=== PATIENT | male | born 1965 | race African-American/Black ===

== ENCOUNTER 2018-06-30 14:13 | Inpatient (IN) | payer MEDICARE, MEDICAID ==
[~2018-06-30] VITALS: Ht 180.3 cm; Wt 86.2 kg
[2018-06-30 14:30] VITALS: BP 120/67
--- NOTE | 2018-06-30 14:30 | NUR ---
ED Nurse Note: pt was brought in to ER by ambulance from [facility] due to abdominal pain 01/31 since 0300 this morning. pt aao x4, has multiple pressure ulcers which were documented, colostomy on Lt lower abdomen, F/C. pt aao x4
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
[2018-06-30] MEDS ORDERED: Morphine Sulfate 4mg/ml Inj (IV USE ONLY) IVP ONE ×2 (14:45→15:15)
--- NOTE | 2018-06-30 15:11 | NUR ---
ED Nurse Note: IV line is not being made due to hard to obtain vein. MD made aware and lab was called to come and draw blood.
--- NOTE | 2018-06-30 15:13 | Diagnostic Imaging Report ---
EXAM: XR Abdomen, 1 View CLINICAL HISTORY: ABD PAIN TECHNIQUE: Frontal supine view of the abdomen/pelvis. COMPARISON: No relevant prior studies available. FINDINGS: Gastrointestinal tract: Paucity of small bowel gas. Bones/joints: No acute fracture. IMPRESSION: Paucity of small bowel gas.
--- NOTE | 2018-06-30 15:16 | Diagnostic Imaging Report ---
EXAM: XR Chest, 1 View CLINICAL HISTORY: ABD PAIN TECHNIQUE: Frontal view of the chest. COMPARISON: No relevant prior studies available. FINDINGS: Lungs: Accentuation of bronchovascular markings. Pleural space: Right pleural calcification or potentially loculated right pneumothorax. Heart: Unremarkable. No cardiomegaly. Mediastinum: Unremarkable. Bones/joints: Left rib fractures. Surgical hardware at midline, could be related to the spine. IMPRESSION: Right pleural calcification or potentially loculated right pneumothorax. CT can characterize as warranted. <MYCVCSECTION> Critical Value Communications 06/30/18 15:20 Verify Receipt Verified receipt with FERNANDO Burrows in ER for Dr. Rodríguez on 06/30 15:19 (-08:00)
--- NOTE | 2018-06-30 15:48 | NUR ---
ED Nurse Note: called lab again to try to draw blood. they said they will come up when they are available.
[2018-06-30 16:05] LABS: APPEARANCE,URINE CLOUDY; BILIRUBIN, URINE NEGATIVE (NEGATIVE); COLOR,URINE PALE YELLOW; GLUCOSE, URINE (UA) NEGATIVE (NEGATIVE); KETONES,URINE NEGATIVE (NEGATIVE); LEUKOCYTE ESTERASE ,URINE 3+ (NEGATIVE); NITRITE,URINE NEGATIVE (NEGATIVE); PH,URINE 8 (4.5-8.0); PROTEIN,URINE 1+ (NEGATIVE); UROBILINOGEN,URINE NORMAL MG/DL (0.0-1.0)
[2018-06-30 16:22] LABS: EOSINOPHILS % (AUTO) 5.4 % (0.0-3.0); HEMATOCRIT 38.6 % (42.0-52.0); HEMOGLOBIN 12.6 G/DL (14.2-18.0); LYMPHOCYTES % (AUTO) 34.4 % (20.0-45.0); MEAN CORPUSCULAR VOLUME 85 FL (80-99); MONOCYTES % (AUTO) 7.6 % (1.0-10.0); NEUTROPHILS % (AUTO) 50.5 % (45.0-75.0); PLATELET COUNT 358 K/UL (150-450); RED BLOOD COUNT 4.54 M/UL (4.70-6.10); RED CELL DISTRIBUTION WIDTH 13.3 % (11.6-14.8); WHITE BLOOD COUNT 10.1 K/UL (4.8-10.8)
[2018-06-30 16:33] LABS: ANION GAP 6 mmol/L (5-15); BLOOD UREA NITROGEN 9 mg/dL (7-18); CALCIUM 9.1 MG/DL (8.5-10.1); CARBON DIOXIDE 30 MMOL/L (21-32); CHLORIDE 102 MMOL/L (98-107); CREATININE 1.1 MG/DL (0.55-1.30); POTASSIUM 3.6 MMOL/L (3.5-5.1); SODIUM 138 MMOL/L (136-145)
[2018-06-30 16:38] LABS: ALANINE AMINOTRANSFERASE 19 U/L (12-78); ALBUMIN 2.5 G/DL (3.4-5.0); ALBUMIN/GLOBULIN RATIO 0.4 (1.0-2.7); ALKALINE PHOSPHATASE 132 U/L (46-116); ASPARTATE AMINO TRANSFERASE 28 U/L (15-37); BILIRUBIN,TOTAL 0.2 MG/DL (0.2-1.0); CREATINE KINASE 296 U/L (26-308)
[2018-06-30] MEDS ORDERED: cefTRIAXone 1 GM in NS 55 ML IVPB ONE (17:15)
--- NOTE | 2018-06-30 17:45 | NUR ---
ED Nurse Note: Report given to ADRIANNA Mendoza
[2018-06-30] MEDS ORDERED: LACTULOSE20 GM/301 ORAL (17:46)
[2018-06-30] MEDS ORDERED: BACLOFEN20 MG ORAL (17:46)
[2018-06-30] MEDS ORDERED: ACETAMINOPHEN325 M1 ORAL (17:46)
[2018-06-30] MEDS ORDERED: CRANBERRY450 M5 PO (17:46)
[2018-06-30] MEDS ORDERED: DOCUSATE SODIU100 MG ORAL (17:46)
[2018-06-30] MEDS ORDERED: MILK OF MA400 MG/51 ORAL (17:46)
[2018-06-30] MEDS ORDERED: TIZANIDINE HCL4 MG ORAL (17:46)
[2018-06-30 17:53] VITALS: BP 120/67
--- NOTE | 2018-06-30 17:55 | NUR ---
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
[2018-06-30] MEDS ORDERED: Morphine Sulfate 4mg/ml Inj (IV USE ONLY) IVP PRN (18:45)
[2018-06-30] MEDS ORDERED: Milk of Magnesia 30ml Ud ORAL PRN (18:45)
[2018-06-30] MEDS ORDERED: oxyCODONE HCL/Acetaminophen 5/325mg ORAL PRN (18:45)
[2018-06-30] MEDS ORDERED: ACIDOPHILUS1 EAC6 PO (18:50)
[2018-06-30] MEDS ORDERED: MULTIVITAMINS1 EAC8 ORAL (18:50)
[2018-06-30] MEDS ORDERED: CYCLOBENZAPRINE5 MG ORAL (18:50)
[2018-06-30] MEDS ORDERED: MOM30 ML ORAL (18:50)
[2018-06-30] MEDS ORDERED: ATIVAN1 MG ORAL (18:50)
--- NOTE | 2018-06-30 19:32 | NUR ---
HAND-OFF: Report given to ADRIANNA mcnally.
--- NOTE | 2018-06-30 19:47 | NUR ---
NURSE NOTES: Received patient awake in bed. eating dinner, no s/s of acute distress, no c/o pain at this time. IV site patent, asymptomatic, dressing dry an Addendum: 06/30/18 at 1952 by Kale Rodriguez RN continued: dressing dry and intact. tim catheter noted, colostomy on left lower quadrant noted. Patient requested extra blanket c/o of room being cold. Bed on lowest position, 2 side rails up, call light within reach.
[2018-06-30 20:00] VITALS: BP 127/69
[2018-06-30] MEDS ORDERED: Hydromorphone 0.5mg/0.5ml inj IVP PRN (21:45)
[2018-06-30 21:46] VITALS: BP 139/73
[2018-06-30] MEDS: Hydromorphone 0.5mg/0.5ml inj IVP PRN (21:49)
[2018-07-01] MEDS: Hydromorphone 0.5mg/0.5ml inj IVP PRN ×5 (03:04→20:43)
[2018-07-01 04:00] VITALS: BP 108/70
--- NOTE | 2018-07-01 07:00 | NUR ---
HAND-OFF: Report given to ADRIANNA Sanders.
--- NOTE | 2018-07-01 07:08 | NUR ---
NURSE NOTES: received report from ADRIANNA Yang. patient in bed. alert. verbally responsive. no respiratory distress noted. no c/o pain at this time. colostomy in place. f/c draining well. IV intact. bed in the lowest position. call light within reach. will continue to monitor.
[2018-07-01 08:00] VITALS: BP 117/67
[2018-07-01] MEDS: Cyclobenzaprine 10mg Tab ORAL SCH ×2 (08:10→17:31)
[2018-07-01] MEDS: Docusate 100mg cap ORAL SCH ×2 (08:11→17:30)
[2018-07-01] MEDS: Lactobacillus-GG tablet ORAL SCH ×2 (08:11→17:30)
[2018-07-01] MEDS: Lactulose 20gm/30ml UDC ORAL SCH (08:12)
[2018-07-01] MEDS: Enoxaparin 40mg Inj SUBQ SCH (08:12)
[2018-07-01 12:00] VITALS: BP 118/70
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
[2018-07-01 16:00] VITALS: BP 105/90
[2018-07-01] MEDS ORDERED: cefTRIAXone 1 GM in D5W 55 ML IVPB SCH (18:00)
--- NOTE | 2018-07-01 18:53 | NUR ---
HAND-OFF: Report given to ADRIANNA Yang.
--- NOTE | 2018-07-01 19:36 | NUR ---
NURSE NOTES: Received patient asleep in bed, no s/s of acute distress. IV site flushing but unable to infuse IVF through pump. tim catheter noted anchor in place, left lower quadrant colostomy noted. Bed on lowest position, call light and belongings within reach, 2 side rails up.
[2018-07-01 20:00] VITALS: BP 121/80
[2018-07-01] MEDS ORDERED: Cefepime HCl 1 GM in D5W 55 ML IVPB SCH (21:00)
[2018-07-01] MEDS ORDERED: oxyCODONE 15mg IR tab ORAL PRN (21:30)
--- NOTE | 2018-07-01 21:30 | NUR ---
NURSE NOTES: IV site painful according to patient. Patient refuses to get a new one reinserted stating "they poked me too many times in the ER already, I dont want to get poked again". Called Dr Carlson for PO abx and pain meds. Orders given and carried out.
[2018-07-01] MEDS ORDERED: cefTRIAXone 1 GM in D5W 50 ML IVPB SCH (22:45)
--- NOTE | 2018-07-01 22:50 | Infectious Diseases Prog Note ---
Assessment/Plan Assessment/Plan Full consult to follow: A) 1) uti 2) abdominal pain 3) pmh noted 4) allergies - nkda P) 1) levofloxacin po, ceftin po (patient refuses iv access) 2) check urine culture 3) check labs 4) thank you Subjective Allergies: Coded Allergies: No Known Allergies (Unverified , 06/30/18) Objective Vital Signs Last 24 Hour Vital Signs Date Time Temp Pulse Resp B/P (MAP) Pulse Ox O2 Delivery O2 Flow Rate FiO2 07/01/18 16:00 98.1 81 17 105/90 (95) 96 07/01/18 12:00 97.7 87 16 118/70 (86) 99 07/01/18 09:00 Room Air 07/01/18 08:00 97.8 72 20 117/67 (84) 97 07/01/18 04:00 98.5 98 16 108/70 (83) 96 Height (Feet): 5 Height (Inches): 11.00 Weight (Pounds): 190 Microbiology Date/Time Source Procedure Growth Status 06/30/18 15:45 Urine,Clean Catch Urine Culture - Preliminary Resulted Current Medications Medications (Trade) Dose Ordered Sig/Constantin Route PRN Reason Start Time Stop Time Status Last Admin Dose Admin Acetaminophen (Tylenol) 650 mg Q6H PRN ORAL Mild Pain/Temp > 100.5 06/30/18 18:45 07/30/18 18:44 Baclofen (Lioresal) 20 mg Q12H PRN ORAL Muscle Spasm 06/30/18 18:45 07/30/18 18:44 Cyclobenzaprine HCl (Flexeril) 5 mg TWICE A DAY ORAL 07/01/18 09:00 07/31/18 08:59 07/01/18 17:31 Docusate Sodium (Colace) 100 mg TWICE A DAY ORAL 07/01/18 09:00 07/31/18 08:59 07/01/18 17:30 Enoxaparin Sodium (Lovenox) 40 mg DAILY SUBQ 07/01/18 09:00 07/31/18 08:59 07/01/18 08:12 Lactobacillus Acidophilus (Culturelle) 1 tab TWICE A DAY ORAL 07/01/18 09:00 07/31/18 08:59 07/01/18 17:30 Lactulose (Cephulac) 20 gm DAILY ORAL 07/01/18 09:00 07/31/18 08:59 07/01/18 08:12 Levofloxacin (Levaquin) 750 mg Q24H ORAL 07/01/18 22:00 07/08/18 21:59 Lorazepam (Ativan) 1 mg Q8H PRN ORAL For Anxiety 06/30/18 18:45 07/07/18 18:44 Magnesium Hydroxide (Mom) 30 ml DAILYPRN PRN ORAL Constipation 06/30/18 18:45 07/30/18 18:44 Multivitamins (Multivitamins) 1 tab DAILY ORAL 07/01/18 09:00 07/31/18 08:59 07/01/18 08:11 Oxycodone HCl (Roxicodone) 15 mg Q4H PRN ORAL Moderate Pain (Pain Scale 4-6) 07/01/18 21:30 07/08/18 21:29 Oxycodone HCl (Roxicodone) 30 mg Q4H PRN ORAL Severe Pain (Pain Scale 7-10) 07/01/18 21:30 07/08/18 21:29 Marjorie Fulton MD Jul 01, 2018 22:50
[2018-07-01] MEDS: Levofloxacin 750mg tab ORAL SCH (23:18)
[2018-07-02] VITALS (7 sets, daily range): BP systolic 101–163; BP diastolic 66–84
[2018-07-02] MEDS: oxyCODONE 15mg IR tab ORAL PRN ×5 (00:41→21:15)
--- NOTE | 2018-07-02 07:13 | NUR ---
HAND-OFF: Report given to ADRIANNA Ramon.
[2018-07-02 07:14] LABS: BASOPHILS % (AUTO) 1.7 % (0.0-2.0); HEMATOCRIT 40.9 % (42.0-52.0); HEMOGLOBIN 13.1 G/DL (14.2-18.0); LYMPHOCYTES % (AUTO) 35.3 % (20.0-45.0); MEAN CORPUSCULAR VOLUME 86 FL (80-99); MONOCYTES % (AUTO) 5.8 % (1.0-10.0); NEUTROPHILS % (AUTO) 51.3 % (45.0-75.0); PLATELET COUNT 395 K/UL (150-450); RED BLOOD COUNT 4.74 M/UL (4.70-6.10); RED CELL DISTRIBUTION WIDTH 13.3 % (11.6-14.8); WHITE BLOOD COUNT 8.6 K/UL (4.8-10.8)
[2018-07-02 07:38] LABS: ANION GAP 6 mmol/L (5-15); BLOOD UREA NITROGEN 9 mg/dL (7-18); CALCIUM 9.6 MG/DL (8.5-10.1); CARBON DIOXIDE 31 MMOL/L (21-32); CHLORIDE 99 MMOL/L (98-107); POTASSIUM 4.4 MMOL/L (3.5-5.1); SODIUM 136 MMOL/L (136-145)
[2018-07-02] MEDS: Lactobacillus-GG tablet ORAL SCH ×2 (08:21→17:13)
[2018-07-02] MEDS: Lactulose 20gm/30ml UDC ORAL SCH ×2 (08:21→08:39)
[2018-07-02] MEDS: Cyclobenzaprine 10mg Tab ORAL SCH ×2 (08:22→17:13)
[2018-07-02] MEDS: Enoxaparin 40mg Inj SUBQ SCH (08:30)
[2018-07-02] MEDS: Docusate 100mg cap ORAL SCH ×2 (08:38→17:13)
[2018-07-02] MEDS: LORazepam 1mg tab ORAL PRN ×2 (10:10→23:17)
--- NOTE | 2018-07-02 14:30 | NUR ---
NURSE NOTES: dressing of L ischial tuberosity close to sacral area, L reyna and R foot was evaluated and changed by WCN, with assistance of primary nurse. Also, applied Calazime barrier cream to small skin erosion at tip of penis.
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
--- NOTE | 2018-07-02 17:29 | Infectious Diseases Prog Note ---
Assessment/Plan Assessment/Plan Full consult to follow: A) 1) gram neg uti, complicated uti 2) abdominal pain 3) pmh noted 4) allergies - nkda P) 1) levofloxacin po, ceftin po (patient refuses iv access) 2) check urine culture final 3) check labs 4) d/w Dr. Carlson Subjective Constitutional: Denies: fever Respiratory: Denies: shortness of breath Cardiovascular: Denies: chest pain Gastrointestinal/Abdominal: Denies: nausea, vomiting Neurologic: Denies: headache Allergies: Coded Allergies: No Known Allergies (Unverified , 06/30/18) Objective Vital Signs Last 24 Hour Vital Signs Date Time Temp Pulse Resp B/P (MAP) Pulse Ox O2 Delivery O2 Flow Rate FiO2 07/02/18 12:00 98.2 87 19 114/66 (82) 96 07/02/18 09:00 Room Air 07/02/18 08:52 97.2 07/02/18 08:00 97.7 99 18 121/73 (89) 96 07/02/18 04:00 97.2 102 18 112/70 (84) 97 07/02/18 00:00 98.0 100 18 120/79 (93) 96 07/01/18 21:00 Room Air 07/01/18 20:00 98.4 100 18 121/80 (94) 100 Height (Feet): 5 Height (Inches): 11.00 Weight (Pounds): 190 General Appearance: no acute distress HEENT: normocephalic, atraumatic, anicteric, mucous membranes moist Respiratory/Chest: lungs clear, normal breath sounds, no respiratory distress Cardiovascular: normal rate, regular rhythm Abdomen: normal bowel sounds, soft, non tender, no organomegaly Microbiology Date/Time Source Procedure Growth Status 06/30/18 15:50 Nasal Nares MRSA Culture - Final NO METHICILLIN RESISTANT STAPH AUREUS... Complete 06/30/18 15:45 Urine,Clean Catch Urine Culture - Preliminary Gram Negative Bacillus 1 Gram Negative Bacillus 2 Resulted 06/30/18 15:50 Rectum VRE Culture - Final NO VANCOMYCIN RESISTANT ENTEROCOCCUS ... Resulted 06/30/18 15:50 Rectum Pending Resulted Laboratory Tests Test 07/02/18 05:40 White Blood Count 8.6 K/UL (4.8-10.8) Red Blood Count 4.74 M/UL (4.70-6.10) Hemoglobin 13.1 G/DL (14.2-18.0) L Hematocrit 40.9 % (42.0-52.0) L Mean Corpuscular Volume 86 FL (80-99) Mean Corpuscular Hemoglobin 27.7 PG (27.0-31.0) Mean Corpuscular Hemoglobin Concent 32.1 G/DL (32.0-36.0) Red Cell Distribution Width 13.3 % (11.6-14.8) Platelet Count 395 K/UL (150-450) Mean Platelet Volume 5.3 FL (6.5-10.1) L Neutrophils (%) (Auto) 51.3 % (45.0-75.0) Lymphocytes (%) (Auto) 35.3 % (20.0-45.0) Monocytes (%) (Auto) 5.8 % (1.0-10.0) Eosinophils (%) (Auto) 6.0 % (0.0-3.0) H Basophils (%) (Auto) 1.7 % (0.0-2.0) Sodium Level 136 MMOL/L (136-145) Potassium Level 4.4 MMOL/L (3.5-5.1) Chloride Level 99 MMOL/L (98-107) Carbon Dioxide Level 31 MMOL/L (21-32) Anion Gap 6 mmol/L (5-15) Blood Urea Nitrogen 9 mg/dL (7-18) Creatinine 1.0 MG/DL (0.55-1.30) Estimat Glomerular Filtration Rate > 60 mL/min (>60) Glucose Level 89 MG/DL (74-106) Calcium Level 9.6 MG/DL (8.5-10.1) Current Medications Medications (Trade) Dose Ordered Sig/Constantin Route PRN Reason Start Time Stop Time Status Last Admin Dose Admin Acetaminophen (Tylenol) 650 mg Q6H PRN ORAL Mild Pain/Temp > 100.5 06/30/18 18:45 07/30/18 18:44 Baclofen (Lioresal) 20 mg Q12H PRN ORAL Muscle Spasm 06/30/18 18:45 07/30/18 18:44 Cefuroxime Axetil (Ceftin) 500 mg EVERY 12 HOURS ORAL 07/02/18 09:00 07/09/18 08:59 07/02/18 08:48 Cyclobenzaprine HCl (Flexeril) 5 mg TWICE A DAY ORAL 07/01/18 09:00 07/31/18 08:59 07/02/18 08:22 Docusate Sodium (Colace) 100 mg TWICE A DAY ORAL 07/01/18 09:00 07/31/18 08:59 07/01/18 17:30 Enoxaparin Sodium (Lovenox) 40 mg DAILY SUBQ 07/01/18 09:00 07/31/18 08:59 07/02/18 08:30 Lactobacillus Acidophilus (Culturelle) 1 tab TWICE A DAY ORAL 07/01/18 09:00 07/31/18 08:59 07/02/18 17:13 Lactulose (Cephulac) 20 gm DAILY ORAL 07/01/18 09:00 07/31/18 08:59 07/01/18 08:12 Levofloxacin (Levaquin) 750 mg Q24H ORAL 07/01/18 22:00 07/08/18 21:59 07/01/18 23:18 Lorazepam (Ativan) 1 mg Q8H PRN ORAL For Anxiety 06/30/18 18:45 07/07/18 18:44 07/02/18 10:10 Magnesium Hydroxide (Mom) 30 ml DAILYPRN PRN ORAL Constipation 06/30/18 18:45 07/30/18 18:44 Multivitamins (Multivitamins) 1 tab DAILY ORAL 07/01/18 09:00 07/31/18 08:59 07/02/18 08:21 Oxycodone HCl (Roxicodone) 15 mg Q4H PRN ORAL Moderate Pain (Pain Scale 4-6) 07/01/18 21:30 07/08/18 21:29 Oxycodone HCl (Roxicodone) 30 mg Q4H PRN ORAL Severe Pain (Pain Scale 7-10) 07/01/18 21:30 07/08/18 21:29 07/02/18 16:35 Marjorie Fulton MD Jul 02, 2018 17:29
--- NOTE | 2018-07-02 19:02 | NUR ---
CASE MANAGEMENT: REVIEW 53/M PRESENTED TO ED FROM HOME CC: ABD PAIN SI: ABD PAIN T 98.4 HR 119 RR 16 BP 105/75 SAT 96% ROOM AIR ALK PHOS 132 LIPASE 63 IS: NS IVF BOLUS X1 MORPHINE IV X1 ZOFRAN IV X1 MORPHINE IV X1 DILAUDID IV PATIENT ADMITTED TO MED/SURG 06/30/2018 DCP: PATIENT IS FROM [facility]
--- NOTE | 2018-07-02 19:16 | NUR ---
HAND-OFF: Report given to ADRIANNA Morales.
--- NOTE | 2018-07-02 19:47 | NUR ---
NURSE NOTES: Received patient in bed, alert oriented x4, bed bound, call light is within reach, bed is in locked, lowered, and alarm is on, no acute distress noted. Will continue to monitor for safety and comfort.
[2018-07-02] MEDS: Levofloxacin 750mg tab ORAL SCH (21:11)
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
[2018-07-03 00:10] VITALS: BP 97/69
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
[2018-07-03] MEDS: oxyCODONE 15mg IR tab ORAL PRN ×4 (02:03→16:32)
[2018-07-03 04:34] VITALS: BP 102/63
--- NOTE | 2018-07-03 07:03 | NUR ---
NURSE NOTES: Received a message from the lab , patient is positive for ESBL in the urine, called MD exchange and left a message for the MD.
--- NOTE | 2018-07-03 07:26 | NUR ---
HAND-OFF: Report given to Anna RODAS.
[2018-07-03 08:00] VITALS: BP 107/66
--- NOTE | 2018-07-03 08:19 | NUR ---
NURSE NOTES: Patient is alert and oriented X4. Patient reports having pressure on abdomen rather than pain. Patient is on P200 mattress. Bed is locked, in lowest position, and call light is within reach. Will continue to monitor.
[2018-07-03] MEDS: Lactobacillus-GG tablet ORAL SCH (08:42)
[2018-07-03] MEDS: Docusate 100mg cap ORAL SCH (08:42)
[2018-07-03] MEDS: Lactulose 20gm/30ml UDC ORAL SCH (08:42)
[2018-07-03] MEDS: Enoxaparin 40mg Inj SUBQ SCH (08:43)
[2018-07-03] MEDS: Cyclobenzaprine 10mg Tab ORAL SCH (08:50)
[2018-07-03] MEDS: LORazepam 1mg tab ORAL PRN (08:58)
--- NOTE | 2018-07-03 09:19 | NUR ---
*-* DISCHARGE PLANNING *--* PATIENT HAS BEEN REFERRED BACK TO: [facility] P:[phone] F:[phone]
[2018-07-03 12:00] VITALS: BP 121/68
--- NOTE | 2018-07-03 13:11 | Surgery Progress Note ---
Surgery Progress Note Subjective Symptoms: improved, pain absent, tolerating diet, passing flatus - ostomy , BM - ostomy Additional Comments doing well. wants to go home Objective Last 24 Hour Vital Signs Date Time Temp Pulse Resp B/P (MAP) Pulse Ox O2 Delivery O2 Flow Rate FiO2 07/03/18 12:00 97.2 92 16 121/68 (85) 07/03/18 08:45 Room Air 07/03/18 08:00 97.9 92 107/66 (80) 07/03/18 04:34 98.0 88 18 102/63 (76) 07/03/18 00:10 97.8 91 18 97/69 (78) 07/02/18 21:49 Room Air 07/02/18 20:00 97.9 98 18 101/75 (84) 96 07/02/18 16:00 97.6 91 18 101/68 (79) 97 I&O Intake and Output 07/02/18 07/03/18 18:59 06:59 Intake Total 1500 ml Output Total 650 ml Balance 1500 ml -650 ml Intake Oral 1500 ml Output Urine Total 650 ml Drains: none Cardiovascular: RSR Respiratory: clear Abdomen: soft, flat, non-tender, present bowel sounds, non-distended Extremities: no tenderness, no cyanosis, other Plan Problems: (1) Abdominal pain Assessment & Plan: This is a 53-year-old male with chronic abdominal pain that intermittently gets worse. Pain is a cramping pain that he has had since his injury. Patient has sensory is diminished in his abdominal region and no sensory below his hips. Recently patient was an outside facility where full workup was done and no organic etiology was found for his discomfort. Patient states that pain is improved with narcotic pain medications. Patient noted to have a UTI on admission no acute surgical intervention planned okay for diet okay to d/c from surgical standpoint will follow with exams wound care - turn q2h, air soft mattress, wash skin abrasions daily and apply skin protectant and foam dressings, keep pillow between legs, heel protectors, hydrogel to buttock/sacral wound and foam dressing. thank you Gaston Farah Jul 03, 2018 13:11
[2018-07-03] MEDS ORDERED: BACTRIM DS TAB1 EAC1 ORAL (13:12)
[2018-07-03] MEDS ORDERED: LEVAQUIN750 MG ORAL (13:13)
--- NOTE | 2018-07-03 17:11 | NUR ---
NURSE NOTES: Patient discharged to [facility]. Patient stable upon discharge. Discharge instructions given to ambulance personnel. Belongings reviewed and accounted for. Report given to Bill at [facility].
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
--- NOTE | 2018-07-05 09:33 | Cardiology Report ---
APPROVED REPORT EKG Measurement Heart [id number] Sinus tachycardia Possible Left atrial enlargement Nonspecific T wave abnormality Abnormal ECG
== END 2018-07-03 16:44 | DRG 690 ==
LOC: EDBD 14:13 → EMR 14:58 → 4E 16:30 → EDBEDREQ 17:04
DX: N39.0 Urinary tract infection, site not specified (principal); G82.20 Paraplegia, unspecified; R33.9 Retention of urine, unspecified; T14.90XS Injury, unspecified, sequela; V09.20XS Pedestrian injured in traffic accident involving unspecified motor vehicles, sequela; G89.29 Other chronic pain; R10.9 Unspecified abdominal pain; Z43.3 Encounter for attention to colostomy; L89.899 Pressure ulcer of other site, unspecified stage; B96.89 Other specified bacterial agents as the cause of diseases classified elsewhere; Z16.12 Extended spectrum beta lactamase (ESBL) resistance
CPT/HCPCS: 36415; 71045; 74018; 80048; 80053; 81003; 82550; 83690; 85025; 85610; 85730; 86850; 86900; 86901; 87081; 87086; 87181; 93005; 96361; 96365; 96375; 96376; 99285

== ENCOUNTER 2018-08-07 10:47 | Outpatient (CLI) | payer MEDICARE, MEDICAID ==
[~2018-08-07] VITALS: Ht 180.3 cm; Wt 86.6 kg
[~2018-08-07 10:47] MED LIST: ACETAMINOPHEN325 M1 ORAL; ACIDOPHILUS1 EAC6 PO; ATIVAN1 MG ORAL; BACLOFEN20 MG ORAL; BACTRIM DS TAB1 EAC1 ORAL; CRANBERRY450 M5 PO; CYCLOBENZAPRINE5 MG ORAL; DOCUSATE SODIU100 MG ORAL; LACTULOSE20 GM/301 ORAL; LEVAQUIN750 MG ORAL; MILK OF MA400 MG/51 ORAL; MOM30 ML ORAL; MULTIVITAMINS1 EAC8 ORAL; TIZANIDINE HCL4 MG ORAL
[2018-08-07 13:15] VITALS: BP 120/77
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
== END 2018-08-07 13:44 | disposition home or self-care (01) ==
LOC: PAN 10:47
DX: K59.03 Drug induced constipation (principal); T40.605A Adverse effect of unspecified narcotics, initial encounter; Y92.9 Unspecified place or not applicable; Z93.3 Colostomy status; R33.9 Retention of urine, unspecified
CPT/HCPCS: 99202

== ENCOUNTER 2018-08-12 18:28 | Emergency (ER) | payer MEDICARE, MEDICAID ==
[~2018-08-12] VITALS: Ht 180.3 cm; Wt 86.6 kg
[2018-08-12 18:24] VITALS: BP 116/74
--- NOTE | 2018-08-12 18:29 | NUR ---
ED Nurse Note: Pt brought in to ER by ambulance from [facility] due to unusual behavior for a short amount of time medina Addendum: 08/12/18 at 1830 by [email or web address] ED Nurse Note: Pt brought in to ER by ambulance from [facility] due to abnormal behavior for a short amount of time including not verbally respond with eyes opened, rolling eyes, saying inappropriate things which are unusual for the pt. pt is aao x4 and bed bound. Kelley catheter and colostomy present. pt is not having abnormal behaviors at this time. pt denied histories of seizure, LOC. skin will be assessed after pt seen by doctor.
[2018-08-12 19:07] LABS: APPEARANCE,URINE CLEAR; BILIRUBIN, URINE NEGATIVE (NEGATIVE); COLOR,URINE BROWN; GLUCOSE, URINE (UA) NEGATIVE (NEGATIVE); KETONES,URINE 1+ (NEGATIVE); LEUKOCYTE ESTERASE ,URINE 2+ (NEGATIVE); NITRITE,URINE NEGATIVE (NEGATIVE); PH,URINE 6 (4.5-8.0); PROTEIN,URINE 3+ (NEGATIVE); UROBILINOGEN,URINE 1 MG/DL (0.0-1.0)
--- NOTE | 2018-08-12 19:10 | NUR ---
HAND-OFF: Report given to ADRIANNA Martell. Urine has sent. unable to make IV HL. reported ERMD and radiology technition at bedside for IV line with ultrasound machine. blood needs to be drawn.
--- NOTE | 2018-08-12 19:11 | NUR ---
HAND-OFF: Endorsed that pt's back side of skin needs to be assessed.
--- NOTE | 2018-08-12 19:15 | NUR ---
ED Nurse Note: RECIEVED REPORT TO RESUME CARE, PT IN BED AWAKE, ALERT AND ORIENTED X 4, PT IS CURRENTLY HAVING IV LINE STARTED VIA ULTRASOUND BY TECH AT BEDSIDE NOW, PT IS ON CARDIAC MONITORING, PT C/O HAVING BACK PAIN, PT SPOUSE AT BEDSIDE, BOTH EATING AND DRINKING, WILL RESUME CARE ORDERED WHEN COMPLETED.
[2018-08-12] MEDS ORDERED: UNOBMED (19:21)
[2018-08-12] MEDS ORDERED: Hydromorphone 0.5mg/0.5ml inj IVP ONE (19:30)
[2018-08-12 19:54] LABS: BASOPHILS % (AUTO) 2.1 % (0.0-2.0); EOSINOPHILS % (AUTO) 8.1 % (0.0-3.0); HEMATOCRIT 37.2 % (42.0-52.0); HEMOGLOBIN 12.1 G/DL (14.2-18.0); LYMPHOCYTES % (AUTO) 38.5 % (20.0-45.0); MEAN CORPUSCULAR VOLUME 82 FL (80-99); MONOCYTES % (AUTO) 7.9 % (1.0-10.0); NEUTROPHILS % (AUTO) 43.4 % (45.0-75.0); PLATELET COUNT 390 K/UL (150-450); RED BLOOD COUNT 4.51 M/UL (4.70-6.10); RED CELL DISTRIBUTION WIDTH 12.9 % (11.6-14.8); WHITE BLOOD COUNT 10.3 K/UL (4.8-10.8)
[2018-08-12 20:00] VITALS: BP 122/78
--- NOTE | 2018-08-12 20:00 | NUR ---
ED Nurse Note: IV LINE PLACED BY TECH, PT HAS 20 GAUGE IN RIGHT AC, LABS DRAWN AND SENT AND PT MEDICATED ORDERED, WILL RESUME CARE AND CONTINUE TO CLOSELY MONITOR.
[2018-08-12 20:09] LABS: ANION GAP 5 mmol/L (5-15); BLOOD UREA NITROGEN 10 mg/dL (7-18); CALCIUM 8.8 MG/DL (8.5-10.1); CARBON DIOXIDE 32 MMOL/L (21-32); CHLORIDE 100 MMOL/L (98-107); POTASSIUM 3.8 MMOL/L (3.5-5.1); SODIUM 137 MMOL/L (136-145)
[2018-08-12 20:15] LABS: ALANINE AMINOTRANSFERASE 26 U/L (12-78); ALBUMIN 2.5 G/DL (3.4-5.0); ALBUMIN/GLOBULIN RATIO 0.4 (1.0-2.7); ALKALINE PHOSPHATASE 137 U/L (46-116); ASPARTATE AMINO TRANSFERASE 31 U/L (15-37); BILIRUBIN,TOTAL 0.4 MG/DL (0.2-1.0)
--- NOTE | 2018-08-12 20:49 | NUR ---
Dr.Shakibai miller.
--- NOTE | 2018-08-12 20:54 | NUR ---
Spoke with Criss at [facility]-aware of patient going back by ambulance.
--- NOTE | 2018-08-12 20:59 | NUR ---
Spoke with Homer at [phone]
[2018-08-12 21:00] VITALS: BP 126/85
[2018-08-12] MEDS ORDERED: DIAZEPAM IV ONE (21:00)
[2018-08-12] MEDS ORDERED: [UNRECOGNIZED DRUG - OTHER] IV ONE (21:00)
--- NOTE | 2018-08-12 21:42 | Emergency Room Report ---
History of Present Illness General Chief Complaint: Altered Level of Consciousness Source: Patient, Family Member, Medical Record, EMS Present Illness HPI 53-year-old male presents ED for evaluation. Brought in by EMS from [facility]. Per nursing report patient had an episode where he appeared altered. Patient's eyes rolled into the back of his head. Confused for a few seconds so 911 was called. Patient at this time states he feels fine. States that he never lost consciousness. States that he did have an episode where he was experiencing intense spasm pain. States he is paraplegic. Often gets cramps in his back and stomach. Has a colostomy bag. Also has a decubitus ulcer on his lower back which is healing. Denies fevers or chills. Denies any weakness. Denies any headache. No other aggravating relieving factors. Denies any other associated symptoms Allergies: Coded Allergies: No Known Allergies (Unverified , 06/30/18) Patient History Past Medical History: HTN, other - paraplegic Past Surgical History: other - colostomy Pertinent Family History: none Social History: Denies: smoking, alcohol use, drug use Immunizations: UTD Reviewed Nursing Documentation: PMH: Agreed; PSxH: Agreed Nursing Documentation-PMH Hx Cardiac Problems: No Hx Hypertension: Yes Hx Cancer: No Hx Neurologic Surgery: Yes - spine surgery Review of Systems All Other Systems: negative except mentioned in HPI Physical Exam Vital Signs Date Time Temp Pulse Resp B/P (MAP) Pulse Ox O2 Delivery O2 Flow Rate FiO2 08/12/18 18:05 100 20 08/12/18 18:05 97.9 110/71 95 Room Air Sp02 EP Interpretation: reviewed, normal General Appearance: no apparent distress, alert, GCS 15, non-toxic Head: normocephalic, atraumatic Eyes: bilateral eye normal inspection, bilateral eye PERRL ENT: hearing grossly normal, normal pharynx, no angioedema, normal voice Neck: full range of motion, supple/symm/no masses Respiratory: chest non-tender, lungs clear, normal breath sounds, speaking full sentences Cardiovascular #1: regular rate, rhythm, no edema Cardiovascular #2: 2+ carotid (R), 2+ carotid (L), 2+ radial (R), 2+ radial (L) , 2+ dorsalis pedis (R), 2+ dorsalis pedis (L) Gastrointestinal: normal bowel sounds, non tender, soft, non-distended, no guarding, no rebound, other - colsotomy Rectal: deferred Genitourinary: normal inspection, no CVA tenderness Musculoskeletal: back normal, gait/station normal, normal range of motion, non- tender Neurologic: alert, oriented x3, responsive, speech normal Psychiatric: judgement/insight normal, memory normal, mood/affect normal, no suicidal/homicidal ideation Reflexes: 3+ bicep (R), 3+ bicep (L), 3+ tricep (R), 3+ tricep (L), 3+ knee (R) , 3+ knee (L) Skin: other - 4x4 decubitus ulcer to L proximal posterior thigh. no fluctuance or discahrge Lymphatic: no adenopathy Medical Decision Making Diagnostic Impression: Primary Impression: Altered level of consciousness Additional Impressions: Muscle spasm Decubitus ulcer Qualified Codes: L89.90 - Pressure ulcer of unspecified site, unspecified stage ER Course Hospital Course 53-year-old male presents with reported altered level of consciousness. Awake alert oriented 3 here Differential diagnoses include: Pneumonia, UTI, dehydration Clinical course Patient placed on stretcher. On moving worker with stable vitals are ED course. After initial history and physical, I ordered labs, IV fluids, UA Patient has difficult IV access. midline IV access placed via US Labs - electrolytes ok,no leukocytosis, hemoglobin/hematocrit stable, UA negative Patient was recently treated for UTI. Completed prescription yesterday. Was on Keflex. Paperwork from [facility] shows sensitivity to cephalosporins. Patient did have a decubitus ulcer just below the buttock on the left thigh. It appears to be healing. patient is afebrile, nontoxic. I believe patient's presentation likely secondary to pain. Patient is on extensive pain medications and antispasmodic medications. Discussed with PMD Dr. Hardy and he agrees the patient can be safely discharged back to [facility] I feel this is a highly complex case requiring extensive working including EKG/ Rhythm strip, Xray/CT/US, Blood/urine lab work, repeat exams while in ED, and administration of strong opiates/narcotics for pain control, admission to hospital or close patient follow up. Diagnosis - ALOC, muscle spasm, decubitus ulcer Stable and discharged back to [facility]. Follow-up with PMD. Return to ED if symptoms recur or worsen Labs Test 08/12/18 19:00 White Blood Count 10.3 K/UL (4.8-10.8) Red Blood Count 4.51 M/UL (4.70-6.10) Hemoglobin 12.1 G/DL (14.2-18.0) Hematocrit 37.2 % (42.0-52.0) Mean Corpuscular Volume 82 FL (80-99) Mean Corpuscular Hemoglobin 26.8 PG (27.0-31.0) Mean Corpuscular Hemoglobin Concent 32.6 G/DL (32.0-36.0) Red Cell Distribution Width 12.9 % (11.6-14.8) Platelet Count 390 K/UL (150-450) Mean Platelet Volume 4.6 FL (6.5-10.1) Neutrophils (%) (Auto) 43.4 % (45.0-75.0) Lymphocytes (%) (Auto) 38.5 % (20.0-45.0) Monocytes (%) (Auto) 7.9 % (1.0-10.0) Eosinophils (%) (Auto) 8.1 % (0.0-3.0) Basophils (%) (Auto) 2.1 % (0.0-2.0) Urine Color Brown Urine Appearance Clear Urine pH 6 (4.5-8.0) Urine Specific [place] 1.020 (1.005-1.035) Urine Protein 3+ (NEGATIVE) Urine Glucose (UA) Negative (NEGATIVE) Urine Ketones 1+ (NEGATIVE) Urine Blood 4+ (NEGATIVE) Urine Nitrite Negative (NEGATIVE) Urine Bilirubin Negative (NEGATIVE) Urine Urobilinogen 1 MG/DL (0.0-1.0) Urine Leukocyte Esterase 2+ (NEGATIVE) Urine RBC 5-10 /HPF (0 - 0) Urine WBC 2-4 /HPF (0 - 0) Urine Squamous Epithelial Cells None /LPF (NONE/OCC) Urine Calcium Oxalate Crystals Few /LPF (NONE) Urine Bacteria Few /HPF (NONE) Sodium Level 137 MMOL/L (136-145) Potassium Level 3.8 MMOL/L (3.5-5.1) Chloride Level 100 MMOL/L (98-107) Carbon Dioxide Level 32 MMOL/L (21-32) Anion Gap 5 mmol/L (5-15) Blood Urea Nitrogen 10 mg/dL (7-18) Creatinine 1.0 MG/DL (0.55-1.30) Estimat Glomerular Filtration Rate > 60 mL/min (>60) Glucose Level 94 MG/DL (74-106) Calcium Level 8.8 MG/DL (8.5-10.1) Total Bilirubin 0.4 MG/DL (0.2-1.0) Aspartate Amino Transf (AST/SGOT) 31 U/L (15-37) Alanine Aminotransferase (ALT/SGPT) 26 U/L (12-78) Alkaline Phosphatase 137 U/L (46-116) Total Protein 8.4 G/DL (6.4-8.2) Albumin 2.5 G/DL (3.4-5.0) Globulin 5.9 g/dL Albumin/Globulin Ratio 0.4 (1.0-2.7) Last Vital Signs Date Time Temp Pulse Resp B/P (MAP) Pulse Ox O2 Delivery O2 Flow Rate FiO2 08/12/18 21:00 97.9 110 18 126/85 98 Room Air Status: improved Disposition: XFER SNF Condition: Stable Referrals: Marii Lester MD (PCP) Jonathon Mathew MD Aug 12, 2018 21:42
[2018-08-12 21:45] VITALS: BP 105/84
--- NOTE | 2018-08-12 22:10 | NUR ---
ER DISCHARGE NOTE: Patient is cleared to be discharged per ERMD, pt is aox4, on room air, with stable vital signs. pt was given dc and prescription instructions, pt was able to verbalize understanding, pt id band and iv site removed without complications. pt being taken by [facility] ambulance rig#[id number], report and d/c package given to driver/refuse collector priscila, pt spouse also present and going also. nad noted during transport.
[2018-08-12 22:11] VITALS: BP 105/84
--- NOTE | 2018-08-13 09:17 | Diagnostic Imaging Report ---
Indication: Chest pain Technique: One view of the chest Comparison: 06/30/2018 Findings: The lungs and pleural spaces are clear. The heart size is normal. There are healed rib fractures bilaterally. There is evidence of prior thoracic spine surgery. No significant interim change Impression: No acute process. Stable findings as noted
== END 2018-08-12 22:05 ==
LOC: EDBD 18:28 → EMR 19:24
DX: R41.82 Altered mental status, unspecified (principal); M62.838 Other muscle spasm; L89.899 Pressure ulcer of other site, unspecified stage; G82.20 Paraplegia, unspecified; I10 Essential (primary) hypertension; L89.109 Pressure ulcer of unspecified part of back, unspecified stage; Z93.3 Colostomy status
CPT/HCPCS: 36415; 71045; 80053; 81003; 85025; 96361; 96374; 96375; 99284; J1170; J3360

== ENCOUNTER 2018-08-14 19:45 | Inpatient (IN) | payer MEDICARE, MEDICAID ==
[~2018-08-14] VITALS: Ht 180.3 cm; Wt 67.3 kg
[~2018-08-14 19:45] MED LIST changes: +UNOBMED
[2018-08-14 20:00] VITALS: BP 111/55
[2018-08-14] MEDS ORDERED: ROXICODONE5 MG ORAL (20:30)
[2018-08-14] MEDS ORDERED: OXYCONTIN10 MG ORAL (20:30)
[2018-08-14] MEDS ORDERED: ACETAMINOPHEN325 M1 ORAL (20:30)
[2018-08-14] MEDS ORDERED: ZINC SULFATE220 M1 ORAL (20:30)
[2018-08-14] MEDS ORDERED: CARISOPRODOL350 MG ORAL (20:30)
[2018-08-14] MEDS ORDERED: VITAMIN C500 M1 ORAL (20:30)
[2018-08-14 21:42] LABS: APPEARANCE,URINE CLEAR; BILIRUBIN, URINE NEGATIVE (NEGATIVE); GLUCOSE, URINE (UA) NEGATIVE (NEGATIVE); KETONES,URINE NEGATIVE (NEGATIVE); LEUKOCYTE ESTERASE ,URINE 1+ (NEGATIVE); NITRITE,URINE NEGATIVE (NEGATIVE); PH,URINE 6.5 (4.5-8.0); PROTEIN,URINE 2+ (NEGATIVE); UROBILINOGEN,URINE 4 MG/DL (0.0-1.0)
[2018-08-14 21:45] LABS: COLOR,URINE YELLOW
[2018-08-14 22:08] LABS: BASOPHILS % (AUTO) 1.8 % (0.0-2.0); EOSINOPHILS % (AUTO) 6.2 % (0.0-3.0); HEMATOCRIT 38.7 % (42.0-52.0); HEMOGLOBIN 12.7 G/DL (14.2-18.0); LYMPHOCYTES % (AUTO) 40.5 % (20.0-45.0); MEAN CORPUSCULAR VOLUME 83 FL (80-99); MONOCYTES % (AUTO) 8.9 % (1.0-10.0); NEUTROPHILS % (AUTO) 42.6 % (45.0-75.0); PLATELET COUNT 385 K/UL (150-450); RED BLOOD COUNT 4.67 M/UL (4.70-6.10); RED CELL DISTRIBUTION WIDTH 13.1 % (11.6-14.8); WHITE BLOOD COUNT 8.7 K/UL (4.8-10.8)
[2018-08-14 22:23] LABS: ANION GAP 8 mmol/L (5-15); BLOOD UREA NITROGEN 12 mg/dL (7-18); CALCIUM 9.2 MG/DL (8.5-10.1); CARBON DIOXIDE 28 MMOL/L (21-32); CHLORIDE 100 MMOL/L (98-107); CREATININE 0.8 MG/DL (0.55-1.30); POTASSIUM 4.3 MMOL/L (3.5-5.1); SODIUM 136 MMOL/L (136-145)
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
[2018-08-14 22:30] LABS: ALANINE AMINOTRANSFERASE 27 U/L (12-78); ALBUMIN 2.7 G/DL (3.4-5.0); ALBUMIN/GLOBULIN RATIO 0.4 (1.0-2.7); ALKALINE PHOSPHATASE 138 U/L (46-116); ASPARTATE AMINO TRANSFERASE 44 U/L (15-37); BILIRUBIN,TOTAL 0.5 MG/DL (0.2-1.0)
[2018-08-15 01:36] VITALS: BP 129/75
[2018-08-15 03:51] VITALS: BP 125/58
[2018-08-15 08:00] VITALS: BP 123/76
[2018-08-15] MEDS ORDERED: Nulytely 4L ORAL ONE (08:00)
[2018-08-15] MEDS ORDERED: Docusate 100mg cap ORAL PRN (08:45)
[2018-08-15] MEDS: Ascorbic Acid 500mg tab ORAL SCH (08:52)
[2018-08-15] MEDS: Zinc Sulfate 220mg cap ORAL SCH (08:52)
[2018-08-15] MEDS: Multivitamin w/Minerals tab ORAL SCH (08:52)
[2018-08-15] MEDS: oxyCODONE 5mg IR tab ORAL PRN ×2 (08:53→20:33)
[2018-08-15] MEDS: Heparin 5000 units/ml inj SUBQ SCH ×2 (08:56→20:26)
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
[2018-08-15 16:00] VITALS: BP 134/88
[2018-08-15] MEDS ORDERED: Nulytely 4L ORAL SCH (16:00)
[2018-08-15] MEDS ORDERED: Bisacodyl EC 5mg tab ORAL SCH (16:00)
[2018-08-15 20:00] VITALS: BP 119/76
[2018-08-15] MEDS ORDERED: Polyethylene Glycol 238gm bottle ORAL SCH (21:30)
[2018-08-15] MEDS ORDERED: Magnesium Citrate Liq Btl ORAL ONE (21:30)
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
[2018-08-15] MEDS ORDERED: Fleet's Enema 133ml RECTAL ONE (23:00)
[2018-08-15] MEDS ORDERED: oxyCODONE 5mg IR tab ORAL PRN (23:45)
[2018-08-16] VITALS: BP 119/74
[2018-08-16] MEDS: oxyCODONE 5mg IR tab ORAL PRN (03:20)
[2018-08-16 04:00] VITALS: BP 129/79
--- NOTE | 2018-08-16 07:24 | Anethesia Preoperative Eval ---
Anesthesia Pre-op PMH/ROS General Date of Evaluation: Aug 16, 2018 Time of Evaluation: 07:23 Anesthesiologist: shanique ASA Score: ASA 3 Mallampati Score Class I : Soft palate, uvula, fauces, pillars visible Class II: Soft palate, uvula, fauces visible Class III: Soft palate, base of uvula visible Class IV: Only hard plate visible Surgeon: summer Diagnosis: abdominal pain Surgical Procedure: colonoscopy Allergies: Coded Allergies: No Known Allergies (Unverified , 06/30/18) Anesthesia Pre-op Phys. Exam Physician Exam Last Vital Signs Date Time Temp Pulse Resp B/P (MAP) Pulse Ox O2 Delivery O2 Flow Rate FiO2 08/16/18 04:00 97.9 83 19 129/79 (96) 98 08/15/18 21:00 Room Air Terri Hayes MD Aug 16, 2018 07:24
[2018-08-16] MEDS ORDERED: DiphenhydrAMINE 50mg/ml Inj IVP PRN (07:30)
[2018-08-16] MEDS ORDERED: fentaNYL 100 mcg/2 mL IV PRN (07:30)
[2018-08-16] MEDS ORDERED: Midazolam 2mg/2ml Inj IVP PRN (07:30)
[2018-08-16] MEDS ORDERED: Atropine Inj 1mg/10ml Syr IV PRN (07:30)
[2018-08-16 08:00] VITALS: BP 126/80
[2018-08-16] MEDS: Multivitamin w/Minerals tab ORAL SCH (09:00)
[2018-08-16] MEDS: Zinc Sulfate 220mg cap ORAL SCH (09:00)
[2018-08-16] MEDS: Ascorbic Acid 500mg tab ORAL SCH (09:00)
[2018-08-16] MEDS: Heparin 5000 units/ml inj SUBQ SCH ×2 (09:00→21:55)
[2018-08-16] MEDS ORDERED: oxyCONTIN 10mg tab ORAL SCH ×3 (09:45→17:00)
--- NOTE | 2018-08-16 10:37 | GI Progress Note ---
Assessment/Plan Problems: (1) Colonoscopy planned SNOMED: 299931735 (2) Colostomy in place ICD Codes: Z93.3 - Colostomy status SNOMED: 776284198, 130102886 (3) Drug abuse ICD Codes: F19.10 - Other psychoactive substance abuse, uncomplicated SNOMED: 67130693 (4) Decubitus ulcers ICD Codes: L89.90 - Pressure ulcer of unspecified site, unspecified stage SNOMED: 369803096 Status: stable Status Narrative Discussed with Dr. Cummings Assessment/Plan Colonoscopy canceled, patient did not prep and refused procedure. Patient now agreed to have the colonoscopy performed tomorrow. If the patient does not prep tonight, he is cleared for discharge per GI standpoint. Clear liquid diet, n.p.o. at midnight Hold all blood thinners tonight PRN transfusions PPI Zofran as needed Wound care consult We will follow with additional recommendations post procedure The patient was seen and examined at bedside and all new and available data was reviewed in the patients chart. I agree with the above findings, impression and plan. (Patient seen earlier today. Signature stamp does not reflect patient encounter time.). - Figueroa Cummings MD Subjective Gastrointestinal/Abdominal: Reports: no symptoms Objective Last 24 Hour Vital Signs Date Time Temp Pulse Resp B/P (MAP) Pulse Ox O2 Delivery O2 Flow Rate FiO2 08/16/18 08:00 98.0 80 20 126/80 (95) 98 08/16/18 04:00 97.9 83 19 129/79 (96) 98 08/16/18 00:00 97.9 118 18 119/74 (89) 100 08/15/18 21:00 Room Air 08/15/18 20:00 97.5 116 18 119/76 (90) 100 08/15/18 16:00 98.1 96 18 134/88 (103) 96 Intake and Output 08/15/18 08/16/18 19:00 07:00 Intake Total 480 ml Output Total 1150 ml Balance 480 ml -1150 ml Intake Oral 480 ml Output Urine Total 350 ml Stool Total 800 ml Height (Feet): 5 Height (Inches): 11.00 Weight (Pounds): 148 General Appearance: WD/WN, no apparent distress, alert Cardiovascular: normal rate Respiratory/Chest: normal breath sounds, no respiratory distress Abdominal Exam: normal bowel sounds, non tender, soft, other - Colostomy Extremities: non-tender Neil Haney [employer] Aug 16, 2018 10:37
[2018-08-16 12:00] VITALS: BP 113/74
--- NOTE | 2018-08-16 12:18 | Psych Consult Progress Note ---
Psychiatry Progress Note Psychiatry Progress Note Subjective the pt is irritable and has pain. the pt has depressed mood however refused prozac. the pt is open to Cymbalta. Medications Current Medications Medications (Trade) Dose Ordered Sig/Constantin Route PRN Reason Start Time Stop Time Status Last Admin Dose Admin Acetaminophen (Tylenol) 650 mg Q6H PRN ORAL Mild Pain/Temp > 100.5 08/15/18 02:00 09/14/18 01:59 Ascorbic Acid (Vitamin C) 500 mg DAILY ORAL 08/15/18 09:00 09/14/18 08:59 08/15/18 08:52 Bisacodyl (Dulcolax) 10 mg ONCE ORAL 08/16/18 16:00 08/16/18 17:00 Carisoprodol (Soma) 350 mg Q8H PRN ORAL muscle spasms 08/15/18 08:45 09/14/18 08:44 08/15/18 22:12 Docusate Sodium (Colace) 200 mg BIDPRN PRN ORAL Constipation 08/15/18 08:45 09/14/18 08:44 Duloxetine HCl (Cymbalta) 30 mg DAILY ORAL 08/16/18 12:00 09/15/18 11:59 Heparin Sodium (Porcine) (Heparin 5000 units/ml) 5,000 units EVERY 12 HOURS SUBQ 08/15/18 09:00 09/14/18 08:59 08/15/18 20:26 Magnesium Citrate (Citrate Of Magnesia) 300 ml ONCE ORAL 08/16/18 16:00 08/16/18 23:59 Multivitamins Therapeutic (Therapeutic Multivitamin) 1 ea DAILY ORAL 08/15/18 09:00 09/14/18 08:59 08/15/18 08:52 Oxycodone HCl (OxyCONTIN) 30 mg Q12HR ORAL 08/16/18 10:00 08/23/18 09:59 08/16/18 10:34 Oxycodone HCl (Roxicodone) 5 mg Q3H PRN ORAL Severe Pain (Pain Scale 7-10) 08/15/18 23:45 08/22/18 23:44 Oxycodone HCl (Roxicodone) 5 mg Q4H PRN ORAL Moderate Pain (Pain Scale 4-6) 08/15/18 08:45 08/22/18 08:44 08/16/18 03:20 Polyethylene Glycol (Miralax) 238 gm ONCE ORAL 08/16/18 16:00 08/16/18 23:59 Tizanidine HCl (Zanaflex) 4 mg Q8H PRN ORAL MUSCLE SPASMS 08/15/18 08:45 09/14/18 08:44 Zinc Sulfate (Zinc Sulfate) 220 mg DAILY ORAL 08/15/18 09:00 09/14/18 08:59 08/15/18 08:52 Allergies: Coded Allergies: No Known Allergies (Unverified , 06/30/18) Objective Data Height (Feet): 5 Height (Inches): 11.00 Weight (Pounds): 148 General Appearance: WD/WN, no apparent distress, alert Appearance: well groomed Behavior Mannerisms: good eye contact Mental Status Exam - Affect: blunted Mental Status Exam - Mood: depressed, irritable Mental Status Exam - Thought C: no abnormalities Mental Status Exam - Suicidal: not present Assessment/Plan Problem List: (1) MDD (major depressive disorder), recurrent episode, moderate ICD Codes: F33.1 - Major depressive disorder, recurrent, moderate SNOMED: 55390485, 008473927 (2) Drug abuse ICD Codes: F19.10 - Other psychoactive substance abuse, uncomplicated SNOMED: 20939884 Status: stable Assessment/Plan: dc prozac start cymbalta 30mg po qam ativan prn Frances Killian MD Aug 16, 2018 12:18
[2018-08-16] MEDS: DULoxetine 30mg cap ORAL SCH (12:46)
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
[2018-08-16 16:00] VITALS: BP 118/77
[2018-08-16] MEDS ORDERED: Bisacodyl EC 5mg tab ORAL SCH (16:00)
[2018-08-16] MEDS ORDERED: Polyethylene Glycol 238gm bottle ORAL SCH (16:00)
[2018-08-16] MEDS ORDERED: Magnesium Citrate Liq Btl ORAL SCH (16:00)
[2018-08-16 20:00] VITALS: BP 116/75
[2018-08-16] MEDS: oxyCONTIN 10mg tab ORAL SCH (22:09)
[2018-08-17] VITALS (8 sets, daily range): BP systolic 112–128; BP diastolic 55–80
[2018-08-17] MEDS: oxyCONTIN 10mg tab ORAL SCH ×2 (06:19→14:18)
[2018-08-17] MEDS: DULoxetine 30mg cap ORAL SCH (09:00)
[2018-08-17] MEDS: Ascorbic Acid 500mg tab ORAL SCH (09:00)
[2018-08-17] MEDS: Zinc Sulfate 220mg cap ORAL SCH (09:00)
[2018-08-17] MEDS: Heparin 5000 units/ml inj SUBQ SCH (09:00)
[2018-08-17] MEDS: Multivitamin w/Minerals tab ORAL SCH (09:00)
--- NOTE | 2018-08-17 09:18 | General Progress Note ---
Assessment/Plan Problem List: (1) MDD (major depressive disorder), recurrent episode, moderate ICD Codes: F33.1 - Major depressive disorder, recurrent, moderate SNOMED: 30927362, 896570367 (2) Colonoscopy planned SNOMED: 685677263 (3) Drug abuse ICD Codes: F19.10 - Other psychoactive substance abuse, uncomplicated SNOMED: 06089412 Status: stable Assessment/Plan: plan colonoscopy for today Subjective ROS Limited/Unobtainable: Yes Allergies: Coded Allergies: No Known Allergies (Unverified , 06/30/18) Objective Last 24 Hour Vital Signs Date Time Temp Pulse Resp B/P (MAP) Pulse Ox O2 Delivery O2 Flow Rate FiO2 08/17/18 08:00 98.1 92 18 128/77 (94) 96 08/17/18 06:49 98.0 08/17/18 04:00 98.0 90 19 123/80 (94) 94 08/17/18 00:00 98.3 86 18 112/73 (86) 95 08/16/18 21:00 Room Air 08/16/18 20:00 98.1 94 18 116/75 (89) 97 08/16/18 16:00 98.3 87 20 118/77 (91) 98 08/16/18 12:00 98.0 101 18 113/74 (87) 97 Intake and Output 08/16/18 08/17/18 19:00 07:00 Intake Total 860 ml 720 ml Output Total 300 ml 1600 ml Balance 560 ml -880 ml Intake Oral 860 ml 720 ml Output Urine Total 300 ml Stool Total 1600 ml Height (Feet): 5 Height (Inches): 11.00 Weight (Pounds): 148 General Appearance: alert EENT: normal ENT inspection Neck: supple Cardiovascular: normal rate Respiratory/Chest: lungs clear Abdomen: normal bowel sounds, non tender, soft Extremities: non-tender Figueroa Cummings MD Aug 17, 2018 09:18
[2018-08-17 10:29] LABS: HEMATOCRIT 40.2 % (42.0-52.0); MEAN CORPUSCULAR VOLUME 85 FL (80-99); PLATELET COUNT 413 K/UL (150-450); RED BLOOD COUNT 4.74 M/UL (4.70-6.10); RED CELL DISTRIBUTION WIDTH 13.2 % (11.6-14.8); WHITE BLOOD COUNT 6.4 K/UL (4.8-10.8)
--- NOTE | 2018-08-17 10:33 | Pre-Procedure Note/Attestation ---
Pre-Procedure Note/Attestation Complete Prior to Procedure Planned Procedure: not applicable Procedure Narrative: colonoscopy Indications for Procedure Pre-Operative Diagnosis: anemia Attestation I attest that I discussed the nature of the procedure; its benefits; risks and complications; and alternatives (and the risks and benefits of such alternatives ), prior to the procedure, with the patient (or the patient's legal medical representative). I attest that, if there was a reasonable possibility of needing a blood transfusion, the patient (or the patient's legal medical representative) was given the [facility] standardized written summary, pursuant to the Terrance Suresh Blood Safety Act ([place] Health and Safety Code # 1645, as amended). I attest that I re-evaluated the patient just prior to the surgery and that there has been no change in the patient's H&P, except as documented below: Figueroa Cummings MD Aug 17, 2018 10:33
[2018-08-17 10:38] LABS: ANION GAP 7 mmol/L (5-15); BLOOD UREA NITROGEN 5 mg/dL (7-18); CALCIUM 9.1 MG/DL (8.5-10.1); CARBON DIOXIDE 29 MMOL/L (21-32); CHLORIDE 104 MMOL/L (98-107); CREATININE 0.9 MG/DL (0.55-1.30); POTASSIUM 3.8 MMOL/L (3.5-5.1); SODIUM 140 MMOL/L (136-145)
[2018-08-17] MEDS ORDERED: Propofol 200mg/20ml IV ONE (10:43)
[2018-08-17 10:45] LABS: INR 1.1 (0.9-1.1)
[2018-08-17] MEDS ORDERED: NS 500ML IVPB ONE (10:45)
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
[2018-08-17] MEDS ORDERED: fentaNYL 100 mcg/2 mL IV PRN (11:30)
--- NOTE | 2018-08-17 11:32 | Endoscopy Procedure Note ---
Endoscopy Procedure Note General Indication for Procedure: abd pain Procedures Performed: colonoscopy Operative Findings/Diagnosis: large colon polyp Specimen: yes Pt Tolerated Procedure Well: Yes Estimated Blood Loss: none Anesthesia Anesthesiologist: sudeep Anesthesia: MAC Inserted Devices Implant(s) used?: No Quality Quality of Bowel Preparation: Good Did scope reach the cecum?: Yes Was there any complications?: No GI Core Measures 50 yrs or older w/o bx or poly: Not Applicable 10yrs. F/U not recommended: Not Applicable Figueroa Cummings MD Aug 17, 2018 11:32
--- NOTE | 2018-08-17 11:40 | Immediate Post-Op Evaluation ---
Immediate Post-Op Evalulation Immediate Post-Op Evalulation Procedure: Colonoscopy Bx of R colon mass Date of Evaluation: Aug 17, 2018 Time of Evaluation: 11:39 IV Fluids: 300 Blood Products: none Estimated Blood Loss: none Urinary Output: none Blood Pressure Systolic: 115 Blood Pressure Diastolic: 56 Pulse Rate: 72 Respiratory Rate: 20 O2 Sat by Pulse Oximetry: 98 Temperature (Fahrenheit): 97.5 Pain Score (1-10): 1 Nausea: No Vomiting: No Complications none Patient Status: awake, patent, none Toney Villarreal MD Aug 17, 2018 11:40
--- NOTE | 2018-08-17 12:16 | 48 Hour Post Anesthesia Eval ---
Post Anesthesia Evaluation Procedure: Colonoscopy Bx of R colon mass Date of Evaluation: Aug 17, 2018 Time of Evaluation: 12:15 Blood Pressure Systolic: 116 0: 55 Pulse Rate: 64 Respiratory Rate: 20 Temperature (Fahrenheit): 97.8 O2 Sat by Pulse Oximetry: 98 Airway: patent Nausea: No Vomiting: No Pain Intensity: 1 Hydration Status: adequate Cardiopulmonary Status: stable Mental Status/LOC: patient returned to baseline Follow-up Care/Observations: n/a Post-Anesthesia Complications: none Follow-up care needed: N/A Toney Villarreal MD Aug 17, 2018 12:16
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
--- NOTE | 2018-08-17 13:00 | Surgery Progress Note ---
Surgery Progress Note Subjective Additional Comments no acute events. colonoscopy today. exam unchanged. dressings going well labs okay Objective Last 24 Hour Vital Signs Date Time Temp Pulse Resp B/P (MAP) Pulse Ox O2 Delivery O2 Flow Rate FiO2 08/17/18 12:16 64 20 98 08/17/18 11:58 97.6 77 16 115/71 98 Room Air 08/17/18 11:50 81 17 122/73 98 Room Air 08/17/18 11:45 79 15 119/74 96 Room Air 08/17/18 11:41 97.0 72 20 115/77 100 Room Air 08/17/18 11:40 72 20 98 08/17/18 09:00 Room Air 08/17/18 08:00 98.1 92 18 128/77 (94) 96 08/17/18 06:49 98.0 08/17/18 04:00 98.0 90 19 123/80 (94) 94 08/17/18 00:00 98.3 86 18 112/73 (86) 95 08/16/18 21:00 Room Air 08/16/18 20:00 98.1 94 18 116/75 (89) 97 08/16/18 16:00 98.3 87 20 118/77 (91) 98 I&O Intake and Output 08/16/18 08/17/18 19:00 07:00 Intake Total 860 ml 720 ml Output Total 300 ml 1600 ml Balance 560 ml -880 ml Intake Oral 860 ml 720 ml Output Urine Total 300 ml Stool Total 1600 ml Dressing: saturated Wound: clean Drains: none Cardiovascular: RSR Respiratory: clear Abdomen: soft, present bowel sounds Extremities: no tenderness, no cyanosis Laboratory Tests Test 08/17/18 10:10 White Blood Count 6.4 K/UL (4.8-10.8) Red Blood Count 4.74 M/UL (4.70-6.10) Hemoglobin 13.0 G/DL (14.2-18.0) L Hematocrit 40.2 % (42.0-52.0) L Mean Corpuscular Volume 85 FL (80-99) Mean Corpuscular Hemoglobin 27.4 PG (27.0-31.0) Mean Corpuscular Hemoglobin Concent 32.4 G/DL (32.0-36.0) Red Cell Distribution Width 13.2 % (11.6-14.8) Platelet Count 413 K/UL (150-450) Mean Platelet Volume 5.1 FL (6.5-10.1) L Neutrophils (%) (Auto) % (45.0-75.0) Lymphocytes (%) (Auto) % (20.0-45.0) Monocytes (%) (Auto) % (1.0-10.0) Eosinophils (%) (Auto) % (0.0-3.0) Basophils (%) (Auto) % (0.0-2.0) Differential Total Cells Counted 100 Neutrophils % (Manual) 34 % (45-75) L Lymphocytes % (Manual) 63 % (20-45) H Monocytes % (Manual) 2 % (1-10) Eosinophils % (Manual) 1 % (0-3) Basophils % (Manual) 0 % (0-2) Band Neutrophils 0 % (0-8) Platelet Estimate Adequate Platelet Morphology Normal Red Blood Cell Morphology Normal Prothrombin Time 11.4 SEC (9.30-11.50) Prothromb Time International Ratio 1.1 (0.9-1.1) Activated Partial Thromboplast Time 31 SEC (23-33) Sodium Level 140 MMOL/L (136-145) Potassium Level 3.8 MMOL/L (3.5-5.1) Chloride Level 104 MMOL/L (98-107) Carbon Dioxide Level 29 MMOL/L (21-32) Anion Gap 7 mmol/L (5-15) Blood Urea Nitrogen 5 mg/dL (7-18) L Creatinine 0.9 MG/DL (0.55-1.30) Estimat Glomerular Filtration Rate > 60 mL/min (>60) Glucose Level 90 MG/DL (74-106) Calcium Level 9.1 MG/DL (8.5-10.1) Plan Problems: (1) Behavioral change (2) Decubitus ulcers Assessment & Plan: Patient presented with stage 3 left ischial decubitus ulcer which has had prior skin grafting with minimal take. patient unsure if graft and states possible flap prior but no flap incision noted. does have donor site on left thigh which is healing. wound bed with granulation tissue. has been receiving care at outside facility with honey gel and dressings. will continue treatment plan as well. Tx Plan: wash ischial wound daily with NS, apply therahoney gel followed by foam dressing daily turn q2h air mattress okay for wheelchair use as desired off load heels with pillow thank you will plan for good wound care while in hospital and can resume outpatient wound care once discharged with AV wound care as he has been doing (3) Drug abuse (4) Colostomy in place (5) Colonoscopy planned (6) For toxicology of urine and eval for colonoscopy (7) MDD (major depressive disorder), recurrent episode, moderate Gaston Farah Aug 17, 2018 13:00
[2018-08-17] MEDS ORDERED: Midazolam 2mg/2ml Inj ONE (16:26)
[2018-08-17] MEDS ORDERED: fentaNYL 100 mcg/2 mL IV ONE (16:26)
--- NOTE | 2018-08-17 19:00 | Procedure Note ---
DATE OF PROCEDURE: 08/17/2018 SURGEON: Figueroa Cummings M.D. REFERRING PHYSICIAN: Marii Lester M.D. PROCEDURE: Colonoscopy with biopsy and tattoo. ANESTHESIA: Per Dr. Villarreal. INSTRUMENT: Olympus adult flexible colonoscope. INDICATION: Screening colonoscopy over age 50. REASON FOR PROCEDURE: The procedure, risks, benefits, and possible consequences, including hemorrhage, aspiration, perforation and infection, and alternative treatments, were explained to the patient/legal guardian by Dr. Figueroa Cummings and the patient/legal guardian understood and accepted these risks. PROCEDURE IN DETAIL: After informed consent was obtained and the patient was adequately sedated, Olympus scope was advanced from rectum into the diverting colon part. There was a lot of stool, so this was limited and after to about 25 centimeter in the rectum we had to pulled the scope out because the prep was not good. Then, we introduced the scope through the colostomy and all the way to the cecum documented by appendical orifice, ileocecal valve, and right upper quadrant palpation. Quality of prep was good. The patient had a very large polyp in the proximal ascending colon right at the opening of the cecum. So starting at the proximal ascending colon expanding to about at least 5 centimeter, this polyp looks villous adenomatous. I doubt this is going to be able to be resected endoscopically. We tattooed the area. We biopsied and also we tattooed for possible future surgeries. The patient had some scattered diverticulosis. At this time, the scope was removed and the procedure was terminated. SUMMARY OF FINDINGS: 1. Very large polyp in the proximal ascending colon roughly about 5 cm, status post biopsy and tattoo. 2. Diverticulosis. RECOMMENDATIONS: Discussed with the primary team, the patient most probably will need a colonic resection, right hemicolectomy when the biopsies are back. So, the patient most probably [facility] and brought as an outpatient for this procedure if he consents for it. The patient refuses to have surgery, then we will recommend repeat colonoscopy and attempt to at least to debulk this polyp in a few colonoscopy sessions and try to remove it piece by piece. I want to thank Dr. Lester for this kind referral. Figueroa Janelle Cummings DR: TITA JOB#: [id number] CC:
--- NOTE | 2018-08-17 21:51 | Psych Consult Progress Note ---
Psychiatry Progress Note Psychiatry Progress Note Neurological/Psychiatric: Reports: anxiety, depressed, emotional problems Allergies: Coded Allergies: No Known Allergies (Unverified , 06/30/18) Objective Data Height (Feet): 5 Height (Inches): 11.00 Weight (Pounds): 148 General Appearance: alert, agitated, alert oriented x3 Appearance: no abnormalities noted Behavior Mannerisms: good eye contact Mental Status Exam - Affect: blunted Mental Status Exam - Mood: depressed, irritable, anxious Speech: clear Mental Status Exam - Thought P: no abnormalities Mental Status Exam - Suicidal: not present Assessment/Plan Problem List: (1) MDD (major depressive disorder), recurrent episode, moderate ICD Codes: F33.1 - Major depressive disorder, recurrent, moderate SNOMED: 91814803, 172979418 (2) Drug abuse ICD Codes: F19.10 - Other psychoactive substance abuse, uncomplicated SNOMED: 84962727 Status: stable Assessment/Plan: dc prozac start cymbalta 30mg po qam ativan Frances Bauer MD Aug 17, 2018 21:51
[2019-02-01] MEDS ORDERED: CARISOPRODOL350 MG ORAL (00:02)
[2019-02-01] MEDS ORDERED: CYMBALTA30 MG ORAL (00:02)
[2019-02-01] MEDS ORDERED: ASPIR 8181 MG ORAL (00:02)
[2019-02-01] MEDS ORDERED: CYCLOBENZAPRINE10 MG ORAL (00:02)
[2019-02-01] MEDS ORDERED: LACTULOSE20 GM/301 ORAL (00:02)
[2019-02-01] MEDS ORDERED: FERROUS SULFAT325 MG ORAL (00:02)
[2019-02-01] MEDS ORDERED: TIZANIDINE HCL4 MG ORAL (00:02)
[2019-02-01] MEDS ORDERED: PROSTATE PQ TA1 EACH PO (00:02)
== END 2018-08-17 16:27 | DRG 391 ==
LOC: EDBD 19:45 → EDBEDREQ 21:55 → EMR 22:45 → 4E 22:49 → EDBEDREQ 23:27
PROC: 0DBK8ZX Excision of Ascending Colon, Via Natural or Artificial Opening Endoscopic, Diagnostic (ICD-10-PCS; principal; 2018-08-17 11:02)
DX: R10.9 Unspecified abdominal pain (principal); L89.323 Pressure ulcer of left buttock, stage 3; G82.20 Paraplegia, unspecified; F33.1 Major depressive disorder, recurrent, moderate; R45.1 Restlessness and agitation; V03.10XS Pedestrian on foot injured in collision with car, pick-up truck or van in traffic accident, sequela; K59.09 Other constipation; V89.2XXS Person injured in unspecified motor-vehicle accident, traffic, sequela; G89.29 Other chronic pain; L89.90 Pressure ulcer of unspecified site, unspecified stage; Z99.3 Dependence on wheelchair; R33.9 Retention of urine, unspecified; Z93.3 Colostomy status; F19.10 Other psychoactive substance abuse, uncomplicated; K57.90 Diverticulosis of intestine, part unspecified, without perforation or abscess without bleeding
CPT/HCPCS: 36415; 45381; 71045; 80048; 80053; 80307; 80329; 81003; 85007; 85025; 85610; 85730; 87081; 94003; 94150; 96361; 96374; 96375; 99284; 99285; J2250

== ENCOUNTER 2018-09-17 15:28 | Inpatient (IN) | payer MEDICARE, MEDICAID ==
[~2018-09-17] VITALS: Ht 172.7 cm; Wt 86.2 kg
[~2018-09-17 15:28] MED LIST changes: +CARISOPRODOL350 MG ORAL; +OXYCONTIN10 MG ORAL; +ROXICODONE5 MG ORAL; +VITAMIN C500 M1 ORAL; +ZINC SULFATE220 M1 ORAL
[2018-09-17] MEDS ORDERED: HEPARIN SO5000 UNIT2 SUBQ (15:45)
[2018-09-17] MEDS ORDERED: PRO-STAT LIQUID30 ML ORAL (15:46)
[2018-09-17] MEDS ORDERED: NORCO 5-325 TA1 EACH ORAL (15:46)
[2018-09-17] MEDS ORDERED: MOVANTIK25 MG PO (15:46)
[2018-09-17] MEDS ORDERED: CYMBALTA30 MG ORAL (15:47)
[2018-09-17] MEDS ORDERED: Piperacillin/Tazobactam 3.375 GM in NS 110 ML IVPB ONE (16:00)
[2018-09-17] MEDS ORDERED: Morphine Sulfate 4mg/ml Inj (IV USE ONLY) IVP ONE (16:00)
--- NOTE | 2018-09-17 16:00 | NUR ---
ED Nurse Note: Patient brought in by ambulnace from senior care due to infected decubitus ulcer on the left hip. Patient awake, alert, oriented x4. Able to answer questions. c/o pain in the affected area. Reports no fever or chills. Removed dressing and open wound with brown wound base and redness on the edge of the wound noted. Faint brown, yellow drainage and foul odor noted. Per patient, patien has this wound for the past 8 months. Applied wet to dry dressing as ordered. Patient tolerated the procedure without difficutly. Reports no other wound. Healed wounds on bilateral heels noted. Patient arrived here f/c and it was changed 2 days ago per patient. Supported bony area with multiple pillows and placed patient on cardiac moniotor. No ectopy noted. Bed in lowest position.
[2018-09-17 16:06] VITALS: BP 95/45
--- NOTE | 2018-09-17 16:12 | NUR ---
ED Nurse Note: Spoke to jose Carballo for blood draw.
--- NOTE | 2018-09-17 16:36 | NUR ---
ED Nurse Note: police crime scene technician here attempting collecting blood samples.
--- NOTE | 2018-09-17 16:45 | NUR ---
ED Nurse Note: RN attempted to insert IV x 1 this time. ERMD notified and aware.
[2018-09-17 16:57] LABS: APPEARANCE,URINE CLEAR; BILIRUBIN, URINE NEGATIVE (NEGATIVE); COLOR,URINE BROWN; GLUCOSE, URINE (UA) NEGATIVE (NEGATIVE); KETONES,URINE 1+ (NEGATIVE); LEUKOCYTE ESTERASE ,URINE 3+ (NEGATIVE); NITRITE,URINE POSITIVE (NEGATIVE); PH,URINE 6.5 (4.5-8.0); PROTEIN,URINE 2+ (NEGATIVE); UROBILINOGEN,URINE 8 MG/DL (0.0-1.0)
--- NOTE | 2018-09-17 17:10 | NUR ---
ED Nurse Note: Haris cleaner laboratory equipment at bedside and drawing blood sample.
[2018-09-17] MEDS ORDERED: HYDROmorphone 1mg/ml Carpuject IM ONE (17:30)
[2018-09-17] MEDS ORDERED: oxyCONTIN 10mg tab ORAL PRN (17:30)
[2018-09-17] MEDS ORDERED: HYDROcodone/Acetamin 5/325 tab ORAL PRN (17:30)
[2018-09-17 17:38] LABS: BASOPHILS % (AUTO) 1.9 % (0.0-2.0); EOSINOPHILS % (AUTO) 2.8 % (0.0-3.0); HEMATOCRIT 34.2 % (42.0-52.0); HEMOGLOBIN 11.5 G/DL (14.2-18.0); LYMPHOCYTES % (AUTO) 25.2 % (20.0-45.0); MEAN CORPUSCULAR VOLUME 80 FL (80-99); MONOCYTES % (AUTO) 9.2 % (1.0-10.0); PLATELET COUNT 580 K/UL (150-450); RED CELL DISTRIBUTION WIDTH 12.1 % (11.6-14.8); WHITE BLOOD COUNT 15.2 K/UL (4.8-10.8)
[2018-09-17 17:39] LABS: INR 1.1 (0.9-1.1)
[2018-09-17] MEDS ORDERED: Milk of Magnesia 30ml Ud ORAL PRN (17:42)
[2018-09-17] MEDS ORDERED: Docusate 100mg cap ORAL PRN (17:42)
[2018-09-17] MEDS ORDERED: LORazepam 1mg tab ORAL PRN (17:43)
[2018-09-17 17:44] LABS: ANION GAP 8 mmol/L (5-15); BLOOD UREA NITROGEN 9 mg/dL (7-18); CALCIUM 9.1 MG/DL (8.5-10.1); CARBON DIOXIDE 26 MMOL/L (21-32); CHLORIDE 100 MMOL/L (98-107); CREATININE 0.8 MG/DL (0.55-1.30); POTASSIUM 4.1 MMOL/L (3.5-5.1); SODIUM 134 MMOL/L (136-145)
[2018-09-17] MEDS ORDERED: oxyCODONE 5mg IR tab ORAL PRN ×2 (17:47→20:15)
--- NOTE | 2018-09-17 17:47 | Infectious Diseases Prog Note ---
Assessment/Plan Assessment/Plan Full consult dictated: left hip/ischium infected wound, r/o osteomyelitis uti pmh noted allergies - morphine, no antibiotic allergies zosyn and vancomycin surgery evaluation, ? debridement f/u on cultures left hip x-ray thank you Subjective Allergies: Coded Allergies: MORPHINE (Verified Allergy, Unknown, 09/17/18) Objective Vital Signs Last 24 Hour Vital Signs Date Time Temp Pulse Resp B/P (MAP) Pulse Ox O2 Delivery O2 Flow Rate FiO2 09/17/18 16:06 97.6 92 19 95/45 95 Room Air 09/17/18 16:06 92 19 Room Air 09/17/18 15:31 97.9 86 18 118/75 (89) 98 Room Air Height (Feet): 5 Height (Inches): 8.00 Weight (Pounds): 165 Laboratory Tests Test 09/17/18 16:25 09/17/18 17:05 Urine Color Brown Urine Appearance Clear Urine pH 6.5 (4.5-8.0) Urine Specific [place] 1.010 (1.005-1.035) Urine Protein 2+ (NEGATIVE) H Urine Glucose (UA) Negative (NEGATIVE) Urine Ketones 1+ (NEGATIVE) H Urine Blood 5+ (NEGATIVE) H Urine Nitrite Positive (NEGATIVE) H Urine Bilirubin Negative (NEGATIVE) Urine Urobilinogen 8 MG/DL (0.0-1.0) H Urine Leukocyte Esterase 3+ (NEGATIVE) H Urine RBC 15-20 /HPF (0 - 0) H Urine WBC 10-15 /HPF (0 - 0) H Urine Squamous Epithelial Cells Few /LPF (NONE/OCC) Urine Amorphous Sediment Few /LPF (NONE) H Urine Bacteria Moderate /HPF (NONE) H White Blood Count 15.2 K/UL (4.8-10.8) H Red Blood Count 4.30 M/UL (4.70-6.10) L Hemoglobin 11.5 G/DL (14.2-18.0) L Hematocrit 34.2 % (42.0-52.0) L Mean Corpuscular Volume 80 FL (80-99) Mean Corpuscular Hemoglobin 26.7 PG (27.0-31.0) L Mean Corpuscular Hemoglobin Concent 33.5 G/DL (32.0-36.0) Red Cell Distribution Width 12.1 % (11.6-14.8) Platelet Count 580 K/UL (150-450) H Mean Platelet Volume 4.1 FL (6.5-10.1) L Neutrophils (%) (Auto) 61.0 % (45.0-75.0) Lymphocytes (%) (Auto) 25.2 % (20.0-45.0) Monocytes (%) (Auto) 9.2 % (1.0-10.0) Eosinophils (%) (Auto) 2.8 % (0.0-3.0) Basophils (%) (Auto) 1.9 % (0.0-2.0) Prothrombin Time 11.6 SEC (9.30-11.50) H Prothromb Time International Ratio 1.1 (0.9-1.1) Activated Partial Thromboplast Time 34 SEC (23-33) H Sodium Level Pending Potassium Level Pending Chloride Level Pending Carbon Dioxide Level Pending Blood Urea Nitrogen Pending Creatinine Pending Estimat Glomerular Filtration Rate Pending Glucose Level Pending Lactic Acid Level Pending Calcium Level Pending Total Bilirubin Pending Aspartate Amino Transf (AST/SGOT) Pending Alanine Aminotransferase (ALT/SGPT) Pending Alkaline Phosphatase Pending Total Protein Pending Albumin Pending Globulin Pending Current Medications Medications (Trade) Dose Ordered Sig/Constantin Route PRN Reason Start Time Stop Time Status Last Admin Dose Admin Acetaminophen (Tylenol) 650 mg Q4H PRN ORAL fever 09/17/18 17:30 10/17/18 17:29 UNV Acetaminophen (Tylenol) 650 mg Q6H PRN ORAL Mild Pain/Temp > 100.5 09/17/18 17:30 10/17/18 17:29 UNV Acetaminophen/ Hydrocodone Bitart ([place] 5/325) 1 tab Q6H PRN ORAL For Pain 09/17/18 17:30 09/24/18 17:29 UNV Ascorbic Acid (Vitamin C) 500 mg DAILY ORAL 09/18/18 09:00 10/18/18 08:59 Carisoprodol (Soma) 350 mg Q8H PRN ORAL muscle spasms 09/17/18 17:30 10/17/18 17:29 UNV Dextrose (Dextrose 50%) 25 ml Q30M PRN IV Hypoglycemia 09/17/18 17:30 10/17/18 17:29 Dextrose (Dextrose 50%) 50 ml Q30M PRN IV Hypoglycemia 09/17/18 17:30 10/17/18 17:29 Diphenhydramine HCl (Benadryl) 25 mg Q6H PRN ORAL Itching/Pruritis 09/17/18 17:43 10/17/18 17:42 Docusate Sodium (Colace) 200 mg BID PRN ORAL Constipation 09/17/18 17:42 10/17/18 17:41 Duloxetine HCl (Cymbalta) 30 mg DAILY ORAL 09/18/18 09:00 10/18/18 08:59 UNV Heparin Sodium (Porcine) (Heparin 5000 units/ml) 5,000 units EVERY 12 HOURS SUBQ 09/17/18 21:00 10/17/18 20:59 UNV Heparin Sodium (Porcine) (Heparin 5000 units/ml) 5,000 units EVERY 12 HOURS SUBQ 09/17/18 21:00 10/17/18 20:59 UNV Lactulose (Cephulac) 20 gm DAILY ORAL 09/18/18 09:00 10/18/18 08:59 UNV Lorazepam (Ativan) 1 mg Q4H PRN ORAL For Anxiety 09/17/18 17:43 09/24/18 17:42 Magnesium Hydroxide (Mom) 30 ml DAILY PRN ORAL Constipation 09/17/18 17:42 10/17/18 17:41 Multivitamins Therapeutic (Therapeutic Multivitamin) 1 ea DAILY ORAL 09/18/18 09:00 10/18/18 08:59 Naloxegol (Movantik) 25 mg DAILY ORAL 09/18/18 09:00 10/18/18 08:59 UNV Ondansetron HCl (Zofran) 4 mg Q6H PRN IVP Nausea & Vomiting 09/17/18 17:43 10/17/18 17:42 Oxycodone HCl (OxyCONTIN) 30 mg EVERY 12 HOURS PRN ORAL Chronic pain syndrome 09/17/18 17:30 09/24/18 17:29 UNV Oxycodone HCl (Roxicodone) 5 mg Q4H PRN ORAL Moderate Pain (Pain Scale 4-6) 09/17/18 17:30 09/24/18 17:29 UNV Tizanidine HCl (Zanaflex) 8 mg Q8HR PRN ORAL MUSCLE SPASMS 09/17/18 17:30 10/17/18 17:29 UNV Zinc Sulfate (Zinc Sulfate) 220 mg DAILY ORAL 09/18/18 09:00 10/18/18 08:59 Marjorie Fulton MD September 17, 2018 17:47
[2018-09-17 17:49] LABS: ALANINE AMINOTRANSFERASE 11 U/L (12-78); ALBUMIN 1.8 G/DL (3.4-5.0); ALBUMIN/GLOBULIN RATIO 0.2 (1.0-2.7); ALKALINE PHOSPHATASE 203 U/L (46-116); ASPARTATE AMINO TRANSFERASE 18 U/L (15-37); BILIRUBIN,TOTAL 0.3 MG/DL (0.2-1.0)
[2018-09-17] MEDS ORDERED: HYDROmorphone 1mg/ml Carpuject IVP ONE ×2 (18:00→18:15)
[2018-09-17] MEDS ORDERED: HYDROmorphone 1mg/ml Carpuject IVP SCH (18:00)
[2018-09-17] MEDS ORDERED: Hydromorphone 0.5mg/0.5ml inj IVP ONE (18:00)
--- NOTE | 2018-09-17 18:22 | Emergency Room Report ---
History of Present Illness General Chief Complaint: General Complaint Source: Patient, Medical Record Present Illness HPI 53-year-old male presents ED for evaluation. Brought in by EMS from half-way facility. Complaining of pain to his back. States that he has a ulcer on his lower back. Has been there for months. Currently being treated but states pain is getting worse. Pain is 10 out of 10, sharp, nonradiating. Patient is paraplegic. Denies fevers or chills. No other aggravating relieving factors. Denies any other associated symptoms Allergies: Coded Allergies: MORPHINE (Verified Allergy, Unknown, 09/17/18) Patient History Past Medical History: other - paraplegic Past Surgical History: none Pertinent Family History: none Social History: Denies: smoking, alcohol use, drug use Immunizations: UTD Reviewed Nursing Documentation: PMH: Agreed; PSxH: Agreed Nursing Documentation-PMH Hx Cardiac Problems: No Hx Hypertension: Yes Hx Cancer: No Hx Neurological Problems: Yes - paraplegia waist down Hx Neurologic Surgery: Yes - spine surgery Review of Systems All Other Systems: negative except mentioned in HPI Physical Exam Vital Signs Date Time Temp Pulse Resp B/P (MAP) Pulse Ox O2 Delivery O2 Flow Rate FiO2 09/17/18 15:31 97.9 86 18 118/75 (89) 98 Room Air Sp02 EP Interpretation: reviewed, normal General Appearance: no apparent distress, alert, GCS 15, non-toxic Head: normocephalic Eyes: bilateral eye normal inspection, bilateral eye PERRL ENT: normal ENT inspection Neck: normal inspection Respiratory: normal inspection Cardiovascular #1: normal inspection Gastrointestinal: normal bowel sounds, non tender, soft, non-distended, no guarding, no rebound Rectal: deferred Genitourinary: no CVA tenderness Musculoskeletal: normal inspection Neurologic: alert, oriented x3, responsive, motor strength/tone normal, sensory intact, speech normal Psychiatric: normal inspection Skin: other - large decubitus unstaged ulcer to ischium Lymphatic: normal inspection Medical Decision Making Diagnostic Impression: Primary Impression: Decubitus ulcers Qualified Codes: L89.140 - Pressure ulcer of left lower back, unstageable Additional Impression: UTI (urinary tract infection) Qualified Codes: N39.0 - Urinary tract infection, site not specified ER Course Hospital Course 53-year-old male presents to ED with pain to lower back. h/o decubitus ulcer Differential diagnoses include: Cellulitis, osteomyelitis, sepsis Clinical course Patient placed on stretcher. After initial history and physical I ordered labs , blood Cx, UA, IVFs, pain meds, wound culture labs reviewed - leukocytosis, Hb/Hct stable, no electrolyte abnormalities, lactic ok, UA + bacteria Patient is difficult IV access. I placed peripheral EJ line antibiotics given. Case discussed with Dr Hardy and he agreed to accept the patient to his service for further care and support Diagnosis - decubitus ulcer, UTI Patient admitted to floor in serious condition Labs Test 09/17/18 16:25 09/17/18 17:05 Urine Color Brown Urine Appearance Clear Urine pH 6.5 (4.5-8.0) Urine Specific [place] 1.010 (1.005-1.035) Urine Protein 2+ (NEGATIVE) Urine Glucose (UA) Negative (NEGATIVE) Urine Ketones 1+ (NEGATIVE) Urine Blood 5+ (NEGATIVE) Urine Nitrite Positive (NEGATIVE) Urine Bilirubin Negative (NEGATIVE) Urine Urobilinogen 8 MG/DL (0.0-1.0) Urine Leukocyte Esterase 3+ (NEGATIVE) Urine RBC 15-20 /HPF (0 - 0) Urine WBC 10-15 /HPF (0 - 0) Urine Squamous Epithelial Cells Few /LPF (NONE/OCC) Urine Amorphous Sediment Few /LPF (NONE) Urine Bacteria Moderate /HPF (NONE) White Blood Count 15.2 K/UL (4.8-10.8) Red Blood Count 4.30 M/UL (4.70-6.10) Hemoglobin 11.5 G/DL (14.2-18.0) Hematocrit 34.2 % (42.0-52.0) Mean Corpuscular Volume 80 FL (80-99) Mean Corpuscular Hemoglobin 26.7 PG (27.0-31.0) Mean Corpuscular Hemoglobin Concent 33.5 G/DL (32.0-36.0) Red Cell Distribution Width 12.1 % (11.6-14.8) Platelet Count 580 K/UL (150-450) Mean Platelet Volume 4.1 FL (6.5-10.1) Neutrophils (%) (Auto) 61.0 % (45.0-75.0) Lymphocytes (%) (Auto) 25.2 % (20.0-45.0) Monocytes (%) (Auto) 9.2 % (1.0-10.0) Eosinophils (%) (Auto) 2.8 % (0.0-3.0) Basophils (%) (Auto) 1.9 % (0.0-2.0) Prothrombin Time 11.6 SEC (9.30-11.50) Prothromb Time International Ratio 1.1 (0.9-1.1) Activated Partial Thromboplast Time 34 SEC (23-33) Sodium Level 134 MMOL/L (136-145) Potassium Level 4.1 MMOL/L (3.5-5.1) Chloride Level 100 MMOL/L (98-107) Carbon Dioxide Level 26 MMOL/L (21-32) Anion Gap 8 mmol/L (5-15) Blood Urea Nitrogen 9 mg/dL (7-18) Creatinine 0.8 MG/DL (0.55-1.30) Estimat Glomerular Filtration Rate > 60 mL/min (>60) Glucose Level 99 MG/DL (74-106) Lactic Acid Level 1.20 mmol/L (0.4-2.0) Calcium Level 9.1 MG/DL (8.5-10.1) Total Bilirubin 0.3 MG/DL (0.2-1.0) Aspartate Amino Transf (AST/SGOT) 18 U/L (15-37) Alanine Aminotransferase (ALT/SGPT) 11 U/L (12-78) Alkaline Phosphatase 203 U/L (46-116) Total Protein 9.0 G/DL (6.4-8.2) Albumin 1.8 G/DL (3.4-5.0) Globulin 7.2 g/dL Albumin/Globulin Ratio 0.2 (1.0-2.7) Last Vital Signs Date Time Temp Pulse Resp B/P (MAP) Pulse Ox O2 Delivery O2 Flow Rate FiO2 09/17/18 16:06 97.6 92 19 95/45 95 Room Air Status: improved Disposition: ADMITTED INPATIENT Condition: Serious Referrals: Marii Lester MD (PCP) Jonathon Mathew MD September 17, 2018 18:22
--- NOTE | 2018-09-17 18:30 | NUR ---
ED Nurse Note: Repositioned patient. Provided meal tray. Bed in lowest position.
[2018-09-17 18:55] VITALS: BP 114/71
--- NOTE | 2018-09-17 19:02 | NUR ---
ED Nurse Note: received report from Charlie Shaffer and [facility] care, pt provided w/ extra blanket for comfort, vss, Dr. Farah at the bedside for consultation. per order,start npo midnight.
--- NOTE | 2018-09-17 19:02 | NUR ---
ED Nurse Note: Report given to ADRIANNA Smith. Patient resting in bed. Bed in lowest position.
--- NOTE | 2018-09-17 19:35 | General Progress Note ---
Advance Care Planning Advance Care Planning Advance Care Planning [facility] An independent Hospitalist group, where every patient is our [facility] Internal Medicine and Hospitalist Overnight Note Please contact us at Please text me on Voalte from 8a-6p regarding any patient questions From 6p-8a please call [phone] Case discussed with ED Physician. Chart, labs, imaging, vitals and other flowsheets reviewed. Patient presents with infected pressure ulcer Plan overnight will be IV antibiotics Consults called are ID and Surgery Full admission orders completed. Full and complete H+P to follow Signed: Serjio Palomares MD [facility] Pager: [phone] 09/17/2018 7:33 PM Serjio Esaton MD September 17, 2018 19:35
[2018-09-17 19:45] VITALS: BP 106/86
[2018-09-17] MEDS ORDERED: VITAMIN C500 M1 ORAL (19:49)
[2018-09-17] MEDS ORDERED: OXYCONTIN10 MG ORAL (19:50)
--- NOTE | 2018-09-17 19:56 | NUR ---
ED Nurse Note: report given to ADRIANNA Durant from Ms.
--- NOTE | 2018-09-17 20:04 | NUR ---
ED Nurse Note: PT TRANSFERRED TO [facility], ALL BELONGINGS SENT W/ PT W/ COMPLETED BELONGING LIST VIA DIRECTOR DISTRIBUTION, VSS, RESP EVEN AND UNLABORED RA, BERUMEN INTACT, IV INTACT.
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
--- NOTE | 2018-09-17 20:14 | Pre-Procedure Note/Attestation ---
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 I attest that, if there was a reasonable possibility of needing a blood transfusion, the patient (or the patient's legal automotive leasing sales representative) was given the [facility] standardized written summary, pursuant to the Terrance Suresh Blood Safety Act ([place] Health and Safety Code # 1645, as amended). I attest that I re-evaluated the patient just prior to the surgery and that there has been no change in the patient's H&P, except as documented below: Gaston Farah September 17, 2018 20:14
[2018-09-17 20:30] VITALS: BP 114/73
--- NOTE | 2018-09-17 20:30 | NUR ---
NURSE NOTES: Patient admitted from ER for infected decubitus. Patient is parapalegic waist down, BLE contracted. Kelley catheter and colostomy noted. R EJ IV noted, patent. Left ischial wound noted. Multiple healing scabs noted on bilateral feet and heels, left reyna, and left knee. Patient is oriented to new room and unit. Call light provided, instructed to call for assistance, verbalized understanding. Will continue plan of care.
[2018-09-17] MEDS: Heparin 5000 units/ml inj SUBQ SCH (21:00)
[2018-09-17] MEDS ORDERED: Heparin 5000 units/ml inj SUBQ SCH (21:00)
[2018-09-17] MEDS: Vancomycin 1.5gm Premix IVPB SCH (21:30)
[2018-09-18] VITALS (11 sets, daily range): BP systolic 103–132; BP diastolic 70–85
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
--- NOTE | 2018-09-18 07:34 | NUR ---
HAND-OFF: Report given to Arcenio Stewart RN.
--- NOTE | 2018-09-18 07:54 | NUR ---
NURSE NOTES: PT AXOX4, CALM, RESTING IN BED. PT EDUCATED ON NPO STATUS BEFORE PROCEDURE TODAY. PT VERBALIZED UNDERSTANDING. RIGHT EJ ASYMPTOMATIC, PATENT AND INTACT. BED IN LOWEST POSITION WITH BEDSIDE RAILS X3 RAISED. IN NO APPARENT DISTRESS AT THIS TIME. CALL LIGHT WITHIN REACH. WILL CONTINUE TO MONITOR.
[2018-09-18] MEDS: DULoxetine 30mg cap ORAL SCH (08:46)
[2018-09-18] MEDS: Vancomycin 1.5gm Premix IVPB SCH ×2 (08:48→19:56)
[2018-09-18] MEDS: Lactulose 20gm/30ml UDC ORAL SCH (08:55)
[2018-09-18] MEDS: Ascorbic Acid 500mg tab ORAL SCH (08:56)
[2018-09-18] MEDS: Multivitamin w/Minerals tab ORAL SCH (08:56)
[2018-09-18] MEDS: Dakin's 0.125% Soln (Quarter Strength) 16oz TOPIC SCH (08:56)
[2018-09-18] MEDS: Heparin 5000 units/ml inj SUBQ SCH ×2 (08:56→20:49)
[2018-09-18] MEDS: Naloxegol Oxalate 25mg tab ORAL SCH (08:56)
[2018-09-18] MEDS: Zinc Sulfate 220mg cap ORAL SCH (08:56)
--- NOTE | 2018-09-18 09:08 | NUR ---
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 UTI VS: BP 95/45, P 92, T 97.8, RR 18, SpO2 98 WBC 15.2, RBC 4.30, H&H 11.5/34.2, Na 134, URINE: Blood 5+, Bacteria- Moderate, Nitrate-Positive IS:NS x1L IV ZOSYN 110ml IVPB DILAUDID 1mg IVP ADMITTED TO MED/SURG DCP: RETURN TO [facility]
--- NOTE | 2018-09-18 09:17 | NUR ---
NURSE NOTES: PT REFUSING LAB DRAW. RN EDUCATED NEED LABS DRAWN BEFORE PROCEDURE. PT GOT VERY IRRITATED AND STATED "THEY'VE BEEN TAKING TOO MUCH OF MY BLOOD! THEY GOT ENOUGH YESTERDAY!". PT REFUSED TO BE REPOSITIONED AT THIS TIME. PT STATES HE CAN REPOSITION SELF AND WILL CALL IF HE NEEDS HELP. WILL CONTINUE TO MONITOR.
--- NOTE | 2018-09-18 09:19 | NUR ---
NURSE NOTES: PER PT, HE IS TAKING ROXICODONE 20MG TWICE A DAY AT [facility]. RN MADE DR DOLAN AWARE AND WILL ONLY ORDER 5MG OF ROXICODONE Q4H PRN.
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
--- NOTE | 2018-09-18 09:59 | General Progress Note ---
Advance Care Planning Advance Care Planning Advance Care Planning [facility] An independent Hospitalist group, where every patient is our [facility] Internal Medicine Hospitalist Advanced Care Planning Note Please contact us at Date of Discussion: A [id number] discussion with the patient regarding the patient's advanced care planning took place during this hospitalization on the above date. The discussion included the explanation and discussion of advance directives and associated forms/documents, as well as the patient's current code status. We also discussed at length the patient's medical conditions (both acute and chronic), general prognosis, treatment options, and goals of care. The following summarizes the discussion: Advance Care Planning/Goals of Care: - Will attempt to fill out an AD and/or POLST with the patient prior to discharge, if not already completed - Continue current evaluation and management of any acute and chronic medical issues - Will continue to support the patient/family - Will continue to discuss both short- and long-term goals of care DPOA-HC/Surrogate Decision Maker: None currently appointed Code Status: Full Code Advanced Care Planning Forms/Documents Completed: Deferred until later encounter/visit A total of 16 minutes was spent on this discussion, including counseling, answering questions, and completing, if any, pertinent advanced care planning forms/documents. Time of note may not reflect time of encounter. Serjio Easton MD September 18, 2018 09:59
--- NOTE | 2018-09-18 10:35 | Diagnostic Imaging Report ---
Indications: Left hip pain Findings: Two views of the left hip were obtained. The study is limited technically. No obvious acute fractures identified. Osteoarthritis with narrowing of the hip joint and moderate hypertrophic osteophyte formation noted. Bones are osteopenic. IMPRESSION: Technically limited exam. No obvious acute injury. Consider repeat or CT
[2018-09-18 10:54] LABS: BASOPHILS % (AUTO) 1.8 % (0.0-2.0); EOSINOPHILS % (AUTO) 3.1 % (0.0-3.0); HEMATOCRIT 38.9 % (42.0-52.0); HEMOGLOBIN 12.3 G/DL (14.2-18.0); LYMPHOCYTES % (AUTO) 29.1 % (20.0-45.0); MEAN CORPUSCULAR VOLUME 83 FL (80-99); MONOCYTES % (AUTO) 7.2 % (1.0-10.0); NEUTROPHILS % (AUTO) 58.9 % (45.0-75.0); PLATELET COUNT 629 K/UL (150-450); RED CELL DISTRIBUTION WIDTH 12.8 % (11.6-14.8); WHITE BLOOD COUNT 9.7 K/UL (4.8-10.8)
[2018-09-18 11:06] LABS: ANION GAP 9 mmol/L (5-15); BLOOD UREA NITROGEN 5 mg/dL (7-18); CALCIUM 9.1 MG/DL (8.5-10.1); CARBON DIOXIDE 28 MMOL/L (21-32); CHLORIDE 103 MMOL/L (98-107); CREATININE 0.9 MG/DL (0.55-1.30); POTASSIUM 4.1 MMOL/L (3.5-5.1); SODIUM 140 MMOL/L (136-145)
[2018-09-18 11:19] LABS: INR 1.1 (0.9-1.1)
--- NOTE | 2018-09-18 12:45 | NUR ---
NURSE NOTES: PT OFF UNIT FOR PROCEDURE. PT LEFT IN STABLE CONDITION.
[2018-09-18] MEDS ORDERED: Midazolam 2mg/2ml Inj ONE (12:53)
[2018-09-18] MEDS ORDERED: fentaNYL 100 mcg/2 mL IV ONE (12:53)
[2018-09-18] MEDS ORDERED: Propofol 200mg/20ml IV ONE (12:56)
[2018-09-18] MEDS ORDERED: Lidocaine 1% 10mg/ml/Epi 0.005mg/ml 30ml vial INJ ONE (12:58)
[2018-09-18] MEDS ORDERED: NeoSporin Gu Irrig 1ml Amp IRRIG ONE (12:58)
[2018-09-18] MEDS ORDERED: Bacitracin 50000 Units Vial ONE (12:58)
[2018-09-18] MEDS ORDERED: NS Irrig 1000ml ONE (13:00)
[2018-09-18] MEDS ORDERED: Sterile Water Irrig 1000ml IRRIG ONE (13:00)
--- NOTE | 2018-09-18 13:34 | Anethesia Preoperative Eval ---
Anesthesia Pre-op PMH/ROS General Date of Evaluation: September 18, 2018 Time of Evaluation: 13:02 Anesthesiologist: Phil ASA Score: ASA 4 Mallampati Score Class I : Soft palate, uvula, fauces, pillars visible Class II: Soft palate, uvula, fauces visible Class III: Soft palate, base of uvula visible Class IV: Only hard plate visible Mallampati Classification: Class II Surgeon: Bell Diagnosis: Gr.4 decubitus ulcer Surgical Procedure: Debridement of decubitus ulcer Anesthesia History: none Family History: no anesthesia problems Allergies: Coded Allergies: MORPHINE (Verified Allergy, Unknown, 09/17/18) Medications: see eMAR Patient NPO?: Yes Past Medical History Cardiovascular: Denies: HTN, CAD, [place], valve dz, arrhythmia, other Pulmonary: Denies: asthma, COPD, MAYDA, other Gastrointestinal/Genitourinary: Reports: GERD, other - diverting colostomy, chronic Folley catheter; Denies: CRI, ESRD Neurologic/Psychiatric: Reports: depression/anxiety Endocrine: Denies: DM, hypothyroidism, steroids, other HEENT: Denies: cataract (L), cataract (R), glaucoma, MARSHALL (L), MARSHALL (R), other Hematology/Immune: Reports: anemia - mild; Denies: DVT, bleeding disorder, other Musculoskeletal/Integumentary: Reports: other - severe muscle contraction; Denies: OA, RA, DJD, DDD, edema PMH Narrative: as above, paraplegia past spinal cord injury PSxH Narrative: see H&P Anesthesia Pre-op Phys. Exam Physician Exam Last Vital Signs Date Time Temp Pulse Resp B/P (MAP) Pulse Ox O2 Delivery O2 Flow Rate FiO2 09/18/18 12:00 98.0 89 14 125/85 (98) 97 09/18/18 09:00 Room Air Constitutional: NAD Neurologic: CN 2-12 intact Cardiovascular: RRR, no M/R/G Respiratory: CTA Gastrointestinal: S/NT/ND Airway Exam Mallampati Score: Class II MO: limited Neck: flexible ROM: limited Teeth: missing Dentures: no upper, no lower Anesthesia Pre-op A/P Labs Hematology Test 09/17/18 17:05 09/18/18 10:00 White Blood Count 15.2 K/UL (4.8-10.8) H 9.7 K/UL (4.8-10.8) Red Blood Count 4.30 M/UL (4.70-6.10) L 4.70 M/UL (4.70-6.10) Hemoglobin 11.5 G/DL (14.2-18.0) L 12.3 G/DL (14.2-18.0) L Hematocrit 34.2 % (42.0-52.0) L 38.9 % (42.0-52.0) L Mean Corpuscular Volume 80 FL (80-99) 83 FL (80-99) Mean Corpuscular Hemoglobin 26.7 PG (27.0-31.0) L 26.1 PG (27.0-31.0) L Mean Corpuscular Hemoglobin Concent 33.5 G/DL (32.0-36.0) 31.6 G/DL (32.0-36.0) L Red Cell Distribution Width 12.1 % (11.6-14.8) 12.8 % (11.6-14.8) Platelet Count 580 K/UL (150-450) H 629 K/UL (150-450) H Mean Platelet Volume 4.1 FL (6.5-10.1) L 4.5 FL (6.5-10.1) L Neutrophils (%) (Auto) 61.0 % (45.0-75.0) 58.9 % (45.0-75.0) Lymphocytes (%) (Auto) 25.2 % (20.0-45.0) 29.1 % (20.0-45.0) Monocytes (%) (Auto) 9.2 % (1.0-10.0) 7.2 % (1.0-10.0) Eosinophils (%) (Auto) 2.8 % (0.0-3.0) 3.1 % (0.0-3.0) H Basophils (%) (Auto) 1.9 % (0.0-2.0) 1.8 % (0.0-2.0) Coagulation Test 09/17/18 17:05 09/18/18 10:00 Prothrombin Time 11.6 SEC (9.30-11.50) H 11.8 SEC (9.30-11.50) H Prothromb Time International Ratio 1.1 (0.9-1.1) 1.1 (0.9-1.1) Activated Partial Thromboplast Time 34 SEC (23-33) H 33 SEC (23-33) Chemistry Test 09/17/18 17:05 09/18/18 10:00 Sodium Level 134 MMOL/L (136-145) L 140 MMOL/L (136-145) Potassium Level 4.1 MMOL/L (3.5-5.1) 4.1 MMOL/L (3.5-5.1) Chloride Level 100 MMOL/L (98-107) 103 MMOL/L (98-107) Carbon Dioxide Level 26 MMOL/L (21-32) 28 MMOL/L (21-32) Anion Gap 8 mmol/L (5-15) 9 mmol/L (5-15) Blood Urea Nitrogen 9 mg/dL (7-18) 5 mg/dL (7-18) L Creatinine 0.8 MG/DL (0.55-1.30) 0.9 MG/DL (0.55-1.30) Estimat Glomerular Filtration Rate > 60 mL/min (>60) > 60 mL/min (>60) Glucose Level 99 MG/DL (74-106) 120 MG/DL (74-106) H Lactic Acid Level 1.20 mmol/L (0.4-2.0) Calcium Level 9.1 MG/DL (8.5-10.1) 9.1 MG/DL (8.5-10.1) Total Bilirubin 0.3 MG/DL (0.2-1.0) Aspartate Amino Transf (AST/SGOT) 18 U/L (15-37) Alanine Aminotransferase (ALT/SGPT) 11 U/L (12-78) L Alkaline Phosphatase 203 U/L (46-116) H Total Protein 9.0 G/DL (6.4-8.2) H Albumin 1.8 G/DL (3.4-5.0) L Globulin 7.2 g/dL Albumin/Globulin Ratio 0.2 (1.0-2.7) L Risk Assessment & Plan Assessment: ASA 4 Plan: MAC Status Change Before Surgery: No Pre-Antibiotics Drug: as scheduled Toney Villarreal MD September 18, 2018 13:34
[2018-09-18] MEDS ORDERED: DiphenhydrAMINE 50mg/ml Inj IVP PRN (13:45)
[2018-09-18] MEDS ORDERED: Meperidine 50mg/ml Inj(FOR RIGORS ONLY) IV PRN (13:45)
--- NOTE | 2018-09-18 13:52 | Immediate Post-Op Evaluation ---
Immediate Post-Op Evalulation Immediate Post-Op Evalulation Procedure: Debridement of Gr. 4 decubitus ulcer Date of Evaluation: September 18, 2018 Time of Evaluation: 13:51 IV Fluids: 300 Blood Products: none Estimated Blood Loss: min Urinary Output: none Blood Pressure Systolic: 111 Blood Pressure Diastolic: 75 Pulse Rate: 82 Respiratory Rate: 20 O2 Sat by Pulse Oximetry: 98 Temperature (Fahrenheit): 97.6 Pain Score (1-10): 1 Nausea: No Vomiting: No Complications none Patient Status: awake, patent, none Hydration Status: adequate Toney Villarreal MD September 18, 2018 13:52
--- NOTE | 2018-09-18 14:21 | Brief Operative Note ---
Immediate Post Operative Note Operative Note Pre-op Diagnosis: infected necrotic left ischial decubitus ulcer Procedure: excisional debridement of left ischial decubitus ulcer bone biopsy Post-op Diagnosis: same as pre-op Surgeon: zenaida Anesthesiologist: jeremias Anesthesia: MAC Specimen: yes Complications: none Condition: stable Fluids: see records Estimated Blood Loss: minimal Drains: none Implant(s) used?: No Gaston Farah September 18, 2018 14:21
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
[2018-09-18] MEDS ORDERED: Milk of Magnesia 30ml Ud ORAL PRN (14:30)
[2018-09-18] MEDS ORDERED: HYDROcodone/Acetamin 5/325 tab ORAL PRN (15:00)
[2018-09-18] MEDS: HYDROcodone/Acetamin 10/325 tab ORAL PRN (17:48)
[2018-09-18] MEDS: Docusate 100mg cap ORAL SCH (18:00)
--- NOTE | 2018-09-18 19:19 | NUR ---
HAND-OFF: Report given to Kisha YOST RN.
--- NOTE | 2018-09-18 19:30 | NUR ---
NURSE NOTES: Patient received in bed, asleep, appears in no distress at this time. IV on REJ intact and patent. Colostomy intact, gas filled with small brown liquid stool. Kelley catheter draining urine via gravity, secured to thigh. Wound dressing intact. Will continue plan of care.
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
[2018-09-19] VITALS: BP 133/80
[2018-09-19] MEDS: HYDROcodone/Acetamin 10/325 tab ORAL PRN ×3 (00:36→12:40)
[2018-09-19 04:00] VITALS: BP 121/68
--- NOTE | 2018-09-19 05:00 | NUR ---
NURSE NOTES: Left ischial dressing saturated and all the tapes and dressing came off. Wound draining copious amount of sanguinous drainage. Redressed and packed with wet to dry gauze and covered with optifoam.
--- NOTE | 2018-09-19 07:09 | NUR ---
HAND-OFF: Report given to Arcenio Stewart RN.
--- NOTE | 2018-09-19 07:25 | NUR ---
NURSE NOTES: PT REFUSING MORNING LABS, INCLUDING VANCO TROUGH. IN NO APPARENT DISTRESS AT THIS TIME. BED IN LOWEST POSITION WITH HOB ELEVATED. CALL LIGHT WITHIN REACH. WILL CONTINUE TO MONITOR.
--- NOTE | 2018-09-19 07:45 | NUR ---
NURSE NOTES: PT WAS REPOSITIONED WITH ASSIST AND LEFT ISCHIAL DRESSING WITH LARGE AMOUNT OF SERO-SANG DRAINAGE, SOAKING 25% OF PAD UNDERNEATH. RN CHANGED DRESSING ORDERED.
[2018-09-19 08:00] VITALS: BP 92/53
[2018-09-19] MEDS: DULoxetine 30mg cap ORAL SCH (08:10)
--- NOTE | 2018-09-19 08:16 | NUR ---
NURSE NOTES:WOUND CARE NOTES:Pt S/P Surgical debridement of L ischial pressure injury.Upon entry to pt's room ,pt observed laying on L side in bed. Pt was educated and encouraged to avoid laying on L side as much as he could tolerate to prevent pressure on wound. Pt stated he understood but was uncomfortable on his R side but would attempt to stay on R side as much as possible. Pt's drsg changed along with primary nurse. Base of wound viable . Small amt serosanguineous exudate noted. No odor noted. Periwound without erythema or induration. An area of darker than is normal skin tone with delineated margins noted to R trochanter. Proximally at base of wound an area of fluctuance noted. Resolving pressure injury noted to R heel . Base of wound granular with callused edges .Periwound dry ,black with additional callusing.No odor or exudate noted . Dry eschar with surrounding callusing noted to L heel. Tx.Plan: Apply Betadine to R heel .Cover with Optifoam drsg. Change every 3 days and prn. Apply Betadine to L heel. Cover with OPtifoam drsg every 3 days and prn. Air Fluidized mattress. Reposition at least every 2hours or as tolerated. Educate and encourage pt to avoid laying on L side as much as can be tolerated. Off-load heels with pillow.
[2018-09-19] MEDS: Vancomycin 1.5gm Premix IVPB SCH ×2 (09:33→12:39)
[2018-09-19] MEDS: Docusate 100mg cap ORAL SCH ×2 (09:33→18:00)
[2018-09-19] MEDS: Naloxegol Oxalate 25mg tab ORAL SCH (09:33)
[2018-09-19] MEDS: Zinc Sulfate 220mg cap ORAL SCH (09:33)
[2018-09-19] MEDS: Lactulose 20gm/30ml UDC ORAL SCH (09:33)
[2018-09-19] MEDS: Ascorbic Acid 500mg tab ORAL SCH (09:33)
[2018-09-19] MEDS: Multivitamin w/Minerals tab ORAL SCH (09:33)
[2018-09-19] MEDS: Heparin 5000 units/ml inj SUBQ SCH ×2 (09:33→20:41)
[2018-09-19] MEDS: Dakin's 0.125% Soln (Quarter Strength) 16oz TOPIC SCH (09:34)
[2018-09-19 09:39] LABS: BASOPHILS % (AUTO) 1.5 % (0.0-2.0); EOSINOPHILS % (AUTO) 4.2 % (0.0-3.0); HEMATOCRIT 36.3 % (42.0-52.0); HEMOGLOBIN 11.5 G/DL (14.2-18.0); LYMPHOCYTES % (AUTO) 32.8 % (20.0-45.0); MEAN CORPUSCULAR VOLUME 83 FL (80-99); MONOCYTES % (AUTO) 7.4 % (1.0-10.0); NEUTROPHILS % (AUTO) 54.1 % (45.0-75.0); PLATELET COUNT 598 K/UL (150-450); RED BLOOD COUNT 4.38 M/UL (4.70-6.10); RED CELL DISTRIBUTION WIDTH 13.1 % (11.6-14.8); WHITE BLOOD COUNT 8.6 K/UL (4.8-10.8)
[2018-09-19 09:44] LABS: ANION GAP 8 mmol/L (5-15); BLOOD UREA NITROGEN 9 mg/dL (7-18); CALCIUM 9.1 MG/DL (8.5-10.1); CARBON DIOXIDE 29 MMOL/L (21-32); CHLORIDE 106 MMOL/L (98-107); CREATININE 1.2 MG/DL (0.55-1.30); POTASSIUM 3.8 MMOL/L (3.5-5.1); SODIUM 143 MMOL/L (136-145)
--- NOTE | 2018-09-19 10:11 | 48 Hour Post Anesthesia Eval ---
Post Anesthesia Evaluation Procedure: Debridement of Gr. 4 decubitus ulcer Date of Evaluation: September 19, 2018 Time of Evaluation: 10:10 Blood Pressure Systolic: 92 0: 53 Pulse Rate: 92 Respiratory Rate: 19 Temperature (Fahrenheit): 97.1 O2 Sat by Pulse Oximetry: 97 Airway: patent Nausea: No Vomiting: No Pain Intensity: 2 Hydration Status: adequate Cardiopulmonary Status: Stable Mental Status/LOC: patient returned to baseline Follow-up Care/Observations: 0 Post-Anesthesia Complications: 0 Follow-up care needed: N/A Krishna Cooper MD September 19, 2018 10:11
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
--- NOTE | 2018-09-19 10:51 | NUR ---
NURSE NOTES: DR AMARAL MADE AWARE OF COPIOUS SERO-SANG DRAINAGE FROM LEFT ISCHIAL WOUND THAT WAS DEBRIDED TODAY. PER DR AMRAAL, MAY ADMINISTER SCHEDULED HEPARIN SUBQ AND MD WILL ASSESS LATER TODAY.
--- NOTE | 2018-09-19 11:00 | NUR ---
NURSE NOTES: DR LYON MADE AWARE OF NEW MRSA NARES. NO NEW ORDERS RECEIVED FROM .
[2018-09-19 12:00] VITALS: BP 119/72
--- NOTE | 2018-09-19 12:51 | NUR ---
NURSE NOTES: SPECIAL MATTRESS DELIVERED TO PT. PT ON NEW MATTRESS ORDERED BY WOUND RN.
--- NOTE | 2018-09-19 13:27 | Hematology/Onc Progress Note ---
Assessment/Plan Assessment/Plan Assessment and Recs: # Thrombocytosis - likely related to reactive process (and/or underlying infection) underlying ischium infection --> Continue to monitor for improvement --> Trend CBC as needed --> If continues to be elevated, trend as needed --> Smear reviewed and no abnormalities noted. *Under manual differential --> s/p debridement, f/u on bone marrow biopsy # Hyperproteinemia with decreased albumin -- this is a dissociation that is abnormal --> obtain SPEP (serum protein electrophoresis) and UPEP (urine protein electrophoresis) --> if above results in a m-spike or abnormally enhanced protein, will need to send off immunofixation serum/urine --> in the case of a m-spike or abnormally enhanced protein, will obtain a bone marrow biopsy # Leukocytosis is likely due to ischium infection/sacral decub --> surgery and Id consulted, appreciate recs --> debridement as per surgery --> on abx # Full thickness pressure injury to L ischium with acute infection --> debridement per sx # Paraplegia # Chronic indwelling Tim catheter # UTI due to chronic tim # Chronic constipation # Protein calorie malnutrition The timing of this note does not necessarily reflect the time of the patient was seen. Greatly appreciate consultation! Subjective Constitutional: Denies: no symptoms, chills, fever, malaise, weakness, other HEENT: Denies: no symptoms, eye pain, blurred vision, tearing, double vision, ear pain, ear discharge, nose pain, nose congestion, throat pain, throat swelling, mouth pain, mouth swelling, other Cardiovascular: Denies: no symptoms, chest pain, edema, irregular heart rate, lightheadedness, palpitations, syncope, other Respiratory: Denies: no symptoms, cough, shortness of breath, SOB with excertion, SOB at rest, sputum, wheezing, other Gastrointestinal/Abdominal: Denies: no symptoms, abdomen distended, abdominal pain, black stools, tarry stools, blood in stool, constipated, diarrhea, difficulty swallowing, nausea, poor appetite, poor fluid intake, rectal bleeding , vomiting, other Genitourinary: Denies: no symptoms, burning, discharge, frequency, flank pain, hematuria, incontinence, pain, urgency, other Neurologic/Psychiatric: Denies: no symptoms, anxiety, depressed, emotional problems, headache, numbness, paresthesia, pre-existing deficit, seizure, tingling, tremors, weakness, other Allergies: Coded Allergies: MORPHINE (Verified Allergy, Unknown, 09/17/18) Subjective 09/19: no events, no fevers or chills reported, no night sweats, s/p debridement , seen by id Objective Objective Current Medications Medications (Trade) Dose Ordered Sig/Constantin Route PRN Reason Start Time Stop Time Status Last Admin Dose Admin Acetaminophen (Tylenol) 650 mg Q4H PRN ORAL T>100.5/pain 1-3 09/18/18 14:45 10/17/18 17:29 Acetaminophen/ Hydrocodone Bitart ([place] 10/325) 1 tab Q4H PRN ORAL Severe Pain (Pain Scale 7-10) 09/18/18 15:00 09/25/18 14:59 09/19/18 12:40 Acetaminophen/ Hydrocodone Bitart ([place] 5/325) 1 tab Q4H PRN ORAL Moderate Pain (Pain Scale 4-6) 09/18/18 15:00 09/25/18 14:59 Al Hydroxide/Mg Hydroxide (Mylanta) 15 ml Q6H PRN ORAL DYSPEPSIA 09/18/18 14:30 10/18/18 14:29 Ascorbic Acid (Vitamin C) 500 mg DAILY ORAL 09/18/18 09:00 10/18/18 08:59 Carisoprodol (Soma) 350 mg Q8H PRN ORAL muscle spasms 09/17/18 20:06 10/17/18 20:05 09/19/18 09:26 Dextrose (Dextrose 50%) 25 ml Q30M PRN IV Hypoglycemia 09/17/18 17:30 10/17/18 17:29 Dextrose (Dextrose 50%) 50 ml Q30M PRN IV Hypoglycemia 09/17/18 17:30 10/17/18 17:29 Diphenhydramine HCl (Benadryl) 25 mg Q8H PRN ORAL Itching/Pruritis 09/18/18 14:30 10/18/18 14:29 Docusate Sodium (Colace) 100 mg TWICE A DAY ORAL 09/18/18 18:00 10/18/18 17:59 Duloxetine HCl (Cymbalta) 30 mg DAILY ORAL 09/18/18 09:00 10/18/18 08:59 09/19/18 08:10 Heparin Sodium (Porcine) (Heparin 5000 units/ml) 5,000 units EVERY 12 HOURS SUBQ 09/17/18 21:00 10/17/18 20:59 09/18/18 20:49 Lactulose (Cephulac) 20 gm DAILY ORAL 09/18/18 09:00 10/18/18 08:59 Lorazepam (Ativan) 1 mg Q4H PRN ORAL For Anxiety 09/17/18 17:43 09/24/18 17:42 Magnesium Hydroxide (Mom) 30 ml BIDPRN PRN ORAL Constipation 09/18/18 14:30 10/18/18 14:29 Multivitamins Therapeutic (Therapeutic Multivitamin) 1 ea DAILY ORAL 09/18/18 09:00 10/18/18 08:59 Naloxegol (Movantik) 25 mg DAILY ORAL 09/18/18 09:00 10/18/18 08:59 Ondansetron HCl (Zofran) 4 mg Q6H PRN IVP Nausea & Vomiting 09/18/18 14:30 10/18/18 14:29 09/19/18 10:07 Piperacillin Sod/ Tazobactam Sod 3.375 gm/Dextrose 100 ml @ 25 mls/hr EVERY 8 HOURS IVPB 09/17/18 23:00 09/22/18 22:59 09/19/18 05:40 Sodium Hypochlorite (Dakin's Quarter Strength) 1 applic DAILY TOPIC 09/18/18 09:00 10/18/18 08:59 Sodium Chloride 1,000 ml @ 75 mls/hr [id number] IV 09/17/18 21:00 10/17/18 20:59 09/19/18 08:11 Vancomycin HCl (Vanco rx to dose) 1 ea DAILY PRN MISC Per rx protocol 09/17/18 18:00 10/17/18 17:59 Vancomycin HCl/ Dextrose 275 ml @ 137.5 mls/ hr Q12HR@0000,1200 IVPB 09/19/18 12:00 09/24/18 11:59 09/19/18 12:39 Zinc Sulfate (Zinc Sulfate) 220 mg DAILY ORAL 09/18/18 09:00 10/18/18 08:59 Last 24 Hour Vital Signs Date Time Temp Pulse Resp B/P (MAP) Pulse Ox O2 Delivery O2 Flow Rate FiO2 09/19/18 12:00 98.3 80 19 119/72 (88) 99 09/19/18 10:11 92 19 97 09/19/18 09:00 Room Air 09/19/18 08:00 97.1 92 19 92/53 (66) 97 09/19/18 04:00 97.8 76 18 121/68 (85) 98 09/19/18 01:49 97.3 09/19/18 01:06 97.3 09/19/18 00:00 97.4 84 20 133/80 (97) 98 09/18/18 21:00 Room Air 09/18/18 20:00 97.3 77 18 110/71 (84) 96 09/18/18 16:00 98.5 92 16 122/80 (94) 98 09/18/18 14:17 97.6 76 18 132/80 100 Nasal Cannula 3 09/18/18 14:10 88 16 127/78 100 Nasal Cannula 3 09/18/18 14:00 91 14 110/73 100 Nasal Cannula 3 09/18/18 13:55 89 15 111/80 100 Simple Mask 6 09/18/18 13:52 82 20 98 09/18/18 13:50 97.6 86 20 103/72 100 Simple Mask 6 09/18/18 12:00 98.0 89 14 125/85 (98) 97 09/18/18 09:00 Room Air 09/18/18 07:44 98.0 98 12 131/81 (98) 99 09/18/18 04:00 97.9 85 14 123/78 (93) 98 09/18/18 00:00 97.5 100 14 110/70 (83) 97 09/17/18 21:00 Room Air 09/17/18 20:30 98.8 91 16 114/73 (87) 96 09/17/18 20:03 98.2 84 15 106/86 100 Room Air 09/17/18 19:45 97.7 84 15 106/86 100 Room Air 09/17/18 18:55 97.7 89 19 114/71 100 Room Air 09/17/18 18:28 97.7 09/17/18 16:06 97.6 92 19 95/45 95 Room Air 5/27/19 16:06 92 19 Room Air 09/17/18 15:31 97.9 86 18 118/75 (89) 98 Room Air Intake and Output 09/18/18 09/19/18 19:00 07:00 Intake Total 2050.0 ml 1805.0 ml Output Total 1805 ml 1300 ml Balance 245.0 ml 505.0 ml Intake Oral 800 ml 700 ml IV Total 1250.0 ml 1105.0 ml Output Urine Total 1775 ml 1300 ml Estimated Blood Loss 30 ml Labs Test 09/17/18 16:25 09/17/18 17:05 09/18/18 10:00 09/18/18 15:00 Urine Color Brown Urine Appearance Clear Urine pH 6.5 (4.5-8.0) Urine Specific [place] 1.010 (1.005-1.035) Urine Protein 2+ (NEGATIVE) Urine Glucose (UA) Negative (NEGATIVE) Urine Ketones 1+ (NEGATIVE) Urine Blood 5+ (NEGATIVE) Urine Nitrite Positive (NEGATIVE) Urine Bilirubin Negative (NEGATIVE) Urine Urobilinogen 8 MG/DL (0.0-1.0) Urine Leukocyte Esterase 3+ (NEGATIVE) Urine RBC 15-20 /HPF (0 - 0) Urine WBC 10-15 /HPF (0 - 0) Urine Squamous Epithelial Cells Few /LPF (NONE/OCC) Urine Amorphous Sediment Few /LPF (NONE) Urine Bacteria Moderate /HPF (NONE) White Blood Count 15.2 K/UL (4.8-10.8) 9.7 K/UL (4.8-10.8) Red Blood Count 4.30 M/UL (4.70-6.10) 4.70 M/UL (4.70-6.10) Hemoglobin 11.5 G/DL (14.2-18.0) 12.3 G/DL (14.2-18.0) Hematocrit 34.2 % (42.0-52.0) 38.9 % (42.0-52.0) Mean Corpuscular Volume 80 FL (80-99) 83 FL (80-99) Mean Corpuscular Hemoglobin 26.7 PG (27.0-31.0) 26.1 PG (27.0-31.0) Mean Corpuscular Hemoglobin Concent 33.5 G/DL (32.0-36.0) 31.6 G/DL (32.0-36.0) Red Cell Distribution Width 12.1 % (11.6-14.8) 12.8 % (11.6-14.8) Platelet Count 580 K/UL (150-450) 629 K/UL (150-450) Mean Platelet Volume 4.1 FL (6.5-10.1) 4.5 FL (6.5-10.1) Neutrophils (%) (Auto) 61.0 % (45.0-75.0) 58.9 % (45.0-75.0) Lymphocytes (%) (Auto) 25.2 % (20.0-45.0) 29.1 % (20.0-45.0) Monocytes (%) (Auto) 9.2 % (1.0-10.0) 7.2 % (1.0-10.0) Eosinophils (%) (Auto) 2.8 % (0.0-3.0) 3.1 % (0.0-3.0) Basophils (%) (Auto) 1.9 % (0.0-2.0) 1.8 % (0.0-2.0) Prothrombin Time 11.6 SEC (9.30-11.50) 11.8 SEC (9.30-11.50) Prothromb Time International Ratio 1.1 (0.9-1.1) 1.1 (0.9-1.1) Activated Partial Thromboplast Time 34 SEC (23-33) 33 SEC (23-33) Sodium Level 134 MMOL/L (136-145) 140 MMOL/L (136-145) Potassium Level 4.1 MMOL/L (3.5-5.1) 4.1 MMOL/L (3.5-5.1) Chloride Level 100 MMOL/L (98-107) 103 MMOL/L (98-107) Carbon Dioxide Level 26 MMOL/L (21-32) 28 MMOL/L (21-32) Anion Gap 8 mmol/L (5-15) 9 mmol/L (5-15) Blood Urea Nitrogen 9 mg/dL (7-18) 5 mg/dL (7-18) Creatinine 0.8 MG/DL (0.55-1.30) 0.9 MG/DL (0.55-1.30) Estimat Glomerular Filtration Rate > 60 mL/min (>60) > 60 mL/min (>60) Glucose Level 99 MG/DL (74-106) 120 MG/DL (74-106) Lactic Acid Level 1.20 mmol/L (0.4-2.0) Calcium Level 9.1 MG/DL (8.5-10.1) 9.1 MG/DL (8.5-10.1) Total Bilirubin 0.3 MG/DL (0.2-1.0) Aspartate Amino Transf (AST/SGOT) 18 U/L (15-37) Alanine Aminotransferase (ALT/SGPT) 11 U/L (12-78) Alkaline Phosphatase 203 U/L (46-116) Total Protein 9.0 G/DL (6.4-8.2) Albumin 1.8 G/DL (3.4-5.0) Globulin 7.2 g/dL Albumin/Globulin Ratio 0.2 (1.0-2.7) Test 09/18/18 15:30 09/19/18 09:00 White Blood Count 8.6 K/UL (4.8-10.8) Red Blood Count 4.38 M/UL (4.70-6.10) Hemoglobin 11.5 G/DL (14.2-18.0) Hematocrit 36.3 % (42.0-52.0) Mean Corpuscular Volume 83 FL (80-99) Mean Corpuscular Hemoglobin 26.2 PG (27.0-31.0) Mean Corpuscular Hemoglobin Concent 31.6 G/DL (32.0-36.0) Red Cell Distribution Width 13.1 % (11.6-14.8) Platelet Count 598 K/UL (150-450) Mean Platelet Volume 4.7 FL (6.5-10.1) Neutrophils (%) (Auto) 54.1 % (45.0-75.0) Lymphocytes (%) (Auto) 32.8 % (20.0-45.0) Monocytes (%) (Auto) 7.4 % (1.0-10.0) Eosinophils (%) (Auto) 4.2 % (0.0-3.0) Basophils (%) (Auto) 1.5 % (0.0-2.0) Sodium Level 143 MMOL/L (136-145) Potassium Level 3.8 MMOL/L (3.5-5.1) Chloride Level 106 MMOL/L (98-107) Carbon Dioxide Level 29 MMOL/L (21-32) Anion Gap 8 mmol/L (5-15) Blood Urea Nitrogen 9 mg/dL (7-18) Creatinine 1.2 MG/DL (0.55-1.30) Estimat Glomerular Filtration Rate > 60 mL/min (>60) Glucose Level 149 MG/DL (74-106) Calcium Level 9.1 MG/DL (8.5-10.1) Vancomycin Level Trough 20.4 ug/mL (5.0-12.0) Micro Microbiology Date/Time Source Procedure Growth Status 09/18/18 13:26 Other(Specify in comment) Gram Stain - Final Resulted 09/18/18 13:26 Other(Specify in comment) Aerobic Culture Pending Resulted Height (Feet): 5 Height (Inches): 8.00 Weight (Pounds): 188 Objective General Appearance: no apparent distress, alert HEENT: atraumatic, anicteric Neck: normal alignment, normal inspection Respiratory/Chest: lungs clear, normal breath sounds, no respiratory distress Cardiovascular/Chest: normal rate, regular rhythm Abdomen: non tender, soft, no organomegaly Extremities: non-tender Neurologic: alert, oriented x 3, normal mood/affect Gene Higgins MD September 19, 2018 13:27
--- NOTE | 2018-09-19 14:33 | NUR ---
RD ASSESSMENT & RECOMMENDATIONS SEE CARE ACTIVITY FOR COMPLETE ASSESSMENT DAILY ESTIMATED NEEDS: Needs based on Wound, paraplegia 73.8kg adj 28-30 kcals/kg 5952-4657 total kcals 1.25-2 g protein/kg 92-148 g total protein 25-30 mL/kg 4005-3157 total fluid mLs NUTRITION DIAGNOSIS: Increased kcal and pro needs r/t wound healing as evidenced by pt w/ 'infected necrotic left ischial decubitus ulcer with nonviable prior flap' per MD, now s/p debridement. CURRENT DIET: Regular PO DIET RECOMMENDATIONS: REGULAR/ DOUBLE PROTEINS ADDITIONAL RECOMMENDATIONS: 1) Add Ensure BID 2) Wound care: add ANAM BID 3) Obtain a calibrated bed scale wt w/ now added P200 mattress
--- NOTE | 2018-09-19 14:58 | NUR ---
NURSE NOTES: WOUND CARE EVAL DONE WITH [facility] WOUND CARE NURSE. DR AMARAL AT BEDSIDE AND EVALUATED LEFT ISCHIAL WOUND. PER MD, HE WILL NOT CHANGE PAIN MEDICATIONS.
--- NOTE | 2018-09-19 15:15 | NUR ---
RADIOLOGY DEPT., ABDOMEN X-RAY COMPLETED.-P.DYE
--- NOTE | 2018-09-19 15:58 | General Progress Note ---
Assessment/Plan Assessment/Plan: #Full thickness pressure injury to L ischium with acute infection #s/p Excisional debridement of left ischial decubitus ulcer and nonviable flap #Leukocytosis, improved #Paraplegia #Chronic indwelling Tim catheter #UTI due to chronic tim #Chronic constipation #Protein calorie malnutrition -continue inpatient level of care -Broad spectrum IV abx per Infectious Disease, follow up wound cultures -monitor CBC -Surgery eval following -Routine post-op care -Follow up urine cultures -continue outpatient pain regimen Subjective Date patient seen: September 19, 2018 Time patient seen: 15:55 ROS Limited/Unobtainable: No Cardiovascular: Denies: chest pain Respiratory: Denies: cough Gastrointestinal/Abdominal: Denies: abdominal pain Genitourinary: Denies: burning Allergies: Coded Allergies: MORPHINE (Verified Allergy, Unknown, 09/17/18) Subjective Medicine follow up for infected left ischial ulcer He underwent Excisional debridement of left ischial decubitus ulcer and nonviable flap 09/18 Complains of chronic pain and muscle spasms Objective Last 24 Hour Vital Signs Date Time Temp Pulse Resp B/P (MAP) Pulse Ox O2 Delivery O2 Flow Rate FiO2 09/19/18 12:00 98.3 80 19 119/72 (88) 99 09/19/18 10:11 92 19 97 09/19/18 09:00 Room Air 09/19/18 08:00 97.1 92 19 92/53 (66) 97 09/19/18 04:00 97.8 76 18 121/68 (85) 98 09/19/18 01:49 97.3 09/19/18 01:06 97.3 09/19/18 00:00 97.4 84 20 133/80 (97) 98 09/18/18 21:00 Room Air 09/18/18 20:00 97.3 77 18 110/71 (84) 96 09/18/18 16:00 98.5 92 16 122/80 (94) 98 Intake and Output 09/18/18 09/19/18 19:00 07:00 Intake Total 2050.0 ml 1805.0 ml Output Total 1805 ml 1300 ml Balance 245.0 ml 505.0 ml Intake Oral 800 ml 700 ml IV Total 1250.0 ml 1105.0 ml Output Urine Total 1775 ml 1300 ml Estimated Blood Loss 30 ml Laboratory Tests 09/19/18 09:00: White Blood Count 8.6, Red Blood Count 4.38L, Hemoglobin 11.5L, Hematocrit 36.3L , Mean Corpuscular Volume 83, Mean Corpuscular Hemoglobin 26.2L, Mean Corpuscular Hemoglobin Concent 31.6L, Red Cell Distribution Width 13.1, Platelet Count 598H, Mean Platelet Volume 4.7L, Neutrophils (%) (Auto) 54.1, Lymphocytes (%) (Auto) 32.8, Monocytes (%) (Auto) 7.4, Eosinophils (%) (Auto) 4.2H, Basophils (%) (Auto) 1.5, Sodium Level 143, Potassium Level 3.8, Chloride Level 106, Carbon Dioxide Level 29, Anion Gap 8, Blood Urea Nitrogen 9, Creatinine 1.2, Estimat Glomerular Filtration Rate > 60, Glucose Level 149H, Calcium Level 9.1, Vancomycin Level Trough 20.4H Height (Feet): 5 Height (Inches): 8.00 Weight (Pounds): 188 General Appearance: no apparent distress, alert Neck: normal alignment Cardiovascular: normal rate, regular rhythm Respiratory/Chest: lungs clear, normal breath sounds Abdomen: non tender Serjio Easton MD September 19, 2018 15:58
[2018-09-19 16:00] VITALS: BP 111/69
[2018-09-19] MEDS ORDERED: HYDROcodone/Acetamin 10/325 tab ORAL PRN ×2 (16:00→16:15)
--- NOTE | 2018-09-19 16:02 | Surgery Progress Note ---
Surgery Progress Note Subjective Procedure Performed excisional debridement of left ischial decubitus ulcer bone biopsy Symptoms: improved, pain same, tolerating diet, passing flatus, BM Objective Last 24 Hour Vital Signs Date Time Temp Pulse Resp B/P (MAP) Pulse Ox O2 Delivery O2 Flow Rate FiO2 09/19/18 12:00 98.3 80 19 119/72 (88) 99 09/19/18 10:11 92 19 97 09/19/18 09:00 Room Air 09/19/18 08:00 97.1 92 19 92/53 (66) 97 09/19/18 04:00 97.8 76 18 121/68 (85) 98 09/19/18 01:49 97.3 09/19/18 01:06 97.3 09/19/18 00:00 97.4 84 20 133/80 (97) 98 09/18/18 21:00 Room Air 09/18/18 20:00 97.3 77 18 110/71 (84) 96 I&O Intake and Output 09/18/18 09/19/18 19:00 07:00 Intake Total 2050.0 ml 1805.0 ml Output Total 1805 ml 1300 ml Balance 245.0 ml 505.0 ml Intake Oral 800 ml 700 ml IV Total 1250.0 ml 1105.0 ml Output Urine Total 1775 ml 1300 ml Estimated Blood Loss 30 ml Dressing: saturated Wound: clean Drains: none Cardiovascular: RSR Respiratory: clear Abdomen: soft, non-tender, present bowel sounds, other - ostomy , non-distended Extremities: no tenderness, no cyanosis Laboratory Tests Test 09/19/18 09:00 White Blood Count 8.6 K/UL (4.8-10.8) Red Blood Count 4.38 M/UL (4.70-6.10) L Hemoglobin 11.5 G/DL (14.2-18.0) L Hematocrit 36.3 % (42.0-52.0) L Mean Corpuscular Volume 83 FL (80-99) Mean Corpuscular Hemoglobin 26.2 PG (27.0-31.0) L Mean Corpuscular Hemoglobin Concent 31.6 G/DL (32.0-36.0) L Red Cell Distribution Width 13.1 % (11.6-14.8) Platelet Count 598 K/UL (150-450) H Mean Platelet Volume 4.7 FL (6.5-10.1) L Neutrophils (%) (Auto) 54.1 % (45.0-75.0) Lymphocytes (%) (Auto) 32.8 % (20.0-45.0) Monocytes (%) (Auto) 7.4 % (1.0-10.0) Eosinophils (%) (Auto) 4.2 % (0.0-3.0) H Basophils (%) (Auto) 1.5 % (0.0-2.0) Sodium Level 143 MMOL/L (136-145) Potassium Level 3.8 MMOL/L (3.5-5.1) Chloride Level 106 MMOL/L (98-107) Carbon Dioxide Level 29 MMOL/L (21-32) Anion Gap 8 mmol/L (5-15) Blood Urea Nitrogen 9 mg/dL (7-18) Creatinine 1.2 MG/DL (0.55-1.30) Estimat Glomerular Filtration Rate > 60 mL/min (>60) Glucose Level 149 MG/DL (74-106) H Calcium Level 9.1 MG/DL (8.5-10.1) Vancomycin Level Trough 20.4 ug/mL (5.0-12.0) H Plan Problems: (1) UTI (urinary tract infection) Assessment & Plan: IV Abx as per ID trend labs cont current care (2) Decubitus ulcers (3) Colostomy in place (4) Infected pressure ulcer Assessment & Plan: Pt presented on admission with full thickness pressure injury to L ischium. Base of wound has significantly deteriorated with near 100 % necrotic sloth,(+) maceration along borders. Small amt purulent exudate noted. foul odor noted. Periwound dark without erythema or induration. approximately (L)8cm x (W)5cm x (D)3+cm. DTPI noted to R trochanter.Base of wound with darker skin tone with fluctuance when minimally palpated.Periwound without erythema or induration. Partial thickness wound Dorsal L foot .Base of wound moist -viable.Edges darker but flat and adherent to base of wound. No odor or exudate noted. (L)4.8cm x (W) 0.8cm.Both heels are dry and blanchable. Historical scars noted to sacrum and R ischium Tx.Plan: Cleanse L ischial wounds with Saline. Apply NS moist gauze .Apply Triad periwound. Cover with Optifoam drsg. Change Daily and prn. Apply Cavilon Skin Barrier to R trochanter DTPI. Cover with Optifoam drsg. Change every 7 days and prn. Cleanse wound dorsum L foot. Apply Hydrogel. Apply Cavilon Skin Barrier periwound. Cover with Optifoam drsg. Change every 7 days and prn. APM/MARCI Mattress. Reposition at least every 2hours or as tolerated. Off-load heels with pillow. doing much better since debridement. wound much improved. Gaston Farah September 19, 2018 16:02
[2018-09-19] MEDS ORDERED: HYDROcodone/Acetamin 5/325 tab ORAL PRN (16:15)
[2018-09-19] MEDS: HYDROmorphone 4mg tab ORAL PRN ×2 (17:20→21:31)
--- NOTE | 2018-09-19 18:26 | NUR ---
NURSE NOTES: THIRD DRESSING CHANGE OF LEFT ISCHIAL TUBEROSITY DONE. PT TOLERATED WELL. IN NO APPARENT DISTRESS AT THIS TIME. WILL CONTINUE TO MONITOR.
--- NOTE | 2018-09-19 18:41 | Diagnostic Imaging Report ---
Indication: Abdominal pain Technique: Supine view of the abdomen Comparison: 06/30/2018 Findings: Bowel gas pattern is unremarkable. No unusual masses or calcifications. There is evidence of prior sternotomy. There are degenerative changes of the hips bilaterally. Impression: Findings as noted. No definite acute process
--- NOTE | 2018-09-19 19:31 | NUR ---
HAND-OFF: Report given to Shanika ROBLERO RN.
--- NOTE | 2018-09-19 19:36 | NUR ---
NURSE NOTES: Patient awake in bed, alert and oriented x4, no respiratory distress noted. Instructed the use of call light. Call light and needs in reach. Bed in lowest position, lock engaged and alarm on. Will continue to monitor.
[2018-09-19 20:00] VITALS: BP 119/76
[2018-09-20] VITALS (7 sets, daily range): BP systolic 110–140; BP diastolic 64–88
[2018-09-20] MEDS: Vancomycin 1.5gm Premix IVPB SCH ×2 (02:00→11:51)
[2018-09-20] MEDS: HYDROmorphone 4mg tab ORAL PRN ×5 (02:00→21:02)
--- NOTE | 2018-09-20 07:31 | NUR ---
HAND-OFF: Report given to ADRIANNA Lynn.
--- NOTE | 2018-09-20 07:49 | NUR ---
NURSE NOTES: Patient received resting in bed, eating breakfast. Denies SOB or pain at this time. No signs of distress noted. Kelley catheter patent and intact. IV site without complications, with fluids running. Bed locked in lowest position, call light placed within reach. Will continue to monitor.
[2018-09-20] MEDS: DULoxetine 30mg cap ORAL SCH (08:14)
[2018-09-20] MEDS: Naloxegol Oxalate 25mg tab ORAL SCH (08:14)
[2018-09-20] MEDS: Heparin 5000 units/ml inj SUBQ SCH ×2 (08:15→21:04)
[2018-09-20] MEDS: HYDROcodone/Acetamin 10/325 tab ORAL PRN (08:18)
[2018-09-20] MEDS: Docusate 100mg cap ORAL SCH ×2 (08:25→16:56)
[2018-09-20] MEDS: Lactulose 20gm/30ml UDC ORAL SCH (08:25)
[2018-09-20] MEDS: Multivitamin w/Minerals tab ORAL SCH (08:26)
[2018-09-20] MEDS: Ascorbic Acid 500mg tab ORAL SCH (08:26)
[2018-09-20] MEDS: Zinc Sulfate 220mg cap ORAL SCH (08:26)
[2018-09-20] MEDS: Dakin's 0.125% Soln (Quarter Strength) 16oz TOPIC SCH (08:26)
[2018-09-20 09:38] LABS: BASOPHILS % (AUTO) 1.7 % (0.0-2.0); EOSINOPHILS % (AUTO) 5.8 % (0.0-3.0); HEMATOCRIT 33.7 % (42.0-52.0); HEMOGLOBIN 10.7 G/DL (14.2-18.0); LYMPHOCYTES % (AUTO) 37.7 % (20.0-45.0); MEAN CORPUSCULAR VOLUME 84 FL (80-99); MONOCYTES % (AUTO) 6.6 % (1.0-10.0); NEUTROPHILS % (AUTO) 48.2 % (45.0-75.0); PLATELET COUNT 551 K/UL (150-450); RED BLOOD COUNT 4.03 M/UL (4.70-6.10); RED CELL DISTRIBUTION WIDTH 12.9 % (11.6-14.8)
[2018-09-20 09:41] LABS: ANION GAP 7 mmol/L (5-15); BLOOD UREA NITROGEN 5 mg/dL (7-18); CALCIUM 8.7 MG/DL (8.5-10.1); CARBON DIOXIDE 29 MMOL/L (21-32); CHLORIDE 106 MMOL/L (98-107); CREATININE 1.3 MG/DL (0.55-1.30); POTASSIUM 3.6 MMOL/L (3.5-5.1); SODIUM 142 MMOL/L (136-145)
--- NOTE | 2018-09-20 12:57 | NUR ---
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 97.2 HR 80 RR 20 B/P 114/80 IS: IVF NS @ 75ML/HR VANCO IV ZOSYN IV HEPARIN SUBC MED/SURG STATUS
--- NOTE | 2018-09-20 13:05 | NUR ---
P.T Note: P.T evaluation completed and tx initiated. Please refer to P.T evaluation for current functional status.
--- NOTE | 2018-09-20 14:23 | Hematology/Onc Progress Note ---
Assessment/Plan Assessment/Plan Assessment and Recs: # Thrombocytosis - likely related to reactive process (and/or underlying infection) underlying ischium infection --> Continue to monitor for improvement --> Trend plts as needed 551k --> If continues to be elevated, trend as needed --> Smear reviewed and no abnormalities noted. *Under manual differential --> s/p debridement, and biopsy of bone does show osteomyelitis as suspected per id # Hyperproteinemia with decreased albumin -- this is a dissociation that is abnormal, potentially related to inflammation --> spep and upep have been reviewed --> biopsy of bone doesn't show myeloma, shows osteomyelitis # Leukocytosis is likely due to ischium infection/sacral decub --> surgery and Id consulted, appreciate recs --> debridement as per surgery --> on abx # Anemia of chronic disease --> hold off further w/u unless hgb less than 10 --> trend as needed # Full thickness pressure injury to L ischium with acute infection --> debridement per sx and shows ostemyelitis --> ID and surg f/u on abx # Paraplegia # Chronic indwelling Tim catheter # UTI due to chronic tim # Chronic constipation # Protein calorie malnutrition The timing of this note does not necessarily reflect the time of the patient was seen. Greatly appreciate consultation! Subjective Cardiovascular: Denies: no symptoms, chest pain, edema, irregular heart rate, lightheadedness, palpitations, syncope, other Gastrointestinal/Abdominal: Denies: no symptoms, abdomen distended, abdominal pain, black stools, tarry stools, blood in stool, constipated, diarrhea, difficulty swallowing, nausea, poor appetite, poor fluid intake, rectal bleeding , vomiting, other Neurologic/Psychiatric: Denies: no symptoms, anxiety, depressed, emotional problems, headache, numbness, paresthesia, pre-existing deficit, seizure, tingling, tremors, weakness, other Endocrine: Denies: no symptoms, excessive sweating, flushing, intolerance to cold, intolerance to heat, increased hunger, increased thirst, increased urine, unexplained weight gain, unexplained weight loss, other Hematologic/Lymphatic: Denies: no symptoms, anemia, easy bleeding, easy bruising, adenopathy, other Allergies: Coded Allergies: MORPHINE (Verified Allergy, Unknown, 09/17/18) Subjective 09/19: no events, no fevers or chills reported, no night sweats, s/p debridement , seen by id 09/20: getting PT today, no events, less pain, recovering from surgery Objective Objective Current Medications Medications (Trade) Dose Ordered Sig/Constantin Route PRN Reason Start Time Stop Time Status Last Admin Dose Admin Acetaminophen (Tylenol) 650 mg Q4H PRN ORAL T>100.5 09/19/18 16:15 10/17/18 17:29 Acetaminophen/ Hydrocodone Bitart (Dixon 10/325) 1 tab Q4H PRN ORAL moderate pain 09/19/18 16:15 09/26/18 15:59 09/20/18 08:18 Acetaminophen/ Hydrocodone Bitart (Dixon 5/325) 1 tab Q4H PRN ORAL mild pain 09/19/18 16:15 09/25/18 14:59 Al Hydroxide/Mg Hydroxide (Mylanta) 15 ml Q6H PRN ORAL DYSPEPSIA 09/18/18 14:30 10/18/18 14:29 Ascorbic Acid (Vitamin C) 500 mg DAILY ORAL 09/18/18 09:00 10/18/18 08:59 Carisoprodol (Soma) 350 mg Q8H PRN ORAL muscle spasms 09/17/18 20:06 10/17/18 20:05 09/19/18 18:11 Dextrose (Dextrose 50%) 25 ml Q30M PRN IV Hypoglycemia 09/17/18 17:30 10/17/18 17:29 Dextrose (Dextrose 50%) 50 ml Q30M PRN IV Hypoglycemia 09/17/18 17:30 10/17/18 17:29 Diphenhydramine HCl (Benadryl) 25 mg Q8H PRN ORAL Itching/Pruritis 09/18/18 14:30 10/18/18 14:29 Docusate Sodium (Colace) 100 mg TWICE A DAY ORAL 09/18/18 18:00 10/18/18 17:59 Duloxetine HCl (Cymbalta) 30 mg DAILY ORAL 09/18/18 09:00 10/18/18 08:59 09/20/18 08:14 Heparin Sodium (Porcine) (Heparin 5000 units/ml) 5,000 units EVERY 12 HOURS SUBQ 09/17/18 21:00 10/17/18 20:59 09/20/18 08:15 Hydromorphone HCl (Dilaudid) 4 mg Q4H PRN ORAL Severe Pain (Pain Scale 7-10) 09/19/18 16:00 09/26/18 15:59 09/20/18 10:41 Lactulose (Cephulac) 20 gm DAILY ORAL 09/18/18 09:00 10/18/18 08:59 Lorazepam (Ativan) 1 mg Q4H PRN ORAL For Anxiety 09/17/18 17:43 09/24/18 17:42 Magnesium Hydroxide (Mom) 30 ml BIDPRN PRN ORAL Constipation 09/18/18 14:30 10/18/18 14:29 Multivitamins Therapeutic (Therapeutic Multivitamin) 1 ea DAILY ORAL 09/18/18 09:00 10/18/18 08:59 Naloxegol (Movantik) 25 mg DAILY ORAL 09/18/18 09:00 10/18/18 08:59 09/20/18 08:14 Ondansetron HCl (Zofran) 4 mg Q6H PRN IVP Nausea & Vomiting 09/18/18 14:30 10/18/18 14:29 09/19/18 10:07 Piperacillin Sod/ Tazobactam Sod 3.375 gm/Dextrose 100 ml @ 25 mls/hr EVERY 8 HOURS IVPB 09/17/18 23:00 09/22/18 22:59 09/20/18 06:04 Sodium Hypochlorite (Dakin's Quarter Strength) 1 applic DAILY TOPIC 09/18/18 09:00 10/18/18 08:59 Sodium Chloride 1,000 ml @ 75 mls/hr [id number] IV 09/17/18 21:00 10/17/18 20:59 09/20/18 06:05 Vancomycin HCl (Vanco rx to dose) 1 ea DAILY PRN MISC Per rx protocol 09/17/18 18:00 10/17/18 17:59 Vancomycin HCl/ Dextrose 275 ml @ 137.5 mls/ hr Q12HR@0000,1200 IVPB 09/19/18 12:00 09/24/18 11:59 09/20/18 11:51 Zinc Sulfate (Zinc Sulfate) 220 mg DAILY ORAL 09/18/18 09:00 10/18/18 08:59 Last 24 Hour Vital Signs Date Time Temp Pulse Resp B/P (MAP) Pulse Ox O2 Delivery O2 Flow Rate FiO2 09/20/18 12:00 98.2 80 20 114/80 (91) 97 09/20/18 09:00 Room Air 09/20/18 08:00 97.2 88 20 117/64 (81) 98 09/20/18 04:00 98.1 90 18 117/75 (89) 97 09/20/18 00:00 97.3 91 18 110/71 (84) 98 09/19/18 21:00 Room Air 09/19/18 20:00 97.2 93 18 119/76 (90) 97 09/19/18 16:00 97.5 79 19 111/69 (83) 99 09/19/18 12:00 98.3 80 19 119/72 (88) 99 09/19/18 10:11 92 19 97 09/19/18 09:00 Room Air 09/19/18 08:00 97.1 92 19 92/53 (66) 97 09/19/18 04:00 97.8 76 18 121/68 (85) 98 09/19/18 01:49 97.3 09/19/18 01:06 97.3 09/19/18 00:00 97.4 84 20 133/80 (97) 98 09/18/18 21:00 Room Air 09/18/18 20:00 97.3 77 18 110/71 (84) 96 09/18/18 16:00 98.5 92 16 122/80 (94) 98 Intake and Output 09/19/18 09/20/18 19:00 07:00 Intake Total 2600.0 ml 400 ml Output Total 2500 ml 1300 ml Balance 100.0 ml -900 ml Intake Oral 1700 ml IV Total 900.0 ml 400 ml Output Urine Total 2500 ml 1300 ml Labs Test 09/17/18 16:25 09/17/18 17:05 09/18/18 10:00 09/18/18 15:00 Urine Color Brown Urine Appearance Clear Urine pH 6.5 (4.5-8.0) Urine Specific [place] 1.010 (1.005-1.035) Urine Protein 2+ (NEGATIVE) Urine Glucose (UA) Negative (NEGATIVE) Urine Ketones 1+ (NEGATIVE) Urine Blood 5+ (NEGATIVE) Urine Nitrite Positive (NEGATIVE) Urine Bilirubin Negative (NEGATIVE) Urine Urobilinogen 8 MG/DL (0.0-1.0) Urine Leukocyte Esterase 3+ (NEGATIVE) Urine RBC 15-20 /HPF (0 - 0) Urine WBC 10-15 /HPF (0 - 0) Urine Squamous Epithelial Cells Few /LPF (NONE/OCC) Urine Amorphous Sediment Few /LPF (NONE) Urine Bacteria Moderate /HPF (NONE) White Blood Count 15.2 K/UL (4.8-10.8) 9.7 K/UL (4.8-10.8) Red Blood Count 4.30 M/UL (4.70-6.10) 4.70 M/UL (4.70-6.10) Hemoglobin 11.5 G/DL (14.2-18.0) 12.3 G/DL (14.2-18.0) Hematocrit 34.2 % (42.0-52.0) 38.9 % (42.0-52.0) Mean Corpuscular Volume 80 FL (80-99) 83 FL (80-99) Mean Corpuscular Hemoglobin 26.7 PG (27.0-31.0) 26.1 PG (27.0-31.0) Mean Corpuscular Hemoglobin Concent 33.5 G/DL (32.0-36.0) 31.6 G/DL (32.0-36.0) Red Cell Distribution Width 12.1 % (11.6-14.8) 12.8 % (11.6-14.8) Platelet Count 580 K/UL (150-450) 629 K/UL (150-450) Mean Platelet Volume 4.1 FL (6.5-10.1) 4.5 FL (6.5-10.1) Neutrophils (%) (Auto) 61.0 % (45.0-75.0) 58.9 % (45.0-75.0) Lymphocytes (%) (Auto) 25.2 % (20.0-45.0) 29.1 % (20.0-45.0) Monocytes (%) (Auto) 9.2 % (1.0-10.0) 7.2 % (1.0-10.0) Eosinophils (%) (Auto) 2.8 % (0.0-3.0) 3.1 % (0.0-3.0) Basophils (%) (Auto) 1.9 % (0.0-2.0) 1.8 % (0.0-2.0) Prothrombin Time 11.6 SEC (9.30-11.50) 11.8 SEC (9.30-11.50) Prothromb Time International Ratio 1.1 (0.9-1.1) 1.1 (0.9-1.1) Activated Partial Thromboplast Time 34 SEC (23-33) 33 SEC (23-33) Sodium Level 134 MMOL/L (136-145) 140 MMOL/L (136-145) Potassium Level 4.1 MMOL/L (3.5-5.1) 4.1 MMOL/L (3.5-5.1) Chloride Level 100 MMOL/L (98-107) 103 MMOL/L (98-107) Carbon Dioxide Level 26 MMOL/L (21-32) 28 MMOL/L (21-32) Anion Gap 8 mmol/L (5-15) 9 mmol/L (5-15) Blood Urea Nitrogen 9 mg/dL (7-18) 5 mg/dL (7-18) Creatinine 0.8 MG/DL (0.55-1.30) 0.9 MG/DL (0.55-1.30) Estimat Glomerular Filtration Rate > 60 mL/min (>60) > 60 mL/min (>60) Glucose Level 99 MG/DL (74-106) 120 MG/DL (74-106) Lactic Acid Level 1.20 mmol/L (0.4-2.0) Calcium Level 9.1 MG/DL (8.5-10.1) 9.1 MG/DL (8.5-10.1) Total Bilirubin 0.3 MG/DL (0.2-1.0) Aspartate Amino Transf (AST/SGOT) 18 U/L (15-37) Alanine Aminotransferase (ALT/SGPT) 11 U/L (12-78) Alkaline Phosphatase 203 U/L (46-116) Total Protein 9.0 G/DL (6.4-8.2) Albumin 1.8 G/DL (3.4-5.0) Globulin 7.2 g/dL Albumin/Globulin Ratio 0.2 (1.0-2.7) Test 09/18/18 15:30 09/19/18 09:00 09/20/18 09:15 Total Protein (PEP) 8.2 g/dL (6.0-8.5) Albumin (PEP) 2.1 g/dL (2.9-4.4) Globulin (PEP) 6.1 g/dL (2.2-3.9) Albumin/Globulin Ratio 0.3 (0.7-1.7) Snpxx-3-Iuqxflbqf 0.5 g/dL (0.0-0.4) Aggvb-3-Ewokralif 1.3 g/dL (0.4-1.0) Beta Globulins 1.8 g/dL (0.7-1.3) Beta Gamma Globulin 2.5 g/dL (0.4-1.8) PEP Abnormal Protein Bands Not observed g/dL (Not Protein Electrophoresis Interpret Comment (.) White Blood Count 8.6 K/UL (4.8-10.8) 8.0 K/UL (4.8-10.8) Red Blood Count 4.38 M/UL (4.70-6.10) 4.03 M/UL (4.70-6.10) Hemoglobin 11.5 G/DL (14.2-18.0) 10.7 G/DL (14.2-18.0) Hematocrit 36.3 % (42.0-52.0) 33.7 % (42.0-52.0) Mean Corpuscular Volume 83 FL (80-99) 84 FL (80-99) Mean Corpuscular Hemoglobin 26.2 PG (27.0-31.0) 26.6 PG (27.0-31.0) Mean Corpuscular Hemoglobin Concent 31.6 G/DL (32.0-36.0) 31.9 G/DL (32.0-36.0) Red Cell Distribution Width 13.1 % (11.6-14.8) 12.9 % (11.6-14.8) Platelet Count 598 K/UL (150-450) 551 K/UL (150-450) Mean Platelet Volume 4.7 FL (6.5-10.1) 4.5 FL (6.5-10.1) Neutrophils (%) (Auto) 54.1 % (45.0-75.0) 48.2 % (45.0-75.0) Lymphocytes (%) (Auto) 32.8 % (20.0-45.0) 37.7 % (20.0-45.0) Monocytes (%) (Auto) 7.4 % (1.0-10.0) 6.6 % (1.0-10.0) Eosinophils (%) (Auto) 4.2 % (0.0-3.0) 5.8 % (0.0-3.0) Basophils (%) (Auto) 1.5 % (0.0-2.0) 1.7 % (0.0-2.0) Sodium Level 143 MMOL/L (136-145) 142 MMOL/L (136-145) Potassium Level 3.8 MMOL/L (3.5-5.1) 3.6 MMOL/L (3.5-5.1) Chloride Level 106 MMOL/L (98-107) 106 MMOL/L (98-107) Carbon Dioxide Level 29 MMOL/L (21-32) 29 MMOL/L (21-32) Anion Gap 8 mmol/L (5-15) 7 mmol/L (5-15) Blood Urea Nitrogen 9 mg/dL (7-18) 5 mg/dL (7-18) Creatinine 1.2 MG/DL (0.55-1.30) 1.3 MG/DL (0.55-1.30) Estimat Glomerular Filtration Rate > 60 mL/min (>60) > 60 mL/min (>60) Glucose Level 149 MG/DL (74-106) 128 MG/DL (74-106) Calcium Level 9.1 MG/DL (8.5-10.1) 8.7 MG/DL (8.5-10.1) Vancomycin Level Trough 20.4 ug/mL (5.0-12.0) Height (Feet): 5 Height (Inches): 8.00 Weight (Pounds): 188 Objective General Appearance: no apparent distress, alert HEENT: atraumatic, anicteric Neck: normal alignment, normal inspection Respiratory/Chest: lungs clear, normal breath sounds, no respiratory distress Cardiovascular/Chest: normal rate, regular rhythm Abdomen: non tender, soft, no organomegaly Extremities: non-tender Neurologic: alert, oriented x 3, normal mood/affect Gene Higgins MD September 20, 2018 14:23
--- NOTE | 2018-09-20 14:59 | General Progress Note ---
Assessment/Plan Assessment/Plan: #Full thickness pressure injury to L ischium with acute infection #s/p Excisional debridement of left ischial decubitus ulcer and nonviable flap #Leukocytosis #Paraplegia #Chronic indwelling Tim catheter #UTI due to chronic tim #Chronic constipation #Protein calorie malnutrition -continue inpatient level of care -Broad spectrum IV abx per Infectious Disease, follow up final wound cultures -monitor CBC -Surgery eval following -Routine post-op care -Follow up urine cultures -continue outpatient pain regimen Subjective Date patient seen: September 20, 2018 Time patient seen: 14:22 ROS Limited/Unobtainable: No Constitutional: Denies: chills, fever Cardiovascular: Denies: chest pain Gastrointestinal/Abdominal: Denies: abdomen distended Neurologic/Psychiatric: Denies: depressed Allergies: Coded Allergies: MORPHINE (Verified Allergy, Unknown, 09/17/18) Subjective Medicine follow up for infected left ischial ulcer underwent Excisional debridement of left ischial decubitus ulcer and nonviable flap 09/18 Back pain better controlled Objective Last 24 Hour Vital Signs Date Time Temp Pulse Resp B/P (MAP) Pulse Ox O2 Delivery O2 Flow Rate FiO2 09/20/18 12:00 98.2 80 20 114/80 (91) 97 09/20/18 09:00 Room Air 09/20/18 08:00 97.2 88 20 117/64 (81) 98 09/20/18 04:00 98.1 90 18 117/75 (89) 97 09/20/18 00:00 97.3 91 18 110/71 (84) 98 09/19/18 21:00 Room Air 09/19/18 20:00 97.2 93 18 119/76 (90) 97 09/19/18 16:00 97.5 79 19 111/69 (83) 99 Intake and Output 09/19/18 09/20/18 19:00 07:00 Intake Total 2600.0 ml 400 ml Output Total 2500 ml 1300 ml Balance 100.0 ml -900 ml Intake Oral 1700 ml IV Total 900.0 ml 400 ml Output Urine Total 2500 ml 1300 ml Laboratory Tests 09/20/18 09:15: White Blood Count 8.0, Red Blood Count 4.03L, Hemoglobin 10.7L, Hematocrit 33.7L , Mean Corpuscular Volume 84, Mean Corpuscular Hemoglobin 26.6L, Mean Corpuscular Hemoglobin Concent 31.9L, Red Cell Distribution Width 12.9, Platelet Count 551H, Mean Platelet Volume 4.5L, Neutrophils (%) (Auto) 48.2, Lymphocytes (%) (Auto) 37.7, Monocytes (%) (Auto) 6.6, Eosinophils (%) (Auto) 5.8H, Basophils (%) (Auto) 1.7, Sodium Level 142, Potassium Level 3.6, Chloride Level 106, Carbon Dioxide Level 29, Anion Gap 7, Blood Urea Nitrogen 5L, Creatinine 1.3, Estimat Glomerular Filtration Rate > 60, Glucose Level 128H, Calcium Level 8.7 Height (Feet): 5 Height (Inches): 8.00 Weight (Pounds): 188 General Appearance: no apparent distress, alert EENT: normal ENT inspection Neck: supple Cardiovascular: normal rate, regular rhythm Respiratory/Chest: lungs clear, normal breath sounds, no respiratory distress Abdomen: non tender, soft Serjio Easton MD September 20, 2018 14:59
--- NOTE | 2018-09-20 19:41 | NUR ---
HAND-OFF: Report given to Srinath RODAS.
--- NOTE | 2018-09-20 19:56 | NUR ---
NURSE NOTES: Patient in bed, awake, alert and verbally responsive. Abdomen is soft and abdomen. SKin is warm and dry to touch. Dressing is intact. IV site is noted, iv fluid is infusing as ordered. Bed in low and locked position. Provided safe environment. Call light is at bedside. WIll continue plan of care.
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
[2018-09-21] MEDS: HYDROmorphone 4mg tab ORAL PRN ×5 (01:12→21:21)
[2018-09-21] MEDS: Vancomycin 1.5gm Premix IVPB SCH ×2 (01:18→12:18)
[2018-09-21 04:00] VITALS: BP 124/75
--- NOTE | 2018-09-21 06:39 | NUR ---
NURSE NOTES: Patient in bed ,awake, alert. IV dislodged, unable to insert. IV medications on hold. Charge nurse made aware.
--- NOTE | 2018-09-21 07:28 | NUR ---
NURSE NOTES: Patient received sleeping in bed, finished eating breakfast. Breathing is unlabored on room air, no signs of respiratory distress observed. No signs of pain observed. Kelley catheter is patent and intact. IV site dislodged per material handler 2nd shift report. RN to inform MD. Bed locked in lowest position, call light placed within reach. Will continue to monitor.
--- NOTE | 2018-09-21 07:36 | NUR ---
HAND-OFF: Report given to ADRIANNA Lynn.
[2018-09-21 08:00] VITALS: BP 118/76
[2018-09-21] MEDS ORDERED: Lidocaine 1% Plain 30 ml INJ PRN (08:00)
[2018-09-21] MEDS ORDERED: Heparin1,000 units/500ml Premix(Conc:2 units/ml) IV PRN (08:00)
[2018-09-21] MEDS: DULoxetine 30mg cap ORAL SCH (08:17)
[2018-09-21] MEDS: Naloxegol Oxalate 25mg tab ORAL SCH (08:17)
[2018-09-21] MEDS: HYDROcodone/Acetamin 10/325 tab ORAL PRN (08:17)
[2018-09-21] MEDS: Dakin's 0.125% Soln (Quarter Strength) 16oz TOPIC SCH (08:18)
[2018-09-21] MEDS: Heparin 5000 units/ml inj SUBQ SCH ×2 (08:20→21:25)
[2018-09-21] MEDS: Ascorbic Acid 500mg tab ORAL SCH (08:21)
[2018-09-21] MEDS: Multivitamin w/Minerals tab ORAL SCH (08:21)
[2018-09-21] MEDS: Docusate 100mg cap ORAL SCH ×2 (08:21→17:19)
[2018-09-21] MEDS: Lactulose 20gm/30ml UDC ORAL SCH (08:21)
[2018-09-21] MEDS: Zinc Sulfate 220mg cap ORAL SCH (08:21)
[2018-09-21] MEDS ORDERED: Lidocaine 1% Plain 30 ml INJ SCH (11:45)
[2018-09-21] MEDS ORDERED: Heparin1,000 units/500ml Premix(Conc:2 units/ml) IV SCH (11:45)
[2018-09-21 11:51] VITALS: BP 131/84
--- NOTE | 2018-09-21 11:52 | Hematology/Onc Progress Note ---
Assessment/Plan Assessment/Plan Assessment and Recs: # Thrombocytosis - likely related to reactive process (and/or underlying infection) underlying ischium infection --> Continue to monitor for improvement --> Trend plts as needed 551k --> If continues to be elevated, trend as needed --> Smear reviewed and no abnormalities noted. *Under manual differential --> s/p debridement, and biopsy of bone does show osteomyelitis as suspected per id # Hyperproteinemia with decreased albumin -- this is a dissociation that is abnormal, potentially related to inflammation --> spep and upep have been reviewed --> biopsy of bone doesn't show myeloma, shows osteomyelitis # Leukocytosis is likely due to ischium infection/sacral decub --> WBC is currently resolved --> surgery and Id consulted, appreciate recs --> debridement as per surgery --> on abx --> Wound cx++ # Anemia of chronic disease --> hold off further w/u unless hgb less than 10 --> trend as needed # Full thickness pressure injury to L ischium with acute infection --> debridement per sx and shows osteomyelitis --> ID and surg f/u on abx # Paraplegia # Chronic indwelling Tim catheter # UTI due to chronic tim # Chronic constipation # Protein calorie malnutrition The timing of this note does not necessarily reflect the time of the patient was seen. Greatly appreciate consultation! Subjective Allergies: Coded Allergies: MORPHINE (Verified Allergy, Unknown, 09/17/18) All Systems: reviewed and negative except above Subjective 09/19: no events, no fevers or chills reported, no night sweats, s/p debridement , seen by id 09/20: getting PT today, no events, less pain, recovering from surgery. 09/21: Pt examined at bedside, finished eating breakfast. Breathing is unlabored on room air, no signs of respiratory distress observed. No acute events. Objective Objective Current Medications Medications (Trade) Dose Ordered Sig/Constantin Route PRN Reason Start Time Stop Time Status Last Admin Dose Admin Acetaminophen (Tylenol) 650 mg Q4H PRN ORAL T>100.5 09/19/18 16:15 10/17/18 17:29 Acetaminophen/ Hydrocodone Bitart ([place] 10/325) 1 tab Q4H PRN ORAL moderate pain 09/19/18 16:15 09/26/18 15:59 09/21/18 08:17 Acetaminophen/ Hydrocodone Bitart ([place] 5/325) 1 tab Q4H PRN ORAL mild pain 09/19/18 16:15 09/25/18 14:59 Al Hydroxide/Mg Hydroxide (Mylanta) 15 ml Q6H PRN ORAL DYSPEPSIA 09/18/18 14:30 10/18/18 14:29 Ascorbic Acid (Vitamin C) 500 mg DAILY ORAL 09/18/18 09:00 10/18/18 08:59 Carisoprodol (Soma) 350 mg Q8H PRN ORAL muscle spasms 09/17/18 20:06 10/17/18 20:05 09/19/18 18:11 Chlorhexidine Gluconate (Fifi-Hex 2%) 1 applic DAILY@2000 TOPIC 09/21/18 20:00 10/21/18 19:59 UNV Dextrose (Dextrose 50%) 25 ml Q30M PRN IV Hypoglycemia 09/17/18 17:30 10/17/18 17:29 Dextrose (Dextrose 50%) 50 ml Q30M PRN IV Hypoglycemia 09/17/18 17:30 10/17/18 17:29 Diphenhydramine HCl (Benadryl) 25 mg Q8H PRN ORAL Itching/Pruritis 09/18/18 14:30 10/18/18 14:29 Docusate Sodium (Colace) 100 mg TWICE A DAY ORAL 09/18/18 18:00 10/18/18 17:59 Duloxetine HCl (Cymbalta) 30 mg DAILY ORAL 09/18/18 09:00 10/18/18 08:59 09/21/18 08:17 Heparin Sodium (Porcine) (Heparin 5000 units/ml) 5,000 units EVERY 12 HOURS SUBQ 09/17/18 21:00 10/17/18 20:59 09/20/18 21:04 Hydromorphone HCl (Dilaudid) 4 mg Q4H PRN ORAL Severe Pain (Pain Scale 7-10) 09/19/18 16:00 09/26/18 15:59 09/21/18 10:33 Lactulose (Cephulac) 20 gm DAILY ORAL 09/18/18 09:00 10/18/18 08:59 Lorazepam (Ativan) 1 mg Q4H PRN ORAL For Anxiety 09/17/18 17:43 09/24/18 17:42 Magnesium Hydroxide (Mom) 30 ml BIDPRN PRN ORAL Constipation 09/18/18 14:30 10/18/18 14:29 Multivitamins Therapeutic (Therapeutic Multivitamin) 1 ea DAILY ORAL 09/18/18 09:00 10/18/18 08:59 Naloxegol (Movantik) 25 mg DAILY ORAL 09/18/18 09:00 10/18/18 08:59 09/21/18 08:17 Ondansetron HCl (Zofran) 4 mg Q6H PRN IVP Nausea & Vomiting 09/18/18 14:30 10/18/18 14:29 09/19/18 10:07 Piperacillin Sod/ Tazobactam Sod 3.375 gm/Dextrose 100 ml @ 25 mls/hr EVERY 8 HOURS IVPB 09/17/18 23:00 09/22/18 22:59 09/21/18 05:07 Sodium Hypochlorite (Dakin's Quarter Strength) 1 applic DAILY TOPIC 09/18/18 09:00 10/18/18 08:59 09/21/18 08:18 Sodium Chloride 1,000 ml @ 75 mls/hr [id number] IV 09/17/18 21:00 10/17/18 20:59 09/21/18 05:07 Vancomycin HCl (Vanco rx to dose) 1 ea DAILY PRN MISC Per rx protocol 09/17/18 18:00 10/17/18 17:59 Vancomycin HCl/ Dextrose 275 ml @ 137.5 mls/ hr Q12HR@0000,1200 IVPB 09/19/18 12:00 09/24/18 11:59 09/21/18 01:18 Zinc Sulfate (Zinc Sulfate) 220 mg DAILY ORAL 09/18/18 09:00 10/18/18 08:59 Last 24 Hour Vital Signs Date Time Temp Pulse Resp B/P (MAP) Pulse Ox O2 Delivery O2 Flow Rate FiO2 09/21/18 09:00 Room Air 09/21/18 08:00 98.0 84 20 118/76 (90) 97 09/21/18 04:00 97.6 81 18 124/75 (91) 96 09/20/18 23:45 98.2 70 18 140/88 (105) 97 09/20/18 21:00 Room Air 09/20/18 20:00 97.4 77 18 134/80 (98) 99 09/20/18 16:00 97.2 75 20 121/72 (88) 98 09/20/18 12:00 98.2 80 20 114/80 (91) 97 09/20/18 09:00 Room Air 09/20/18 08:00 97.2 88 20 117/64 (81) 98 09/20/18 04:00 98.1 90 18 117/75 (89) 97 09/20/18 00:00 97.3 91 18 110/71 (84) 98 09/19/18 21:00 Room Air 09/19/18 20:00 97.2 93 18 119/76 (90) 97 09/19/18 16:00 97.5 79 19 111/69 (83) 99 09/19/18 12:00 98.3 80 19 119/72 (88) 99 Intake and Output 09/20/18 09/21/18 19:00 07:00 Intake Total 775 ml 400.0 ml Output Total 1600 ml 1200 ml Balance -825 ml -800.0 ml Intake Oral 700 ml IV Total 75 ml 400.0 ml Output Urine Total 1600 ml 1200 ml Labs Test 09/18/18 15:00 09/18/18 15:30 09/19/18 09:00 09/20/18 09:15 Total Protein (PEP) 8.2 g/dL (6.0-8.5) Albumin (PEP) 2.1 g/dL (2.9-4.4) Globulin (PEP) 6.1 g/dL (2.2-3.9) Albumin/Globulin Ratio 0.3 (0.7-1.7) Sniay-6-Lektgkdab 0.5 g/dL (0.0-0.4) Melnm-7-Aihjuqrzs 1.3 g/dL (0.4-1.0) Beta Globulins 1.8 g/dL (0.7-1.3) Beta Gamma Globulin 2.5 g/dL (0.4-1.8) PEP Abnormal Protein Bands Not observed g/dL (Not Protein Electrophoresis Interpret Comment (.) White Blood Count 8.6 K/UL (4.8-10.8) 8.0 K/UL (4.8-10.8) Red Blood Count 4.38 M/UL (4.70-6.10) 4.03 M/UL (4.70-6.10) Hemoglobin 11.5 G/DL (14.2-18.0) 10.7 G/DL (14.2-18.0) Hematocrit 36.3 % (42.0-52.0) 33.7 % (42.0-52.0) Mean Corpuscular Volume 83 FL (80-99) 84 FL (80-99) Mean Corpuscular Hemoglobin 26.2 PG (27.0-31.0) 26.6 PG (27.0-31.0) Mean Corpuscular Hemoglobin Concent 31.6 G/DL (32.0-36.0) 31.9 G/DL (32.0-36.0) Red Cell Distribution Width 13.1 % (11.6-14.8) 12.9 % (11.6-14.8) Platelet Count 598 K/UL (150-450) 551 K/UL (150-450) Mean Platelet Volume 4.7 FL (6.5-10.1) 4.5 FL (6.5-10.1) Neutrophils (%) (Auto) 54.1 % (45.0-75.0) 48.2 % (45.0-75.0) Lymphocytes (%) (Auto) 32.8 % (20.0-45.0) 37.7 % (20.0-45.0) Monocytes (%) (Auto) 7.4 % (1.0-10.0) 6.6 % (1.0-10.0) Eosinophils (%) (Auto) 4.2 % (0.0-3.0) 5.8 % (0.0-3.0) Basophils (%) (Auto) 1.5 % (0.0-2.0) 1.7 % (0.0-2.0) Sodium Level 143 MMOL/L (136-145) 142 MMOL/L (136-145) Potassium Level 3.8 MMOL/L (3.5-5.1) 3.6 MMOL/L (3.5-5.1) Chloride Level 106 MMOL/L (98-107) 106 MMOL/L (98-107) Carbon Dioxide Level 29 MMOL/L (21-32) 29 MMOL/L (21-32) Anion Gap 8 mmol/L (5-15) 7 mmol/L (5-15) Blood Urea Nitrogen 9 mg/dL (7-18) 5 mg/dL (7-18) Creatinine 1.2 MG/DL (0.55-1.30) 1.3 MG/DL (0.55-1.30) Estimat Glomerular Filtration Rate > 60 mL/min (>60) > 60 mL/min (>60) Glucose Level 149 MG/DL (74-106) 128 MG/DL (74-106) Calcium Level 9.1 MG/DL (8.5-10.1) 8.7 MG/DL (8.5-10.1) Vancomycin Level Trough 20.4 ug/mL (5.0-12.0) Height (Feet): 5 Height (Inches): 8.00 Weight (Pounds): 188 Objective General Appearance: no apparent distress, alert HEENT: atraumatic, anicteric Neck: normal alignment, normal inspection Respiratory/Chest: lungs clear, normal breath sounds, no respiratory distress Cardiovascular/Chest: normal rate, regular rhythm Abdomen: non tender, soft, no organomegaly Extremities: non-tender Neurologic: alert, oriented x 3, normal mood/affect Gene Higgins MD September 21, 2018 11:52
--- NOTE | 2018-09-21 12:02 | General Progress Note ---
Assessment/Plan Assessment/Plan: #Full thickness pressure injury to L ischium with acute infection #s/p Excisional debridement of left ischial decubitus ulcer and nonviable flap #Acute osteomyelitis #Leukocytosis #Paraplegia #Chronic indwelling Tim catheter #UTI due to chronic tim #Chronic constipation #Protein calorie malnutrition -continue inpatient level of care -Broad spectrum IV abx per Infectious Disease, will order PICC for 6 weeks abx -monitor CBC -Surgery following -Routine post-op care -Follow up urine cultures -continue outpatient pain regimen -Plan for skin grafting in the near future, spoke with Dr. Vail Subjective Date patient seen: September 21, 2018 Time patient seen: 11:13 Constitutional: Denies: chills, fever Cardiovascular: Denies: chest pain Respiratory: Denies: cough Gastrointestinal/Abdominal: Denies: abdominal pain Neurologic/Psychiatric: Denies: depressed Allergies: Coded Allergies: MORPHINE (Verified Allergy, Unknown, 09/17/18) Subjective Medicine follow up for infected left ischial ulcer, acute osteo underwent Excisional debridement of left ischial decubitus ulcer and nonviable flap 09/18 Objective Last 24 Hour Vital Signs Date Time Temp Pulse Resp B/P (MAP) Pulse Ox O2 Delivery O2 Flow Rate FiO2 09/21/18 11:51 97.9 75 20 131/84 (100) 96 09/21/18 09:00 Room Air 09/21/18 08:00 98.0 84 20 118/76 (90) 97 09/21/18 04:00 97.6 81 18 124/75 (91) 96 09/20/18 23:45 98.2 70 18 140/88 (105) 97 09/20/18 21:00 Room Air 09/20/18 20:00 97.4 77 18 134/80 (98) 99 09/20/18 16:00 97.2 75 20 121/72 (88) 98 09/20/18 12:00 98.2 80 20 114/80 (91) 97 Intake and Output 09/20/18 09/21/18 19:00 07:00 Intake Total 775 ml 400.0 ml Output Total 1600 ml 1200 ml Balance -825 ml -800.0 ml Intake Oral 700 ml IV Total 75 ml 400.0 ml Output Urine Total 1600 ml 1200 ml Height (Feet): 5 Height (Inches): 8.00 Weight (Pounds): 188 General Appearance: alert Cardiovascular: normal rate, regular rhythm Respiratory/Chest: lungs clear, normal breath sounds, no respiratory distress Abdomen: non tender, soft, no mass Serjio Easton MD September 21, 2018 12:02
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
--- NOTE | 2018-09-21 13:24 | Surgery Progress Note ---
Surgery Progress Note Subjective Procedure Performed excisional debridement of left ischial decubitus ulcer bone biopsy Symptoms: improved, tolerating diet, BM, pain decreased Additional Comments spoke with plastic surgery PICC Abx plan for flap vs graft in not too distant future. Objective Last 24 Hour Vital Signs Date Time Temp Pulse Resp B/P (MAP) Pulse Ox O2 Delivery O2 Flow Rate FiO2 09/21/18 11:51 97.9 75 20 131/84 (100) 96 09/21/18 09:00 Room Air 09/21/18 08:00 98.0 84 20 118/76 (90) 97 09/21/18 04:00 97.6 81 18 124/75 (91) 96 09/20/18 23:45 98.2 70 18 140/88 (105) 97 09/20/18 21:00 Room Air 09/20/18 20:00 97.4 77 18 134/80 (98) 99 09/20/18 16:00 97.2 75 20 121/72 (88) 98 I&O Intake and Output 09/20/18 09/21/18 19:00 07:00 Intake Total 775 ml 400.0 ml Output Total 1600 ml 1200 ml Balance -825 ml -800.0 ml Intake Oral 700 ml IV Total 75 ml 400.0 ml Output Urine Total 1600 ml 1200 ml Dressing: saturated Wound: clean Cardiovascular: RSR Respiratory: clear Abdomen: soft, non-tender, present bowel sounds Extremities: no cyanosis, other Plan Problems: (1) UTI (urinary tract infection) Assessment & Plan: IV Abx as per ID trend labs cont current care (2) Decubitus ulcers (3) Colostomy in place (4) Infected pressure ulcer Assessment & Plan: Pt presented on admission with full thickness pressure injury to L ischium. Base of wound has significantly deteriorated with near 100 % necrotic sloth,(+) maceration along borders. Small amt purulent exudate noted. foul odor noted. Periwound dark without erythema or induration. approximately (L)8cm x (W)5cm x (D)3+cm. DTPI noted to R trochanter.Base of wound with darker skin tone with fluctuance when minimally palpated.Periwound without erythema or induration. Partial thickness wound Dorsal L foot .Base of wound moist -viable.Edges darker but flat and adherent to base of wound. No odor or exudate noted. (L)4.8cm x (W) 0.8cm.Both heels are dry and blanchable. Historical scars noted to sacrum and R ischium s/p excisional debridement Tx.Plan: Cleanse L ischial wounds with Saline. Apply NS moist gauze .Apply Triad periwound. Cover with Optifoam drsg. Change TID and prn. Apply Cavilon Skin Barrier to R trochanter DTPI. Cover with Optifoam drsg. Change every 7 days and prn. Cleanse wound dorsum L foot. Apply Hydrogel. Apply Cavilon Skin Barrier periwound. Cover with Optifoam drsg. Change every 7 days and prn. APM/MARCI Mattress. Reposition at least every 2hours or as tolerated. Off-load heels with pillow. doing much better since debridement. wound much improved. Gaston Farah September 21, 2018 13:24
[2018-09-21 16:00] VITALS: BP 127/80
--- NOTE | 2018-09-21 16:07 | Diagnostic Imaging Report ---
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 The left upper extremity was prepped with alcohol. All elements of maximal sterile barrier technique were followed including usage of a cap, mask, sterile gown, sterile gloves, hand hygiene and a large sterile sheet. Sonographic evaluation of the upper extremity was performed demonstrating a patent and compressible brachial vein. Access was obtained under real-time ultrasound guidance (with utilization of sterile gel and sterile probe cover) and digital image was saved and archived. An .018 wire was introduced. Needle exchanged for a 5 Syrian peel-away sheath. Measurements were obtained. A 5 Syrian dual-lumen Power PICC line catheter was cut to 44 cm and introduced over the wire. Peel-away sheath and wire were removed.Catheter was secured to the skin using 2-0 Prolene suture. Both ports aspirate and flush easily. A single fluoroscopic image shows the distal tip in the superior vena cava. Fluoroscopic time 9 seconds Impression: Successful placement of an upper extremity PICC line catheter
--- NOTE | 2018-09-21 19:20 | NUR ---
HAND-OFF: Report given to Srinath RODAS.
--- NOTE | 2018-09-21 19:40 | NUR ---
NURSE NOTES: patient in bed, awake, alert and verbally responsive. Able to make needs known. Respiration is even and unlabored. Complained of generalized pain, will check pain medication as ordered. Skin is warm, noted with multiple dressings, intact. Kelley noted, with anchor. NOted with colostomy bag. Picc line noted on the left arm, iv fluid is infusing as ordered. Bed in low and locked position. Call light is at bedside. Will continue plan of care.
[2018-09-21 19:58] VITALS: BP 125/75
[2018-09-21] MEDS ORDERED: Dyna-Hex 2% Top Sol 2oz TOPIC SCH (20:00)
[2018-09-21] MEDS: Dyna-Hex 2% Top Sol 2oz TOPIC SCH (21:24)
--- NOTE | 2018-09-21 23:28 | NUR ---
NURSE NOTES: Lab drawn for vancomycin trough, sent to lab.
--- NOTE | 2018-09-21 23:35 | Neurology Progress Note ---
Interim History Interim History ROS Limited/Unobtainable: No Complaints: AMS/ Pain Events: This visit was performed on [address] Geovanni Norman Interim History Pain under control. Remains sleepy / tired Review of Systems All Systems: reviewed and negative except above Objective Physical Exam Last Vital Signs Date Time Temp Pulse Resp B/P (MAP) Pulse Ox O2 Delivery O2 Flow Rate FiO2 09/21/18 20:06 Room Air 09/21/18 19:58 98.9 66 20 125/75 (92) 90 09/18/18 14:17 3 Laboratory Tests Test 09/21/18 23:00 Vancomycin Level Trough Pending General: well developed, well nourished Head: normocophalic Neck: no rigidity EENT: benign Neurologic Exam Mental Status: awake, alert, oriented x4, normal cognition, good mathematical skills, normal recent memory, normal remote memory, preserved visuospatial function Speech: normal speech, no dysarthia Language: normal language, no aphasia Cranial Nerve II: fundus normal, visual bettencourt, no papilledema Cranial Nerves III, IV, : PERRLA, EOMI, pupils Cranial Nerve V: normal facial sensations, temporales function normal, masseters function normal, pterygoids function normal Cranial Nerve VII: no facial asymmetry, normal facial expressions Cranial Nerve VIII: normal hearing, no nystagmus Cranial Nerve IX: normal palate elevation, gag response Cranial Nerve X: no voice hoarseness Cranial Nerve XI: SCM symmetric, trapezii function normal Cranial Nerve XII: tongue midline, no tongue atrophy/fasciculations Motor System: normal muscle tone, strength 5/5, no involuntary movement, no muscle wasting Sensory: normal pinprick, normal light touch, normal position sense, normal graphesthesia Deep Tendon Reflexes: 0 knee (L), 0 knee (R), 0 ankle (L), 0 ankle (R); 1+ bicep (L), 1+ bicep (R), 1+ tricep (L), 1+ tricep (R), 1+ brachioradialis (L), 1 + brachioradialis (R) Reflexes: mute plantar (L), mute plantar (R) Objective Paraplegic at baseline with atrophy and contracture of lower extremities Alert and oriented upon exam with no focal weakness in upper extremities. Impression/Recommendations Problems: (1) Drug abuse (2) Colostomy in place (3) MDD (major depressive disorder), recurrent episode, moderate (4) Infected pressure ulcer (5) Colonoscopy planned (6) For toxicology of urine and eval for colonoscopy (7) Decubitus ulcers (8) Acute osteomyelitis (9) Acute encephalopathy Status: stable Recommendations Continue Q4 obs Pain management PT Eval as able Maintain normoglycemia and normothermia Laya Gruber N.P. September 21, 2018 23:35
--- NOTE | 2018-09-22 00:49 | NUR ---
NURSE NOTES: Spoke with pharmacy, vancomycin medication stopped, noted and carried out.
[2018-09-22 04:00] VITALS: BP 123/71
[2018-09-22] MEDS: HYDROmorphone 4mg tab ORAL PRN ×4 (04:34→20:16)
--- NOTE | 2018-09-22 04:38 | NUR ---
NURSE NOTES: Patient complained of pain, with scale 10/10, given PRN pain medication as ordered. Call light is at bedside. Will continue plan of care.
[2018-09-22 05:49] LABS: EOSINOPHILS % (AUTO) 5.1 % (0.0-3.0); HEMATOCRIT 35.7 % (42.0-52.0); HEMOGLOBIN 11.4 G/DL (14.2-18.0); LYMPHOCYTES % (AUTO) 36.8 % (20.0-45.0); MEAN CORPUSCULAR VOLUME 83 FL (80-99); MONOCYTES % (AUTO) 4.3 % (1.0-10.0); NEUTROPHILS % (AUTO) 52.9 % (45.0-75.0); PLATELET COUNT 524 K/UL (150-450); RED BLOOD COUNT 4.29 M/UL (4.70-6.10); RED CELL DISTRIBUTION WIDTH 12.7 % (11.6-14.8); WHITE BLOOD COUNT 9.6 K/UL (4.8-10.8)
[2018-09-22 06:08] LABS: ANION GAP 6 mmol/L (5-15); BLOOD UREA NITROGEN 8 mg/dL (7-18); CARBON DIOXIDE 31 MMOL/L (21-32); CHLORIDE 104 MMOL/L (98-107); CREATININE 1.3 MG/DL (0.55-1.30); SODIUM 141 MMOL/L (136-145)
--- NOTE | 2018-09-22 07:22 | NUR ---
HAND-OFF: Report given to David. RODAS.
--- NOTE | 2018-09-22 07:35 | NUR ---
NURSE NOTES: Received patient on bed, asleep. PICC line double lumen left arm intact and patent. Bed in low and locked position, call light in reach. No signs of respiratory distress. Room board updated, will continue to monitor.
[2018-09-22 08:00] VITALS: BP 109/69
[2018-09-22] MEDS: DULoxetine 30mg cap ORAL SCH ×2 (08:43→08:56)
[2018-09-22] MEDS: Lactulose 20gm/30ml UDC ORAL SCH ×2 (08:43→09:00)
[2018-09-22] MEDS: Zinc Sulfate 220mg cap ORAL SCH ×2 (08:43→09:00)
[2018-09-22] MEDS: Ascorbic Acid 500mg tab ORAL SCH ×2 (08:43→09:00)
[2018-09-22] MEDS: Docusate 100mg cap ORAL SCH ×2 (08:43→18:00)
[2018-09-22] MEDS: Naloxegol Oxalate 25mg tab ORAL SCH ×2 (08:43→09:00)
[2018-09-22] MEDS: Multivitamin w/Minerals tab ORAL SCH ×2 (08:43→09:00)
[2018-09-22] MEDS: Heparin 5000 units/ml inj SUBQ SCH ×2 (08:44→20:19)
--- NOTE | 2018-09-22 11:37 | NUR ---
NURSE NOTES: Patient refused scheduled 0900 medications except cymbalta. Risks versus benefits explained.
[2018-09-22 12:00] VITALS: BP 104/64
--- NOTE | 2018-09-22 13:50 | General Progress Note ---
Assessment/Plan Assessment/Plan: #Full thickness pressure injury to L ischium with acute infection #s/p Excisional debridement of left ischial decubitus ulcer and nonviable flap #Acute osteomyelitis #Leukocytosis #Paraplegia #Chronic indwelling Tim catheter #UTI due to chronic tim #Chronic constipation #Protein calorie malnutrition -continue inpatient level of care -Broad spectrum IV abx per Infectious Disease, PICC placed for 6 weeks antibiotic course -Surgery following -Routine post-op care -Follow up urine cultures -continue outpatient pain regimen -Plan for skin grafting in the near future, spoke with Dr. Vail Subjective Date patient seen: Sep 22, 2018 Time patient seen: 11:44 ROS Limited/Unobtainable: No Constitutional: Denies: chills, fever Cardiovascular: Denies: chest pain Respiratory: Denies: cough Gastrointestinal/Abdominal: Denies: abdomen distended, abdominal pain Allergies: Coded Allergies: MORPHINE (Verified Allergy, Unknown, 09/17/18) Subjective Medicine follow up for infected left ischial ulcer, acute osteo underwent Excisional debridement of left ischial decubitus ulcer and nonviable flap 09/18 PICC placed yesterday Objective Last 24 Hour Vital Signs Date Time Temp Pulse Resp B/P (MAP) Pulse Ox O2 Delivery O2 Flow Rate FiO2 09/22/18 09:00 Room Air 09/22/18 08:00 98.3 78 18 109/69 (82) 96 09/22/18 04:00 97.7 79 20 123/71 (88) 96 09/21/18 20:06 Room Air 09/21/18 19:58 98.9 66 20 125/75 (92) 90 09/21/18 16:00 98.1 78 20 127/80 (96) 97 Intake and Output 09/21/18 09/22/18 19:00 07:00 Intake Total 1035 ml 575 ml Output Total 500 ml Balance 1035 ml 75 ml Intake Oral 960 ml IV Total 75 ml 575 ml Output Urine Total 500 ml Laboratory Tests 09/21/18 23:00: Vancomycin Level Trough 31.2H 09/22/18 05:30: White Blood Count 9.6, Red Blood Count 4.29L, Hemoglobin 11.4L, Hematocrit 35.7L , Mean Corpuscular Volume 83, Mean Corpuscular Hemoglobin 26.6L, Mean Corpuscular Hemoglobin Concent 32.0, Red Cell Distribution Width 12.7, Platelet Count 524H, Mean Platelet Volume 4.5L, Neutrophils (%) (Auto) 52.9, Lymphocytes (%) (Auto) 36.8, Monocytes (%) (Auto) 4.3, Eosinophils (%) (Auto) 5.1H, Basophils (%) (Auto) 1.0, Sodium Level 141, Potassium Level 4.0, Chloride Level 104, Carbon Dioxide Level 31, Anion Gap 6, Blood Urea Nitrogen 8, Creatinine 1.3 , Estimat Glomerular Filtration Rate > 60, Glucose Level 112H, Calcium Level 9.0 Height (Feet): 5 Height (Inches): 8.00 Weight (Pounds): 188 General Appearance: alert Neck: normal alignment, normal inspection Cardiovascular: normal rate, regular rhythm Respiratory/Chest: lungs clear, normal breath sounds, no respiratory distress Abdomen: non tender, soft Serjio Easton MD Sep 22, 2018 13:50
--- NOTE | 2018-09-22 13:54 | Neurology Progress Note ---
Interim History Interim History ROS Limited/Unobtainable: No Complaints: No change in MS/ Exam Events: AMS Interim History This visit was performed on September 22, [address] Geovanni Norman. Objective Physical Exam Last Vital Signs Date Time Temp Pulse Resp B/P (MAP) Pulse Ox O2 Delivery O2 Flow Rate FiO2 09/22/18 09:00 Room Air 09/22/18 08:00 98.3 78 18 109/69 (82) 96 09/18/18 14:17 3 Laboratory Tests Test 09/21/18 23:00 09/22/18 05:30 Vancomycin Level Trough 31.2 ug/mL (5.0-12.0) H White Blood Count 9.6 K/UL (4.8-10.8) Red Blood Count 4.29 M/UL (4.70-6.10) L Hemoglobin 11.4 G/DL (14.2-18.0) L Hematocrit 35.7 % (42.0-52.0) L Mean Corpuscular Volume 83 FL (80-99) Mean Corpuscular Hemoglobin 26.6 PG (27.0-31.0) L Mean Corpuscular Hemoglobin Concent 32.0 G/DL (32.0-36.0) Red Cell Distribution Width 12.7 % (11.6-14.8) Platelet Count 524 K/UL (150-450) H Mean Platelet Volume 4.5 FL (6.5-10.1) L Neutrophils (%) (Auto) 52.9 % (45.0-75.0) Lymphocytes (%) (Auto) 36.8 % (20.0-45.0) Monocytes (%) (Auto) 4.3 % (1.0-10.0) Eosinophils (%) (Auto) 5.1 % (0.0-3.0) H Basophils (%) (Auto) 1.0 % (0.0-2.0) Sodium Level 141 MMOL/L (136-145) Potassium Level 4.0 MMOL/L (3.5-5.1) Chloride Level 104 MMOL/L (98-107) Carbon Dioxide Level 31 MMOL/L (21-32) Anion Gap 6 mmol/L (5-15) Blood Urea Nitrogen 8 mg/dL (7-18) Creatinine 1.3 MG/DL (0.55-1.30) Estimat Glomerular Filtration Rate > 60 mL/min (>60) Glucose Level 112 MG/DL (74-106) H Calcium Level 9.0 MG/DL (8.5-10.1) General: well developed, well nourished Head: normocophalic Neck: no rigidity EENT: benign Neurologic Exam Mental Status: awake, alert, oriented x4, normal cognition, good mathematical skills, normal recent memory, normal remote memory, preserved visuospatial function Speech: normal speech, no dysarthia Language: normal language, no aphasia Cranial Nerve II: fundus normal, visual bettencourt, no papilledema Cranial Nerves III, IV, : PERRLA, EOMI, pupils Cranial Nerve V: normal facial sensations, temporales function normal, masseters function normal, pterygoids function normal Cranial Nerve VII: no facial asymmetry, normal facial expressions Cranial Nerve VIII: normal hearing, no nystagmus Cranial Nerve IX: normal palate elevation, gag response Cranial Nerve X: no voice hoarseness Cranial Nerve XI: SCM symmetric, trapezii function normal Cranial Nerve XII: tongue midline, no tongue atrophy/fasciculations Motor System: normal muscle tone, strength 5/5, no involuntary movement, no muscle wasting Sensory: normal pinprick, normal light touch, normal position sense, normal graphesthesia Coordination: normal finger to nose bilaterally Deep Tendon Reflexes: 0 knee (L), 0 knee (R), 0 ankle (L), 0 ankle (R); 1+ bicep (L), 1+ bicep (R), 1+ tricep (L), 1+ tricep (R), 1+ brachioradialis (L), 1 + brachioradialis (R) Reflexes: mute plantar (L), mute plantar (R) Stance: normal Gait: stable, normal regular, heel + toe gait Objective Paraplegic at baseline with atrophy and contracture of lower extremities Alert and oriented upon exam with no focal weakness in upper extremities. Laya Gruber N.P. Sep 22, 2018 13:54
[2018-09-22] MEDS: Dakin's 0.125% Soln (Quarter Strength) 16oz TOPIC SCH (15:30)
--- NOTE | 2018-09-22 15:30 | NUR ---
NURSE NOTES: Colostomy bag changed. Patient tolerated well
[2018-09-22 16:00] VITALS: BP 113/75
--- NOTE | 2018-09-22 18:13 | NUR ---
NURSE NOTES: Patient refused scheduled colace dose. Risks versus benefits explained.
--- NOTE | 2018-09-22 18:14 | NUR ---
NURSE NOTES: PICC line dressing changed.
--- NOTE | 2018-09-22 19:16 | NUR ---
HAND-OFF: Report given to ADRIANNA Alfaro.
--- NOTE | 2018-09-22 19:52 | NUR ---
NURSE NOTES: PATIENT IN BED. ON RA, NO SOB, NO ACUTE DISTRESS. L PICC LINE INTACT, PATENT WITH DRY DSG RUNNING IVF. F/C INPLACE, PATENT DRAINING CLEAR YELLOWISH URINE BY GRAVITY. WOUND DRESSINGS INTACT AND DRY. BED IN LOWEST POSITION, LOCKED, ALARMS ON. CALL LIGHT IN REACH.
[2018-09-22 20:00] VITALS: BP 128/73
[2018-09-22] MEDS: Dyna-Hex 2% Top Sol 2oz TOPIC SCH (20:16)
[2018-09-23] VITALS: BP 140/74
[2018-09-23] MEDS: HYDROmorphone 4mg tab ORAL PRN ×5 (00:30→23:54)
[2018-09-23 04:00] VITALS: BP 136/72
--- NOTE | 2018-09-23 07:35 | NUR ---
NURSE NOTES: Received patient on bed, awake. Family at bedside. PICC line both lumes intact and patent. Dressings dry and intact. Kelley catheter intact, patent and draining. Bed in low and locked position, call light in reach. No signs of respiratory distress. Room board updated, will continue to monitor.
[2018-09-23 08:00] VITALS: BP 134/87
--- NOTE | 2018-09-23 08:45 | NUR ---
NURSE NOTES: Patient refused scheduled 0900 medications with the exception of heparin and cymbalta. Risks versus benefits explained.
[2018-09-23] MEDS: Zinc Sulfate 220mg cap ORAL SCH (09:00)
[2018-09-23] MEDS: Lactulose 20gm/30ml UDC ORAL SCH (09:00)
[2018-09-23] MEDS: Ascorbic Acid 500mg tab ORAL SCH (09:00)
[2018-09-23] MEDS: Docusate 100mg cap ORAL SCH ×2 (09:00→17:12)
[2018-09-23] MEDS: Naloxegol Oxalate 25mg tab ORAL SCH (09:00)
[2018-09-23] MEDS: Multivitamin w/Minerals tab ORAL SCH (09:00)
[2018-09-23] MEDS: DULoxetine 30mg cap ORAL SCH (09:56)
[2018-09-23] MEDS: Vancomycin 1gm/D5W 275ml IVPB SCH ×4 (09:56→20:32)
[2018-09-23] MEDS: Heparin 5000 units/ml inj SUBQ SCH ×2 (09:57→20:33)
[2018-09-23] MEDS: Dakin's 0.125% Soln (Quarter Strength) 16oz TOPIC SCH (09:58)
--- NOTE | 2018-09-23 10:00 | NUR ---
NURSE NOTES: Left ischial dressing changed. Patient tolerated well.
--- NOTE | 2018-09-23 10:53 | NUR ---
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
--- NOTE | 2018-09-23 11:13 | General Progress Note ---
Assessment/Plan Assessment/Plan: #Full thickness pressure injury to L ischium with acute infection #s/p Excisional debridement of left ischial decubitus ulcer and nonviable flap #Acute osteomyelitis #Leukocytosis #Paraplegia #Chronic indwelling Tim catheter #UTI due to chronic tim #Chronic constipation #Protein calorie malnutrition -continue inpatient level of care -Broad spectrum IV abx per Infectious Disease, PICC placed for 6 weeks antibiotic course. -Will discuss outpatient regimen with ID in preparation for discharge back to [facility] Monday -Surgery following -Routine post-op care -Follow up urine cultures -continue outpatient pain regimen -Plan for skin grafting in the near future, spoke with Dr. Vail Subjective Date patient seen: Sep 23, 2018 Time patient seen: 10:40 ROS Limited/Unobtainable: No Constitutional: Denies: chills, fever Cardiovascular: Denies: chest pain Respiratory: Denies: cough Gastrointestinal/Abdominal: Denies: abdomen distended, abdominal pain Allergies: Coded Allergies: MORPHINE (Verified Allergy, Unknown, 09/17/18) Subjective Medicine follow up for infected left ischial ulcer, acute osteo underwent Excisional debridement of left ischial decubitus ulcer and nonviable flap 09/18 No new complaints Objective Last 24 Hour Vital Signs Date Time Temp Pulse Resp B/P (MAP) Pulse Ox O2 Delivery O2 Flow Rate FiO2 09/23/18 09:00 Room Air 09/23/18 08:00 99.2 110 20 134/87 (103) 99 09/23/18 04:00 98.6 100 18 136/72 (93) 98 09/23/18 00:00 98.0 74 18 140/74 (96) 97 09/22/18 21:00 Room Air 09/22/18 20:00 98.4 86 19 128/73 (91) 100 09/22/18 16:00 97.7 79 18 113/75 (88) 96 09/22/18 12:00 97.9 71 18 104/64 (77) 96 Intake and Output 09/22/18 09/23/18 18:59 06:59 Intake Total 1860 ml 1300 ml Output Total 2000 ml 1600 ml Balance -140 ml -300 ml Intake Oral 960 ml 1200 ml IV Total 900 ml 100 ml Output Urine Total 2000 ml 1600 ml # Voids 2 # Bowel Movements 1 Laboratory Tests 09/23/18 05:15: Random Vancomycin Level 11.7 Height (Feet): 5 Height (Inches): 8.00 Weight (Pounds): 188 General Appearance: no apparent distress, alert Neck: normal alignment, supple Cardiovascular: normal rate, regular rhythm Respiratory/Chest: lungs clear, normal breath sounds Serjio Easton MD Sep 23, 2018 11:13
[2018-09-23 12:00] VITALS: BP 136/94
--- NOTE | 2018-09-23 12:54 | NUR ---
RD ASSESSMENT & RECOMMENDATIONS SEE CARE ACTIVITY FOR COMPLETE ASSESSMENT DAILY ESTIMATED NEEDS: Needs based on Wound, paraplegia 73.8kg adj 28-30 kcals/kg 9012-0766 total kcals 1.25-2 g protein/kg 92-148 g total protein 25-30 mL/kg 0765-2664 total fluid mLs NUTRITION DIAGNOSIS: Increased kcal and pro needs r/t wound healing as evidenced by pt w/ 'infected necrotic left ischial decubitus ulcer with nonviable prior flap' per MD, now s/p debridement. CURRENT DIET: Regular PO DIET RECOMMENDATIONS: REGULAR/ DOUBLE PROTEINS ADDITIONAL RECOMMENDATIONS: 1) Add Ensure x1 daily 2) Wound care: add ANAM BID 3) Obtain a calibrated bed scale wt w/ now added P200 mattress 4) Wound care, as tolerated: MVI x1 daily, Vit C 500mg BID ZnSo4 220mg daily x10 days
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
[2018-09-23 16:00] VITALS: BP 136/95
[2018-09-23] MEDS ORDERED: NS 275ml ONE (16:58)
[2018-09-23] MEDS ORDERED: Tubing IV Secondary IV ONE (16:58)
--- NOTE | 2018-09-23 19:51 | NUR ---
HAND-OFF: Report given to ADRIANNA Copeland.
--- NOTE | 2018-09-23 19:53 | NUR ---
NURSE NOTES: Received patient in bed, awake. Family, at bedside. PICC line both lumens intact and patent. Dressings dry and intact. Kelley catheter intact, patent and draining. Bed in locked, lowest position, side rails x2, call light in reach. No signs of respiratory distress. Room board updated, will continue to monitor.
[2018-09-23 20:00] VITALS: BP 125/88
[2018-09-23] MEDS: Dyna-Hex 2% Top Sol 2oz TOPIC SCH (20:32)
--- NOTE | 2018-09-23 23:46 | Neurology Progress Note ---
Interim History Interim History ROS Limited/Unobtainable: No Events: This visit was performed on September 23, 2018. Objective Physical Exam Last Vital Signs Date Time Temp Pulse Resp B/P (MAP) Pulse Ox O2 Delivery O2 Flow Rate FiO2 09/23/18 20:00 97.9 120 18 125/88 (100) 97 09/23/18 09:00 Room Air 09/18/18 14:17 3 Laboratory Tests Test 09/23/18 05:15 Random Vancomycin Level 11.7 ug/mL Laya Gruber N.P. Sep 23, 2018 23:46
[2018-09-24] VITALS (7 sets, daily range): BP systolic 105–152; BP diastolic 66–111
[2018-09-24] MEDS: HYDROmorphone 4mg tab ORAL PRN ×3 (04:39→20:23)
[2018-09-24 04:59] LABS: BASOPHILS % (AUTO) 1.6 % (0.0-2.0); HEMATOCRIT 30.5 % (42.0-52.0); HEMOGLOBIN 9.7 G/DL (14.2-18.0); LYMPHOCYTES % (AUTO) 36.6 % (20.0-45.0); MEAN CORPUSCULAR VOLUME 82 FL (80-99); NEUTROPHILS % (AUTO) 52.7 % (45.0-75.0); PLATELET COUNT 400 K/UL (150-450); RED BLOOD COUNT 3.71 M/UL (4.70-6.10); RED CELL DISTRIBUTION WIDTH 13.1 % (11.6-14.8); WHITE BLOOD COUNT 10.5 K/UL (4.8-10.8)
[2018-09-24 05:24] LABS: ANION GAP 6 mmol/L (5-15); BLOOD UREA NITROGEN 8 mg/dL (7-18); CARBON DIOXIDE 28 MMOL/L (21-32); CHLORIDE 106 MMOL/L (98-107); POTASSIUM 3.2 MMOL/L (3.5-5.1); SODIUM 140 MMOL/L (136-145)
--- NOTE | 2018-09-24 07:43 | NUR ---
HAND-OFF: Report given to ADRIANNA Lynn.
--- NOTE | 2018-09-24 07:44 | NUR ---
NURSE NOTES: Patient received resting in bed, at bedside. Alert and oriented, breathing unlabored on room air. Denies SOB or pain at this time. Fluids running at 75cc/hr with PICC line on left upper arm. Colostomy intact. Kelley catheter patent and intact, draining clear urine. Bed locked in lowest position, call light placed within reach. Will continue to monitor.
[2018-09-24] MEDS: Multivitamin w/Minerals tab ORAL SCH (09:00)
[2018-09-24] MEDS: Zinc Sulfate 220mg cap ORAL SCH (09:00)
[2018-09-24] MEDS: Docusate 100mg cap ORAL SCH ×2 (09:00→17:39)
[2018-09-24] MEDS: Lactulose 20gm/30ml UDC ORAL SCH (09:00)
[2018-09-24] MEDS: Ascorbic Acid 500mg tab ORAL SCH (09:00)
[2018-09-24] MEDS: DULoxetine 30mg cap ORAL SCH (09:22)
[2018-09-24] MEDS: Vancomycin 1gm/D5W 275ml IVPB SCH ×2 (09:22)
[2018-09-24] MEDS: Naloxegol Oxalate 25mg tab ORAL SCH (09:22)
[2018-09-24] MEDS: Heparin 5000 units/ml inj SUBQ SCH ×2 (09:58→20:20)
[2018-09-24] MEDS: Dakin's 0.125% Soln (Quarter Strength) 16oz TOPIC SCH (13:59)
--- NOTE | 2018-09-24 14:14 | General Progress Note ---
Assessment/Plan Assessment/Plan: #Full thickness pressure injury to L ischium with acute infection #s/p Excisional debridement of left ischial decubitus ulcer and nonviable flap #Acute osteomyelitis #Leukocytosis #Paraplegia #Chronic indwelling Tim catheter #UTI due to chronic tim #Chronic constipation #Protein calorie malnutrition -continue inpatient level of care -Broad spectrum IV abx per Infectious Disease, PICC placed for 6 weeks antibiotic course. -Surgery following -Routine post-op care -Follow up cultures -continue current pain regimen -Plan for skin grafting Monday by Dr. Vail Based on the patient's medical history, and other available ancillary data, the patient is a LOW risk for an INTERMEDIATE risk procedure. Per the most recent ACC/AHA guidelines, the patient does not need any further cardiopulmonary testing prior to the procedure and there do not appear to be any clear medical contraindications to proceeding with the proposed procedure. Perioperative recommendations include IV Ancef 1gIVPB production recorder to the OR. Post operative recommendations include: - Encourage mobilization/ambulation - Encourage incentive spirometry to optimize pulmonary hygiene - DVT/GI prophylaxis as appropriate - Pain control and supportive care Subjective Date patient seen: Sep 24, 2018 Time patient seen: 09:01 ROS Limited/Unobtainable: No Constitutional: Denies: fever Cardiovascular: Denies: chest pain Respiratory: Denies: cough Gastrointestinal/Abdominal: Denies: abdomen distended, abdominal pain Allergies: Coded Allergies: MORPHINE (Verified Allergy, Unknown, 09/17/18) Subjective Medicine follow up for infected left ischial ulcer, acute osteo underwent Excisional debridement of left ischial decubitus ulcer and nonviable flap 09/18 No new complaints He has had multiple previous surgeries in the past, some with general anesthesia and has never had any complications, including from a cardiac and pulmonary standpoint. The patient denies hx of VT/CHF/CAD/PVD/CVA/DM/HTN. Patient denies any exertional chest pain or dyspnea. No PND/orthopnea, no LE edema. Objective Last 24 Hour Vital Signs Date Time Temp Pulse Resp B/P (MAP) Pulse Ox O2 Delivery O2 Flow Rate FiO2 09/24/18 12:00 98.2 97 20 152/111 (125) 100 09/24/18 09:00 Room Air 09/24/18 08:00 98.0 86 20 152/98 (116) 100 09/24/18 05:09 97.9 09/24/18 04:00 96.4 92 18 124/80 (95) 96 09/24/18 00:00 97.6 90 18 130/66 (87) 98 09/23/18 21:00 Room Air 09/23/18 20:00 97.9 120 18 125/88 (100) 97 09/23/18 16:00 98.6 108 20 136/95 (109) 96 Intake and Output 09/23/18 09/24/18 18:59 06:59 Intake Total 1600.000 ml Output Total 3300 ml 1900 ml Balance -1700.000 ml -1900 ml Intake Oral 900 ml IV Total 700.000 ml Output Urine Total 3300 ml 1900 ml # Voids 3 # Bowel Movements 1 Laboratory Tests 09/24/18 04:40: White Blood Count 10.5, Red Blood Count 3.71L, Hemoglobin 9.7L, Hematocrit 30.5L , Mean Corpuscular Volume 82, Mean Corpuscular Hemoglobin 26.1L, Mean Corpuscular Hemoglobin Concent 31.8L, Red Cell Distribution Width 13.1, Platelet Count 400, Mean Platelet Volume 4.7L, Neutrophils (%) (Auto) 52.7, Lymphocytes (%) (Auto) 36.6, Monocytes (%) (Auto) 5.0, Eosinophils (%) (Auto) 4.0H, Basophils (%) (Auto) 1.6, Sodium Level 140, Potassium Level 3.2L, Chloride Level 106, Carbon Dioxide Level 28, Anion Gap 6, Blood Urea Nitrogen 8 , Creatinine 1.0, Estimat Glomerular Filtration Rate > 60, Glucose Level 117H, Calcium Level 8.0L Height (Feet): 5 Height (Inches): 8.00 Weight (Pounds): 188 General Appearance: no apparent distress, alert Neck: supple Cardiovascular: normal rate, regular rhythm Respiratory/Chest: lungs clear, normal breath sounds, no respiratory distress Abdomen: non tender, soft Serjio Easton MD Sep 24, 2018 14:14
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
--- NOTE | 2018-09-24 18:37 | Hematology/Onc Progress Note ---
Assessment/Plan Assessment/Plan Assessment and Recs: # Thrombocytosis - likely related to reactive process (and/or underlying infection) underlying ischium infection --> Continue to monitor for improvement --> plt trend: 551k-->524k-->400k --> If continues to be elevated, trend as needed --> Smear reviewed and no abnormalities noted. *Under manual differential --> s/p debridement, and biopsy of bone does show osteomyelitis as suspected per id # Hyperproteinemia with decreased albumin -- this is a dissociation that is abnormal, potentially related to inflammation --> spep and upep have been reviewed --> biopsy of bone doesn't show myeloma, shows osteomyelitis # Leukocytosis is likely due to ischium infection/sacral decub --> WBC is currently resolved --> surgery and Id consulted, appreciate recs --> debridement as per surgery --> on abx --> Wound cx++ # Anemia of chronic disease --> hold off further w/u unless hgb less than 10 --> trend as needed # Full thickness pressure injury to L ischium with acute infection --> debridement per sx and shows osteomyelitis --> ID and surg f/u on abx # Paraplegia # Chronic indwelling Tim catheter # UTI due to chronic tim # Chronic constipation # Protein calorie malnutrition The timing of this note does not necessarily reflect the time of the patient was seen. Greatly appreciate consultation! Subjective Allergies: Coded Allergies: MORPHINE (Verified Allergy, Unknown, 09/17/18) Subjective 09/19: no events, no fevers or chills reported, no night sweats, s/p debridement , seen by id 09/20: getting PT today, no events, less pain, recovering from surgery. 09/21: Pt examined at bedside, finished eating breakfast. Breathing is unlabored on room air, no signs of respiratory distress observed. No acute events. 09/23: Pt awake and alert. No signs of distress, family at bedside. 09/24: Pt resting in bed, Alert and oriented, no signs of SOB or pain Objective Objective Current Medications Medications (Trade) Dose Ordered Sig/Constantin Route PRN Reason Start Time Stop Time Status Last Admin Dose Admin Acetaminophen (Tylenol) 650 mg Q4H PRN ORAL T>100.5 09/19/18 16:15 10/17/18 17:29 Acetaminophen/ Hydrocodone Bitart ([place] 10/325) 1 tab Q4H PRN ORAL moderate pain 09/19/18 16:15 09/26/18 15:59 09/21/18 08:17 Acetaminophen/ Hydrocodone Bitart ([place] 5/325) 1 tab Q4H PRN ORAL mild pain 09/19/18 16:15 09/25/18 14:59 Al Hydroxide/Mg Hydroxide (Mylanta) 15 ml Q6H PRN ORAL DYSPEPSIA 09/18/18 14:30 10/18/18 14:29 Ascorbic Acid (Vitamin C) 500 mg DAILY ORAL 09/18/18 09:00 10/18/18 08:59 Carisoprodol (Soma) 350 mg Q8H PRN ORAL muscle spasms 09/17/18 20:06 10/17/18 20:05 09/21/18 23:09 Carisoprodol (Soma) 350 mg THREE TIMES A DAY ORAL 09/22/18 14:00 10/22/18 13:59 09/24/18 17:39 Chlorhexidine Gluconate (Fifi-Hex 2%) 1 applic DAILY@2000 TOPIC 09/21/18 20:00 10/21/18 19:59 09/23/18 20:32 Dextrose (Dextrose 50%) 25 ml Q30M PRN IV Hypoglycemia 09/17/18 17:30 10/17/18 17:29 Dextrose (Dextrose 50%) 50 ml Q30M PRN IV Hypoglycemia 09/17/18 17:30 10/17/18 17:29 Diphenhydramine HCl (Benadryl) 25 mg Q8H PRN ORAL Itching/Pruritis 09/18/18 14:30 10/18/18 14:29 Docusate Sodium (Colace) 100 mg TWICE A DAY ORAL 09/18/18 18:00 10/18/18 17:59 09/24/18 17:39 Duloxetine HCl (Cymbalta) 30 mg DAILY ORAL 09/18/18 09:00 10/18/18 08:59 09/24/18 09:22 Ertapenem 1 gm/ Sodium Chloride 50 ml @ 100 mls/hr Q24H IVPB 09/23/18 16:00 09/28/18 15:59 09/24/18 16:13 Heparin Sodium (Porcine) (Heparin 5000 units/ml) 5,000 units EVERY 12 HOURS SUBQ 09/17/18 21:00 10/17/18 20:59 09/24/18 09:58 Hydromorphone HCl (Dilaudid) 4 mg Q4H PRN ORAL Severe Pain (Pain Scale 7-10) 09/19/18 16:00 09/26/18 15:59 09/24/18 09:22 Lactulose (Cephulac) 20 gm DAILY ORAL 09/18/18 09:00 10/18/18 08:59 Magnesium Hydroxide (Mom) 30 ml BIDPRN PRN ORAL Constipation 09/18/18 14:30 10/18/18 14:29 Multivitamins Therapeutic (Therapeutic Multivitamin) 1 ea DAILY ORAL 09/18/18 09:00 10/18/18 08:59 Naloxegol (Movantik) 25 mg DAILY ORAL 09/18/18 09:00 10/18/18 08:59 09/24/18 09:22 Ondansetron HCl (Zofran) 4 mg Q6H PRN IVP Nausea & Vomiting 09/18/18 14:30 10/18/18 14:29 09/19/18 10:07 Sodium Hypochlorite (Dakin's Quarter Strength) 1 applic DAILY TOPIC 09/18/18 09:00 10/18/18 08:59 09/24/18 13:59 Sodium Chloride 1,000 ml @ 75 mls/hr [id number] IV 09/17/18 21:00 10/17/18 20:59 09/23/18 23:54 Vancomycin HCl (Vanco rx to dose) 1 ea DAILY PRN MISC Per rx protocol 09/17/18 18:00 10/17/18 17:59 Vancomycin HCl 1 gm/Dextrose 275 ml @ 183.708 mls/hr Q12HR IVPB 09/23/18 09:00 09/28/18 08:59 09/24/18 09:22 Zinc Sulfate (Zinc Sulfate) 220 mg DAILY ORAL 09/18/18 09:00 10/18/18 08:59 Last 24 Hour Vital Signs Date Time Temp Pulse Resp B/P (MAP) Pulse Ox O2 Delivery O2 Flow Rate FiO2 09/24/18 16:00 97.7 94 20 105/88 (94) 99 09/24/18 12:00 98.2 97 20 152/111 (125) 100 09/24/18 09:00 Room Air 09/24/18 08:00 98.0 86 20 152/98 (116) 100 09/24/18 05:09 97.9 09/24/18 04:00 96.4 92 18 124/80 (95) 96 09/24/18 00:00 97.6 90 18 130/66 (87) 98 09/23/18 21:00 Room Air 09/23/18 20:00 97.9 120 18 125/88 (100) 97 09/23/18 16:00 98.6 108 20 136/95 (109) 96 09/23/18 12:00 97.8 114 20 136/94 (108) 98 09/23/18 09:00 Room Air 09/23/18 08:00 99.2 110 20 134/87 (103) 99 09/23/18 04:00 98.6 100 18 136/72 (93) 98 09/23/18 00:00 98.0 74 18 140/74 (96) 97 09/22/18 21:00 Room Air 09/22/18 20:00 98.4 86 19 128/73 (91) 100 Intake and Output 09/23/18 09/24/18 19:00 07:00 Intake Total 1600.000 ml Output Total 3300 ml 1900 ml Balance -1700.000 ml -1900 ml Intake Oral 900 ml IV Total 700.000 ml Output Urine Total 3300 ml 1900 ml # Voids 3 # Bowel Movements 1 Labs Test 09/21/18 23:00 09/22/18 05:30 09/23/18 05:15 09/24/18 04:40 Vancomycin Level Trough 31.2 ug/mL (5.0-12.0) White Blood Count 9.6 K/UL (4.8-10.8) 10.5 K/UL (4.8-10.8) Red Blood Count 4.29 M/UL (4.70-6.10) 3.71 M/UL (4.70-6.10) Hemoglobin 11.4 G/DL (14.2-18.0) 9.7 G/DL (14.2-18.0) Hematocrit 35.7 % (42.0-52.0) 30.5 % (42.0-52.0) Mean Corpuscular Volume 83 FL (80-99) 82 FL (80-99) Mean Corpuscular Hemoglobin 26.6 PG (27.0-31.0) 26.1 PG (27.0-31.0) Mean Corpuscular Hemoglobin Concent 32.0 G/DL (32.0-36.0) 31.8 G/DL (32.0-36.0) Red Cell Distribution Width 12.7 % (11.6-14.8) 13.1 % (11.6-14.8) Platelet Count 524 K/UL (150-450) 400 K/UL (150-450) Mean Platelet Volume 4.5 FL (6.5-10.1) 4.7 FL (6.5-10.1) Neutrophils (%) (Auto) 52.9 % (45.0-75.0) 52.7 % (45.0-75.0) Lymphocytes (%) (Auto) 36.8 % (20.0-45.0) 36.6 % (20.0-45.0) Monocytes (%) (Auto) 4.3 % (1.0-10.0) 5.0 % (1.0-10.0) Eosinophils (%) (Auto) 5.1 % (0.0-3.0) 4.0 % (0.0-3.0) Basophils (%) (Auto) 1.0 % (0.0-2.0) 1.6 % (0.0-2.0) Sodium Level 141 MMOL/L (136-145) 140 MMOL/L (136-145) Potassium Level 4.0 MMOL/L (3.5-5.1) 3.2 MMOL/L (3.5-5.1) Chloride Level 104 MMOL/L (98-107) 106 MMOL/L (98-107) Carbon Dioxide Level 31 MMOL/L (21-32) 28 MMOL/L (21-32) Anion Gap 6 mmol/L (5-15) 6 mmol/L (5-15) Blood Urea Nitrogen 8 mg/dL (7-18) 8 mg/dL (7-18) Creatinine 1.3 MG/DL (0.55-1.30) 1.0 MG/DL (0.55-1.30) Estimat Glomerular Filtration Rate > 60 mL/min (>60) > 60 mL/min (>60) Glucose Level 112 MG/DL (74-106) 117 MG/DL (74-106) Calcium Level 9.0 MG/DL (8.5-10.1) 8.0 MG/DL (8.5-10.1) Random Vancomycin Level 11.7 ug/mL Height (Feet): 5 Height (Inches): 8.00 Weight (Pounds): 188 Objective General Appearance: no apparent distress, alert HEENT: atraumatic, anicteric Neck: normal alignment, normal inspection Respiratory/Chest: lungs clear, normal breath sounds, no respiratory distress Cardiovascular/Chest: normal rate, regular rhythm Abdomen: non tender, soft, no organomegaly Extremities: non-tender, sacral wound+ Neurologic: alert, oriented x 3, normal mood/affect Gene Higgins MD Sep 24, 2018 18:37
--- NOTE | 2018-09-24 19:36 | NUR ---
HAND-OFF: Report given to Main RODAS.
--- NOTE | 2018-09-24 19:58 | NUR ---
NURSE NOTES: Received patient awake,alert,verbal,resting on bed,no complaints.
[2018-09-24] MEDS: Dyna-Hex 2% Top Sol 2oz TOPIC SCH (20:19)
[2018-09-24] MEDS ORDERED: Vancomycin 1.5gm Premix IVPB ONE (21:00)
--- NOTE | 2018-09-24 23:56 | Neurology Progress Note ---
Interim History Interim History ROS Limited/Unobtainable: No Events: This visit was performed on September 24, 2018. Objective Physical Exam Last Vital Signs Date Time Temp Pulse Resp B/P (MAP) Pulse Ox O2 Delivery O2 Flow Rate FiO2 09/24/18 21:04 Room Air 09/24/18 20:53 98.2 09/24/18 20:08 117 19 130/92 (105) 97 09/18/18 14:17 3 Laboratory Tests Test 09/24/18 04:40 09/24/18 19:22 White Blood Count 10.5 K/UL (4.8-10.8) Red Blood Count 3.71 M/UL (4.70-6.10) L Hemoglobin 9.7 G/DL (14.2-18.0) L Hematocrit 30.5 % (42.0-52.0) L Mean Corpuscular Volume 82 FL (80-99) Mean Corpuscular Hemoglobin 26.1 PG (27.0-31.0) L Mean Corpuscular Hemoglobin Concent 31.8 G/DL (32.0-36.0) L Red Cell Distribution Width 13.1 % (11.6-14.8) Platelet Count 400 K/UL (150-450) Mean Platelet Volume 4.7 FL (6.5-10.1) L Neutrophils (%) (Auto) 52.7 % (45.0-75.0) Lymphocytes (%) (Auto) 36.6 % (20.0-45.0) Monocytes (%) (Auto) 5.0 % (1.0-10.0) Eosinophils (%) (Auto) 4.0 % (0.0-3.0) H Basophils (%) (Auto) 1.6 % (0.0-2.0) Sodium Level 140 MMOL/L (136-145) Potassium Level 3.2 MMOL/L (3.5-5.1) L Chloride Level 106 MMOL/L (98-107) Carbon Dioxide Level 28 MMOL/L (21-32) Anion Gap 6 mmol/L (5-15) Blood Urea Nitrogen 8 mg/dL (7-18) Creatinine 1.0 MG/DL (0.55-1.30) Estimat Glomerular Filtration Rate > 60 mL/min (>60) Glucose Level 117 MG/DL (74-106) H Calcium Level 8.0 MG/DL (8.5-10.1) L Vancomycin Level Trough 10.1 ug/mL (5.0-12.0) Laya Gruber N.P. Sep 24, 2018 23:56
[2018-09-25 04:19] VITALS: BP 126/78
--- NOTE | 2018-09-25 07:44 | NUR ---
HAND-OFF: Report given to Suleiman Solo RN.
[2018-09-25 08:00] VITALS: BP 110/64
--- NOTE | 2018-09-25 08:10 | NUR ---
NURSE NOTES: pt in bed with no sob nor in any form of distress noted. Breathing regular and unlabored. denies any pain at this time. family member at bed side. bed in lowest position. call light within reach. will continue to monitor.
[2018-09-25] MEDS: Multivitamin w/Minerals tab ORAL SCH ×2 (08:56→09:00)
[2018-09-25] MEDS: DULoxetine 30mg cap ORAL SCH (08:56)
[2018-09-25] MEDS: Zinc Sulfate 220mg cap ORAL SCH ×2 (08:56→09:00)
[2018-09-25] MEDS: Lactulose 20gm/30ml UDC ORAL SCH (08:57)
[2018-09-25] MEDS: Docusate 100mg cap ORAL SCH ×2 (08:57→17:57)
[2018-09-25] MEDS: Naloxegol Oxalate 25mg tab ORAL SCH ×2 (08:57→09:00)
[2018-09-25] MEDS: Ascorbic Acid 500mg tab ORAL SCH ×2 (08:57→09:00)
[2018-09-25] MEDS: Heparin 5000 units/ml inj SUBQ SCH ×2 (08:59→20:51)
[2018-09-25] MEDS: Dakin's 0.125% Soln (Quarter Strength) 16oz TOPIC SCH (09:03)
[2018-09-25] MEDS: Vancomycin 1.25gm Premix IVPB SCH ×2 (09:04→20:52)
[2018-09-25] MEDS: HYDROmorphone 4mg tab ORAL PRN ×2 (09:29→20:54)
[2018-09-25 12:00] VITALS: BP 127/78
--- NOTE | 2018-09-25 13:01 | General Progress Note ---
Assessment/Plan Assessment/Plan: #Full thickness pressure injury to L ischium with acute infection #s/p Excisional debridement of left ischial decubitus ulcer and nonviable flap #Acute osteomyelitis #Leukocytosis #Paraplegia #Chronic indwelling Tim catheter #UTI due to chronic tim #Chronic constipation #Protein calorie malnutrition -continue inpatient level of care -Broad spectrum IV abx per Infectious Disease, PICC placed for 6 weeks antibiotic course. -Surgery following -Routine post-op care -Follow up cultures -continue current pain regimen -Plan for skin grafting Monday by Dr. Vail Based on the patient's medical history, and other available ancillary data, the patient is a LOW risk for an INTERMEDIATE risk procedure. Per the most recent ACC/AHA guidelines, the patient does not need any further cardiopulmonary testing prior to the procedure and there do not appear to be any clear medical contraindications to proceeding with the proposed procedure. Perioperative recommendations include IV Ancef 1gIVPB pet food deboner to the OR. Post operative recommendations include: - Encourage mobilization/ambulation - Encourage incentive spirometry to optimize pulmonary hygiene - DVT/GI prophylaxis as appropriate - Pain control and supportive care Subjective Date patient seen: Sep 25, 2018 Time patient seen: 08:10 ROS Limited/Unobtainable: No Cardiovascular: Denies: chest pain Respiratory: Denies: cough Gastrointestinal/Abdominal: Denies: abdomen distended Neurologic/Psychiatric: Denies: anxiety Allergies: Coded Allergies: MORPHINE (Verified Allergy, Unknown, 09/17/18) Subjective Medicine follow up for infected left ischial ulcer, acute osteo underwent Excisional debridement of left ischial decubitus ulcer and nonviable flap 09/18 No new complaints today Objective Last 24 Hour Vital Signs Date Time Temp Pulse Resp B/P (MAP) Pulse Ox O2 Delivery O2 Flow Rate FiO2 09/25/18 12:00 98.6 104 20 127/78 (94) 98 09/25/18 09:59 97.9 09/25/18 09:45 Room Air 09/25/18 08:00 98.2 112 20 110/64 (79) 98 09/25/18 04:19 97.9 102 20 126/78 (94) 98 09/24/18 23:58 97.0 94 18 117/88 (98) 96 09/24/18 21:04 Room Air 09/24/18 20:08 98.2 117 19 130/92 (105) 97 09/24/18 16:00 97.7 94 20 105/88 (94) 99 Intake and Output 09/24/18 09/25/18 19:00 07:00 Intake Total 825 ml 1860.0 ml Output Total 800 ml 1101 ml Balance 25 ml 759.0 ml Intake Oral 750 ml 760 ml IV Total 75 ml 1100.0 ml Output Urine Total 800 ml 1100 ml Stool Total 1 ml # Voids 1 # Bowel Movements 1 Laboratory Tests 09/24/18 19:22: Vancomycin Level Trough 10.1 Height (Feet): 5 Height (Inches): 8.00 Weight (Pounds): 188 General Appearance: no apparent distress, alert Neck: normal alignment, supple Cardiovascular: normal rate, regular rhythm Respiratory/Chest: lungs clear, normal breath sounds, no respiratory distress Abdomen: non tender, soft Serjio Easton MD Sep 25, 2018 13:01
--- NOTE | 2018-09-25 14:44 | Hematology/Onc Progress Note ---
Assessment/Plan Assessment/Plan Assessment and Recs: # Thrombocytosis - likely related to reactive process (and/or underlying infection) underlying ischium infection --> Continue to monitor for improvement --> plt trend: 551k-->524k-->400k --> If continues to be elevated, trend as needed --> Smear reviewed and no abnormalities noted. *Under manual differential --> s/p debridement, and biopsy of bone does show osteomyelitis as suspected per id # Hyperproteinemia with decreased albumin -- this is a dissociation that is abnormal, potentially related to inflammation --> spep and upep have been reviewed --> biopsy of bone doesn't show myeloma, shows osteomyelitis # Leukocytosis is likely due to ischium infection/sacral decub --> WBC is currently resolved --> surgery and Id consulted, appreciate recs --> debridement as per surgery --> on abx --> Wound cx++ # Anemia of chronic disease --> hold off further w/u unless hgb less than 10 --> trend as needed # Full thickness pressure injury to L ischium with acute infection --> debridement per sx and shows osteomyelitis --> ID and surg f/u on abx # Paraplegia # Chronic indwelling Tim catheter # UTI due to chronic tim # Chronic constipation # Protein calorie malnutrition The timing of this note does not necessarily reflect the time of the patient was seen. Greatly appreciate consultation! Subjective Allergies: Coded Allergies: MORPHINE (Verified Allergy, Unknown, 09/17/18) All Systems: reviewed and negative except above Subjective 09/19: no events, no fevers or chills reported, no night sweats, s/p debridement , seen by id 09/20: getting PT today, no events, less pain, recovering from surgery. 09/21: Pt examined at bedside, finished eating breakfast. Breathing is unlabored on room air, no signs of respiratory distress observed. No acute events. 09/23: Pt awake and alert. No signs of distress, family at bedside. 09/24: Pt resting in bed, Alert and oriented, no signs of SOB or pain. 09/25: Pt in bed, no sob. Family at bedside. Skin graft planned for Monday. Objective Objective Current Medications Medications (Trade) Dose Ordered Sig/Constantin Route PRN Reason Start Time Stop Time Status Last Admin Dose Admin Acetaminophen (Tylenol) 650 mg Q4H PRN ORAL T>100.5 09/19/18 16:15 10/17/18 17:29 Acetaminophen/ Hydrocodone Bitart ([place] 10/325) 1 tab Q4H PRN ORAL moderate pain 09/19/18 16:15 09/26/18 15:59 09/21/18 08:17 Acetaminophen/ Hydrocodone Bitart ([place] 5/325) 1 tab Q4H PRN ORAL mild pain 09/19/18 16:15 09/25/18 14:59 Al Hydroxide/Mg Hydroxide (Mylanta) 15 ml Q6H PRN ORAL DYSPEPSIA 09/18/18 14:30 10/18/18 14:29 Ascorbic Acid (Vitamin C) 500 mg DAILY ORAL 09/18/18 09:00 10/18/18 08:59 Carisoprodol (Soma) 350 mg Q8H PRN ORAL muscle spasms 09/17/18 20:06 10/17/18 20:05 09/21/18 23:09 Carisoprodol (Soma) 350 mg THREE TIMES A DAY ORAL 09/22/18 14:00 10/22/18 13:59 09/25/18 13:48 Chlorhexidine Gluconate (Fifi-Hex 2%) 1 applic DAILY@2000 TOPIC 09/21/18 20:00 10/21/18 19:59 09/24/18 20:19 Dextrose (Dextrose 50%) 25 ml Q30M PRN IV Hypoglycemia 09/17/18 17:30 10/17/18 17:29 Dextrose (Dextrose 50%) 50 ml Q30M PRN IV Hypoglycemia 09/17/18 17:30 10/17/18 17:29 Diphenhydramine HCl (Benadryl) 25 mg Q8H PRN ORAL Itching/Pruritis 09/18/18 14:30 10/18/18 14:29 Docusate Sodium (Colace) 100 mg TWICE A DAY ORAL 09/18/18 18:00 10/18/18 17:59 09/24/18 17:39 Duloxetine HCl (Cymbalta) 30 mg DAILY ORAL 09/18/18 09:00 10/18/18 08:59 09/25/18 08:56 Ertapenem 1 gm/ Sodium Chloride 50 ml @ 100 mls/hr Q24H IVPB 09/23/18 16:00 09/28/18 15:59 09/24/18 16:13 Heparin Sodium (Porcine) (Heparin 5000 units/ml) 5,000 units EVERY 12 HOURS SUBQ 09/17/18 21:00 10/17/18 20:59 09/25/18 08:59 Hydromorphone HCl (Dilaudid) 4 mg Q4H PRN ORAL Severe Pain (Pain Scale 7-10) 09/19/18 16:00 09/26/18 15:59 09/25/18 09:29 Lactulose (Cephulac) 20 gm DAILY ORAL 09/18/18 09:00 10/18/18 08:59 Magnesium Hydroxide (Mom) 30 ml BIDPRN PRN ORAL Constipation 09/18/18 14:30 10/18/18 14:29 Multivitamins Therapeutic (Therapeutic Multivitamin) 1 ea DAILY ORAL 09/18/18 09:00 10/18/18 08:59 Naloxegol (Movantik) 25 mg DAILY ORAL 09/18/18 09:00 10/18/18 08:59 09/24/18 09:22 Ondansetron HCl (Zofran) 4 mg Q6H PRN IVP Nausea & Vomiting 09/18/18 14:30 10/18/18 14:29 09/19/18 10:07 Sodium Hypochlorite (Dakin's Quarter Strength) 1 applic DAILY TOPIC 09/18/18 09:00 10/18/18 08:59 09/25/18 09:03 Sodium Chloride 1,000 ml @ 75 mls/hr [id number] IV 09/17/18 21:00 10/17/18 20:59 09/23/18 23:54 Vancomycin HCl (Vanco rx to dose) 1 ea DAILY PRN MISC Per rx protocol 09/17/18 18:00 10/17/18 17:59 Vancomycin HCl/ Dextrose 275 ml @ 183.333 mls/hr Q12H IVPB 09/25/18 09:00 09/30/18 08:59 09/25/18 09:04 Zinc Sulfate (Zinc Sulfate) 220 mg DAILY ORAL 09/18/18 09:00 10/18/18 08:59 Last 24 Hour Vital Signs Date Time Temp Pulse Resp B/P (MAP) Pulse Ox O2 Delivery O2 Flow Rate FiO2 09/25/18 14:18 98.6 09/25/18 12:00 98.6 104 20 127/78 (94) 98 09/25/18 09:59 97.9 09/25/18 09:45 Room Air 09/25/18 08:00 98.2 112 20 110/64 (79) 98 09/25/18 04:19 97.9 102 20 126/78 (94) 98 09/24/18 23:58 97.0 94 18 117/88 (98) 96 09/24/18 21:04 Room Air 09/24/18 20:08 98.2 117 19 130/92 (105) 97 09/24/18 16:00 97.7 94 20 105/88 (94) 99 09/24/18 12:00 98.2 97 20 152/111 (125) 100 09/24/18 09:00 Room Air 09/24/18 08:00 98.0 86 20 152/98 (116) 100 09/24/18 04:00 96.4 92 18 124/80 (95) 96 09/24/18 00:00 97.6 90 18 130/66 (87) 98 09/23/18 21:00 Room Air 09/23/18 20:00 97.9 120 18 125/88 (100) 97 09/23/18 16:00 98.6 108 20 136/95 (109) 96 Intake and Output 09/24/18 09/25/18 18:59 06:59 Intake Total 750 ml 1860.0 ml Output Total 800 ml 1101 ml Balance -50 ml 759.0 ml Intake Oral 750 ml 760 ml IV Total 1100.0 ml Output Urine Total 800 ml 1100 ml Stool Total 1 ml # Voids 1 # Bowel Movements 1 Labs Test 09/23/18 05:15 09/24/18 04:40 09/24/18 19:22 Random Vancomycin Level 11.7 ug/mL White Blood Count 10.5 K/UL (4.8-10.8) Red Blood Count 3.71 M/UL (4.70-6.10) Hemoglobin 9.7 G/DL (14.2-18.0) Hematocrit 30.5 % (42.0-52.0) Mean Corpuscular Volume 82 FL (80-99) Mean Corpuscular Hemoglobin 26.1 PG (27.0-31.0) Mean Corpuscular Hemoglobin Concent 31.8 G/DL (32.0-36.0) Red Cell Distribution Width 13.1 % (11.6-14.8) Platelet Count 400 K/UL (150-450) Mean Platelet Volume 4.7 FL (6.5-10.1) Neutrophils (%) (Auto) 52.7 % (45.0-75.0) Lymphocytes (%) (Auto) 36.6 % (20.0-45.0) Monocytes (%) (Auto) 5.0 % (1.0-10.0) Eosinophils (%) (Auto) 4.0 % (0.0-3.0) Basophils (%) (Auto) 1.6 % (0.0-2.0) Sodium Level 140 MMOL/L (136-145) Potassium Level 3.2 MMOL/L (3.5-5.1) Chloride Level 106 MMOL/L (98-107) Carbon Dioxide Level 28 MMOL/L (21-32) Anion Gap 6 mmol/L (5-15) Blood Urea Nitrogen 8 mg/dL (7-18) Creatinine 1.0 MG/DL (0.55-1.30) Estimat Glomerular Filtration Rate > 60 mL/min (>60) Glucose Level 117 MG/DL (74-106) Calcium Level 8.0 MG/DL (8.5-10.1) Vancomycin Level Trough 10.1 ug/mL (5.0-12.0) Height (Feet): 5 Height (Inches): 8.00 Weight (Pounds): 188 Objective General Appearance: no apparent distress, alert HEENT: atraumatic, anicteric Neck: normal alignment, normal inspection Respiratory/Chest: lungs clear, normal breath sounds, no respiratory distress Cardiovascular/Chest: normal rate, regular rhythm Abdomen: non tender, soft, no organomegaly Extremities: non-tender, sacral wound+ Neurologic: alert, oriented x 3, normal mood/affect Gene Higgins MD Sep 25, 2018 14:44
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
[2018-09-25 16:00] VITALS: BP 136/88
--- NOTE | 2018-09-25 19:18 | NUR ---
HAND-OFF: Report given to ADRIANNA Reveles.
--- NOTE | 2018-09-25 19:44 | NUR ---
NURSE NOTES: Received patient awake,alert,verbal,resting in bed,no SOB noted.
[2018-09-25 20:13] VITALS: BP 127/81
[2018-09-25] MEDS: Dyna-Hex 2% Top Sol 2oz TOPIC SCH (20:50)
--- NOTE | 2018-09-25 21:16 | NUR ---
NURSE NOTES: wound on his left ischium were cleansed,dressing changed.
--- NOTE | 2018-09-25 23:36 | Neurology Progress Note ---
Interim History Interim History ROS Limited/Unobtainable: No Events: This visit was performed on September 25, [address] Geovanni Norman. Objective Physical Exam Last Vital Signs Date Time Temp Pulse Resp B/P (MAP) Pulse Ox O2 Delivery O2 Flow Rate FiO2 09/25/18 21:24 99.6 09/25/18 21:13 Room Air 09/25/18 20:13 106 20 127/81 (96) 99 09/18/18 14:17 3 Laya Gruber N.P. Sep 25, 2018 23:36
[2018-09-26 00:04] VITALS: BP 107/72
[2018-09-26 04:17] VITALS: BP 119/72
[2018-09-26 06:24] LABS: BASOPHILS % (AUTO) 1.1 % (0.0-2.0); EOSINOPHILS % (AUTO) 4.6 % (0.0-3.0); HEMATOCRIT 33.8 % (42.0-52.0); HEMOGLOBIN 10.8 G/DL (14.2-18.0); LYMPHOCYTES % (AUTO) 50.4 % (20.0-45.0); MEAN CORPUSCULAR VOLUME 83 FL (80-99); MONOCYTES % (AUTO) 2.3 % (1.0-10.0); NEUTROPHILS % (AUTO) 41.7 % (45.0-75.0); PLATELET COUNT 432 K/UL (150-450); RED BLOOD COUNT 4.08 M/UL (4.70-6.10); RED CELL DISTRIBUTION WIDTH 13.3 % (11.6-14.8); WHITE BLOOD COUNT 8.9 K/UL (4.8-10.8)
[2018-09-26 06:43] LABS: ANION GAP 7 mmol/L (5-15); BLOOD UREA NITROGEN 18 mg/dL (7-18); CALCIUM 9.3 MG/DL (8.5-10.1); CARBON DIOXIDE 28 MMOL/L (21-32); CHLORIDE 101 MMOL/L (98-107); CREATININE 1.3 MG/DL (0.55-1.30); POTASSIUM 3.7 MMOL/L (3.5-5.1); SODIUM 136 MMOL/L (136-145)
--- NOTE | 2018-09-26 07:26 | NUR ---
HAND-OFF: Report given to Arcenio Stewart RN.
[2018-09-26 08:00] VITALS: BP 107/74
--- NOTE | 2018-09-26 08:26 | NUR ---
NURSE NOTES: PT AXOX4, CALM, RESTING IN BED. IN NO APPARENT DISTRESS AT THIS TIME. BERUMEN CATH ANCHORED TO INNER THIGH AND DRAINING CLEAR YELLOW URINE BY GRAVITY. BED IN LOWEST POSITION IN BEDSIDE RAILS X3 RAISED. CALL LIGHT WITHIN REACH. WILL CONTINUE TO MONITOR.
[2018-09-26] MEDS: DULoxetine 30mg cap ORAL SCH (08:46)
[2018-09-26] MEDS: Docusate 100mg cap ORAL SCH ×2 (08:51→17:18)
[2018-09-26] MEDS: Heparin 5000 units/ml inj SUBQ SCH ×2 (08:51→20:39)
[2018-09-26] MEDS: Lactulose 20gm/30ml UDC ORAL SCH (08:51)
[2018-09-26] MEDS: Naloxegol Oxalate 25mg tab ORAL SCH (08:52)
[2018-09-26] MEDS: Multivitamin w/Minerals tab ORAL SCH (08:52)
[2018-09-26] MEDS: Zinc Sulfate 220mg cap ORAL SCH (08:52)
[2018-09-26] MEDS: Ascorbic Acid 500mg tab ORAL SCH (08:52)
[2018-09-26] MEDS: Dakin's 0.125% Soln (Quarter Strength) 16oz TOPIC SCH (08:52)
[2018-09-26] MEDS: Vancomycin 1.25gm Premix IVPB SCH (09:08)
--- NOTE | 2018-09-26 09:37 | Hematology/Onc Progress Note ---
Assessment/Plan Assessment/Plan Assessment and Recs: # Thrombocytosis - likely related to reactive process (and/or underlying infection) underlying ischium infection --> Current plt count is wnl --> plt trend: 551k-->524k-->400k-->432k --> If continues to be elevated, trend as needed --> Smear reviewed and no abnormalities noted. *Under manual differential --> s/p debridement, and biopsy of bone does show osteomyelitis as suspected per id # Hyperproteinemia with decreased albumin -- this is a dissociation that is abnormal, potentially related to inflammation --> spep and upep have been reviewed --> biopsy of bone doesn't show myeloma, shows osteomyelitis # Leukocytosis is likely due to ischium infection/sacral decub --> WBC is currently resolved --> surgery and Id consulted, appreciate recs --> debridement as per surgery --> on abx --> Wound cx++ # Anemia of chronic disease --> hold off further w/u unless hgb less than 10 --> trend as needed # Full thickness pressure injury to L ischium with acute infection --> debridement per sx and shows osteomyelitis --> ID and surg f/u on abx # Paraplegia # Chronic indwelling Tim catheter # UTI due to chronic tim # Chronic constipation # Protein calorie malnutrition The timing of this note does not necessarily reflect the time of the patient was seen. Greatly appreciate consultation! Subjective Hematologic/Lymphatic: Reports: anemia Allergies: Coded Allergies: MORPHINE (Verified Allergy, Unknown, 09/17/18) All Systems: reviewed and negative except above Subjective 09/19: no events, no fevers or chills reported, no night sweats, s/p debridement , seen by id 09/20: getting PT today, no events, less pain, recovering from surgery. 09/21: Pt examined at bedside, finished eating breakfast. Breathing is unlabored on room air, no signs of respiratory distress observed. No acute events. 09/23: Pt awake and alert. No signs of distress, family at bedside. 09/24: Pt resting in bed, Alert and oriented, no signs of SOB or pain. 09/25: Pt in bed, no sob. Family at bedside. Skin graft planned for Monday. 09/26: Pt awake and alert, resting in bed. In no apparent distress. Objective Objective Current Medications Medications (Trade) Dose Ordered Sig/Constantin Route PRN Reason Start Time Stop Time Status Last Admin Dose Admin Acetaminophen (Tylenol) 650 mg Q4H PRN ORAL T>100.5 09/19/18 16:15 10/17/18 17:29 Acetaminophen/ Hydrocodone Bitart ([place] 10/325) 1 tab Q4H PRN ORAL moderate pain 09/19/18 16:15 09/26/18 15:59 09/21/18 08:17 Al Hydroxide/Mg Hydroxide (Mylanta) 15 ml Q6H PRN ORAL DYSPEPSIA 09/18/18 14:30 10/18/18 14:29 Ascorbic Acid (Vitamin C) 500 mg DAILY ORAL 09/18/18 09:00 10/18/18 08:59 Carisoprodol (Soma) 350 mg Q8H PRN ORAL muscle spasms 09/17/18 20:06 10/17/18 20:05 09/21/18 23:09 Carisoprodol (Soma) 350 mg THREE TIMES A DAY ORAL 09/22/18 14:00 10/22/18 13:59 09/26/18 08:46 Chlorhexidine Gluconate (Iffi-Hex 2%) 1 applic DAILY@2000 TOPIC 09/21/18 20:00 10/21/18 19:59 09/25/18 20:50 Dextrose (Dextrose 50%) 25 ml Q30M PRN IV Hypoglycemia 09/17/18 17:30 10/17/18 17:29 Dextrose (Dextrose 50%) 50 ml Q30M PRN IV Hypoglycemia 09/17/18 17:30 10/17/18 17:29 Diphenhydramine HCl (Benadryl) 25 mg Q8H PRN ORAL Itching/Pruritis 09/18/18 14:30 10/18/18 14:29 Docusate Sodium (Colace) 100 mg TWICE A DAY ORAL 09/18/18 18:00 10/18/18 17:59 09/24/18 17:39 Duloxetine HCl (Cymbalta) 30 mg DAILY ORAL 09/18/18 09:00 10/18/18 08:59 09/26/18 08:46 Ertapenem 1 gm/ Sodium Chloride 50 ml @ 100 mls/hr Q24H IVPB 09/23/18 16:00 09/28/18 15:59 09/25/18 17:25 Heparin Sodium (Porcine) (Heparin 5000 units/ml) 5,000 units EVERY 12 HOURS SUBQ 09/17/18 21:00 10/17/18 20:59 09/26/18 08:51 Hydromorphone HCl (Dilaudid) 4 mg Q4H PRN ORAL Severe Pain (Pain Scale 7-10) 09/19/18 16:00 09/26/18 15:59 09/25/18 20:54 Lactulose (Cephulac) 20 gm DAILY ORAL 09/18/18 09:00 10/18/18 08:59 Magnesium Hydroxide (Mom) 30 ml BIDPRN PRN ORAL Constipation 09/18/18 14:30 10/18/18 14:29 Multivitamins Therapeutic (Therapeutic Multivitamin) 1 ea DAILY ORAL 09/18/18 09:00 10/18/18 08:59 Naloxegol (Movantik) 25 mg DAILY ORAL 09/18/18 09:00 10/18/18 08:59 09/24/18 09:22 Ondansetron HCl (Zofran) 4 mg Q6H PRN IVP Nausea & Vomiting 09/18/18 14:30 10/18/18 14:29 09/19/18 10:07 Sodium Hypochlorite (Dakin's Quarter Strength) 1 applic DAILY TOPIC 09/18/18 09:00 10/18/18 08:59 09/25/18 09:03 Sodium Chloride 1,000 ml @ 75 mls/hr [id number] IV 09/17/18 21:00 10/17/18 20:59 09/25/18 17:16 Vancomycin HCl (Vanco rx to dose) 1 ea DAILY PRN MISC Per rx protocol 09/17/18 18:00 10/17/18 17:59 Vancomycin HCl 1 gm/Dextrose 275 ml @ 183.708 mls/hr Q12HR@0300,1500 IVPB 09/26/18 15:00 10/01/18 14:59 Zinc Sulfate (Zinc Sulfate) 220 mg DAILY ORAL 09/18/18 09:00 10/18/18 08:59 Last 24 Hour Vital Signs Date Time Temp Pulse Resp B/P (MAP) Pulse Ox O2 Delivery O2 Flow Rate FiO2 09/26/18 08:00 97.9 91 20 107/74 (85) 97 09/26/18 04:17 98.4 92 20 119/72 (88) 98 09/26/18 00:04 97.9 104 18 107/72 (84) 98 09/25/18 21:24 99.6 09/25/18 21:13 Room Air 09/25/18 20:13 99.6 106 20 127/81 (96) 99 09/25/18 16:00 99.0 20 136/88 (104) 98 09/25/18 14:18 98.6 09/25/18 12:00 98.6 104 20 127/78 (94) 98 09/25/18 09:45 Room Air 09/25/18 08:00 98.2 112 20 110/64 (79) 98 09/25/18 04:19 97.9 102 20 126/78 (94) 98 09/24/18 23:58 97.0 94 18 117/88 (98) 96 09/24/18 21:04 Room Air 09/24/18 20:08 98.2 117 19 130/92 (105) 97 09/24/18 16:00 97.7 94 20 105/88 (94) 99 09/24/18 12:00 98.2 97 20 152/111 (125) 100 Intake and Output 09/25/18 09/26/18 19:00 07:00 Intake Total 1300.000 ml 950.000 ml Output Total 1200 ml 1200 ml Balance 100.000 ml -250.000 ml Intake Oral 800 ml IV Total 500.000 ml 950.000 ml Output Urine Total 1200 ml 1200 ml # Bowel Movements 1 Labs Test 09/24/18 04:40 09/24/18 19:22 09/26/18 05:00 09/26/18 08:00 White Blood Count 10.5 K/UL (4.8-10.8) 8.9 K/UL (4.8-10.8) Red Blood Count 3.71 M/UL (4.70-6.10) 4.08 M/UL (4.70-6.10) Hemoglobin 9.7 G/DL (14.2-18.0) 10.8 G/DL (14.2-18.0) Hematocrit 30.5 % (42.0-52.0) 33.8 % (42.0-52.0) Mean Corpuscular Volume 82 FL (80-99) 83 FL (80-99) Mean Corpuscular Hemoglobin 26.1 PG (27.0-31.0) 26.5 PG (27.0-31.0) Mean Corpuscular Hemoglobin Concent 31.8 G/DL (32.0-36.0) 32.0 G/DL (32.0-36.0) Red Cell Distribution Width 13.1 % (11.6-14.8) 13.3 % (11.6-14.8) Platelet Count 400 K/UL (150-450) 432 K/UL (150-450) Mean Platelet Volume 4.7 FL (6.5-10.1) 4.9 FL (6.5-10.1) Neutrophils (%) (Auto) 52.7 % (45.0-75.0) 41.7 % (45.0-75.0) Lymphocytes (%) (Auto) 36.6 % (20.0-45.0) 50.4 % (20.0-45.0) Monocytes (%) (Auto) 5.0 % (1.0-10.0) 2.3 % (1.0-10.0) Eosinophils (%) (Auto) 4.0 % (0.0-3.0) 4.6 % (0.0-3.0) Basophils (%) (Auto) 1.6 % (0.0-2.0) 1.1 % (0.0-2.0) Sodium Level 140 MMOL/L (136-145) 136 MMOL/L (136-145) Potassium Level 3.2 MMOL/L (3.5-5.1) 3.7 MMOL/L (3.5-5.1) Chloride Level 106 MMOL/L (98-107) 101 MMOL/L (98-107) Carbon Dioxide Level 28 MMOL/L (21-32) 28 MMOL/L (21-32) Anion Gap 6 mmol/L (5-15) 7 mmol/L (5-15) Blood Urea Nitrogen 8 mg/dL (7-18) 18 mg/dL (7-18) Creatinine 1.0 MG/DL (0.55-1.30) 1.3 MG/DL (0.55-1.30) Estimat Glomerular Filtration Rate > 60 mL/min (>60) > 60 mL/min (>60) Glucose Level 117 MG/DL (74-106) 105 MG/DL (74-106) Calcium Level 8.0 MG/DL (8.5-10.1) 9.3 MG/DL (8.5-10.1) Vancomycin Level Trough 10.1 ug/mL (5.0-12.0) 22.9 ug/mL (5.0-12.0) Height (Feet): 5 Height (Inches): 8.00 Weight (Pounds): 190 Objective General Appearance: no apparent distress, alert HEENT: atraumatic, anicteric Neck: normal alignment, normal inspection Respiratory/Chest: lungs clear, normal breath sounds, no respiratory distress Cardiovascular/Chest: normal rate, regular rhythm Abdomen: non tender, soft, no organomegaly Extremities: non-tender, sacral wound+ Neurologic: alert, oriented x 3, normal mood/affect Gene Higgins MD Sep 26, 2018 09:37
--- NOTE | 2018-09-26 09:41 | General Progress Note ---
Progress Note Progress Note Pt seen and examined. We checked the patient's albumin and it was 1.8. Will check the prealbumin as well. If it is confirmed that the patient is not nutritionally optimized then we will need to postpone the surgery until the nutritional parameters have improved. Will thus likely discharge back to the SNF on IV abx for his osteomyelitis and a nutrition consult. Will plan on the ischial wound reconstruction once the patient is ready. Nicholas Webber MD, MD Sep 26, 2018 09:41
[2018-09-26] MEDS: HYDROmorphone 4mg tab ORAL PRN ×2 (10:44→14:46)
[2018-09-26 12:00] VITALS: BP 132/72
--- NOTE | 2018-09-26 14:00 | NUR ---
NURSE NOTES: DR DOLAN MADE AWARE OF DR GUO CONCERN FOR WOUND RECONSTRUCTION.PT ANXIOUS TO BE DISCHARGED TO [facility]. PER DR DOLAN, WILL WAIT FOR PRE-ALBUMIN LEVEL RESULTS BEFORE DECIDING ON RECONSTRUCTION OF LEFT ISCHIAL WOUND AND DISCHARGE. PT MADE AWARE OF MD PLANS.
--- NOTE | 2018-09-26 14:26 | NUR ---
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 OSTEOMYELITIS VS: BP 132/72, P 104, T 99.6, RR 21, SpO2 96 RBC 4.08, H&H 10.8/33.8, IS:SOMA 350mg DILAUDID 4mG NS x1L IV CYMBALTA 30mg ERTAPENEM 50ml IVPB MED/SURG STATUS
[2018-09-26] MEDS: Vancomycin 1gm/D5W 275ml IVPB SCH ×2 (14:44)
[2018-09-26] MEDS ORDERED: Tubing IV Secondary IV ONE (15:39)
[2018-09-26 16:00] VITALS: BP 111/75
--- NOTE | 2018-09-26 16:46 | General Progress Note ---
Assessment/Plan Assessment/Plan: #Full thickness pressure injury to L ischium with acute infection #s/p Excisional debridement of left ischial decubitus ulcer and nonviable flap #Acute osteomyelitis #Leukocytosis #Paraplegia #Chronic indwelling Tim catheter #UTI due to chronic tim #Chronic constipation #Protein calorie malnutrition -continue inpatient level of care -Broad spectrum IV abx per Infectious Disease, PICC placed for 6 weeks antibiotic course. -Surgery following -Routine post-op care -Follow up cultures -continue current pain regimen -Plan for skin grafting Monday by Dr. Vail, pending nutritional status eval for wound healing. Check prealbumin Based on the patient's medical history, and other available ancillary data, the patient is a LOW risk for an INTERMEDIATE risk procedure. Per the most recent ACC/AHA guidelines, the patient does not need any further cardiopulmonary testing prior to the procedure and there do not appear to be any clear medical contraindications to proceeding with the proposed procedure. Perioperative recommendations include IV Ancef [id number] security system sales consultant to the OR. Post operative recommendations include: - Encourage mobilization/ambulation - Encourage incentive spirometry to optimize pulmonary hygiene - DVT/GI prophylaxis as appropriate - Pain control and supportive care Subjective Date patient seen: Sep 26, 2018 Time patient seen: 12:16 ROS Limited/Unobtainable: No Cardiovascular: Denies: chest pain Respiratory: Denies: cough, shortness of breath Gastrointestinal/Abdominal: Denies: abdomen distended, abdominal pain Allergies: Coded Allergies: MORPHINE (Verified Allergy, Unknown, 09/17/18) Subjective Medicine follow up for infected left ischial ulcer, acute osteo underwent Excisional debridement of left ischial decubitus ulcer and nonviable flap 09/18 No new complaints today Objective Last 24 Hour Vital Signs Date Time Temp Pulse Resp B/P (MAP) Pulse Ox O2 Delivery O2 Flow Rate FiO2 09/26/18 16:00 98.1 91 19 111/75 (87) 99 09/26/18 12:00 97.3 82 21 132/72 (92) 96 09/26/18 09:00 Room Air 09/26/18 08:00 97.9 91 20 107/74 (85) 97 09/26/18 04:17 98.4 92 20 119/72 (88) 98 09/26/18 00:04 97.9 104 18 107/72 (84) 98 09/25/18 21:24 99.6 09/25/18 21:13 Room Air 09/25/18 20:13 99.6 106 20 127/81 (96) 99 Intake and Output 09/25/18 09/26/18 18:59 06:59 Intake Total 1300.000 ml 1025.000 ml Output Total 1200 ml 1200 ml Balance 100.000 ml -175.000 ml Intake Oral 800 ml IV Total 500.000 ml 1025.000 ml Output Urine Total 1200 ml 1200 ml # Bowel Movements 1 Laboratory Tests 09/26/18 05:00: White Blood Count 8.9, Red Blood Count 4.08L, Hemoglobin 10.8L, Hematocrit 33.8L , Mean Corpuscular Volume 83, Mean Corpuscular Hemoglobin 26.5L, Mean Corpuscular Hemoglobin Concent 32.0, Red Cell Distribution Width 13.3, Platelet Count 432, Mean Platelet Volume 4.9L, Neutrophils (%) (Auto) 41.7L, Lymphocytes (%) (Auto) 50.4H, Monocytes (%) (Auto) 2.3, Eosinophils (%) (Auto) 4.6H, Basophils (%) (Auto) 1.1, Sodium Level 136, Potassium Level 3.7, Chloride Level 101, Carbon Dioxide Level 28, Anion Gap 7, Blood Urea Nitrogen 18, Creatinine 1.3, Estimat Glomerular Filtration Rate > 60, Glucose Level 105, Calcium Level 9.3, Prealbumin [Pending] 09/26/18 08:00: Vancomycin Level Trough 22.9H Height (Feet): 5 Height (Inches): 8.00 Weight (Pounds): 190 General Appearance: alert Neck: normal alignment Cardiovascular: normal rate, regular rhythm Respiratory/Chest: lungs clear, normal breath sounds Abdomen: non tender, soft Serjio Easton MD Sep 26, 2018 16:46
--- NOTE | 2018-09-26 17:05 | NUR ---
NURSE NOTES: PT CHANGED COLOSTOMY INDEPENDENTLY. STOMA IS PINK. SKIN AROUND COLOSTOMY WAS CLEANED WITH SOAP AND WATER, APPLIED SKIN BARRIER FILM.
--- NOTE | 2018-09-26 18:02 | NUR ---
NURSE NOTES: PT STATES HE DOES NOT WANT FLAP RECONSTRUCTION SURGERY ANYMORE AND WANTS TO BE DISCHARGED. RN LEFT MESSAGE FOR DR DOLAN REGARDING PT'S REQUEST. PT'S LEFT ISCHIAL SURGICAL DRESSING CHANGED AT 1000HRS AND 1700HRS. WOUND BED IS RED, SMALL AMOUNT OF SERO-SANG DRAINAGE, NO FOUL ODOR.
--- NOTE | 2018-09-26 19:16 | NUR ---
HAND-OFF: Report given to Julita ESIPTIA RN.
--- NOTE | 2018-09-26 19:50 | NUR ---
NURSE NOTES: Received patient in bed, awake, alert, oriented, no acute distress noted, VSS, afebrile, call light is within reach, bed is in low position, locked and alarm is on. Will continue to monitor for safety and comfort.
[2018-09-26 20:00] VITALS: BP 110/69
[2018-09-26] MEDS: Dyna-Hex 2% Top Sol 2oz TOPIC SCH (20:38)
--- NOTE | 2018-09-26 23:48 | Neurology Progress Note ---
Interim History Interim History ROS Limited/Unobtainable: No Events: This visit was performed on September 26, [address] Geovanni Norman. Objective Physical Exam Last Vital Signs Date Time Temp Pulse Resp B/P (MAP) Pulse Ox O2 Delivery O2 Flow Rate FiO2 09/26/18 21:00 Room Air 09/26/18 20:00 98.1 85 20 110/69 (83) 09/26/18 16:00 99 09/18/18 14:17 3 Laboratory Tests Test 09/26/18 05:00 09/26/18 08:00 White Blood Count 8.9 K/UL (4.8-10.8) Red Blood Count 4.08 M/UL (4.70-6.10) L Hemoglobin 10.8 G/DL (14.2-18.0) L Hematocrit 33.8 % (42.0-52.0) L Mean Corpuscular Volume 83 FL (80-99) Mean Corpuscular Hemoglobin 26.5 PG (27.0-31.0) L Mean Corpuscular Hemoglobin Concent 32.0 G/DL (32.0-36.0) Red Cell Distribution Width 13.3 % (11.6-14.8) Platelet Count 432 K/UL (150-450) Mean Platelet Volume 4.9 FL (6.5-10.1) L Neutrophils (%) (Auto) 41.7 % (45.0-75.0) L Lymphocytes (%) (Auto) 50.4 % (20.0-45.0) H Monocytes (%) (Auto) 2.3 % (1.0-10.0) Eosinophils (%) (Auto) 4.6 % (0.0-3.0) H Basophils (%) (Auto) 1.1 % (0.0-2.0) Sodium Level 136 MMOL/L (136-145) Potassium Level 3.7 MMOL/L (3.5-5.1) Chloride Level 101 MMOL/L (98-107) Carbon Dioxide Level 28 MMOL/L (21-32) Anion Gap 7 mmol/L (5-15) Blood Urea Nitrogen 18 mg/dL (7-18) Creatinine 1.3 MG/DL (0.55-1.30) Estimat Glomerular Filtration Rate > 60 mL/min (>60) Glucose Level 105 MG/DL (74-106) Calcium Level 9.3 MG/DL (8.5-10.1) Prealbumin Pending Vancomycin Level Trough 22.9 ug/mL (5.0-12.0) H Laya Gruber N.P. Sep 26, 2018 23:48
[2018-09-27] MEDS: HYDROmorphone 4mg tab ORAL PRN ×4 (00:32→23:15)
[2018-09-27 00:50] VITALS: BP 110/70
[2018-09-27] MEDS: Vancomycin 1gm/D5W 275ml IVPB SCH ×4 (03:06→15:00)
[2018-09-27 04:10] VITALS: BP 117/75
--- NOTE | 2018-09-27 07:04 | NUR ---
HAND-OFF: Report given to Nancy RODAS.
--- NOTE | 2018-09-27 07:04 | NUR ---
HAND-OFF: Report given to Nancy RODAS.
--- NOTE | 2018-09-27 07:37 | NUR ---
NURSE NOTES: received report from ADRIANNA Fraga. patient in bed. A&Ox4, verbally responsive. no respiratory distress noted in room air. no c/o pain at this time. PICC line left upper arm intact. F/C draining. bed in the lowest position . call light within reach, P200 mattress for wound management. will continue to monitor
[2018-09-27 08:00] VITALS: BP 108/69
[2018-09-27] MEDS: Naloxegol Oxalate 25mg tab ORAL SCH (08:30)
[2018-09-27] MEDS: Docusate 100mg cap ORAL SCH ×2 (08:30→17:15)
[2018-09-27] MEDS: Lactulose 20gm/30ml UDC ORAL SCH (08:30)
[2018-09-27] MEDS: Ascorbic Acid 500mg tab ORAL SCH (08:31)
[2018-09-27] MEDS: Multivitamin w/Minerals tab ORAL SCH (08:31)
[2018-09-27] MEDS: Zinc Sulfate 220mg cap ORAL SCH (08:31)
[2018-09-27] MEDS: DULoxetine 30mg cap ORAL SCH (08:32)
[2018-09-27] MEDS: Dakin's 0.125% Soln (Quarter Strength) 16oz TOPIC SCH (08:33)
[2018-09-27] MEDS: Heparin 5000 units/ml inj SUBQ SCH ×2 (08:34→21:12)
--- NOTE | 2018-09-27 09:44 | Hematology/Onc Progress Note ---
Assessment/Plan Assessment/Plan Assessment and Recs: # Thrombocytosis - likely related to reactive process (and/or underlying infection) underlying ischium infection --> Current plt count is wnl --> plt trend: 551k-->524k-->400k-->432k --> If continues to be elevated, trend as needed --> Smear reviewed and no abnormalities noted. *Under manual differential --> s/p debridement, and biopsy of bone does show osteomyelitis as suspected per id # Hyperproteinemia with decreased albumin -- this is a dissociation that is abnormal, potentially related to inflammation --> spep and upep have been reviewed --> biopsy of bone doesn't show myeloma, shows osteomyelitis # Leukocytosis is likely due to ischium infection/sacral decub --> WBC is currently resolved --> surgery and Id consulted, appreciate recs --> debridement as per surgery --> on abx --> Wound cx++ # Anemia of chronic disease --> hold off further w/u unless hgb less than 10 --> trend as needed # Full thickness pressure injury to L ischium with acute infection --> debridement per sx and shows osteomyelitis --> ID and surg f/u on abx # Paraplegia # Chronic indwelling Tim catheter # UTI due to chronic tim # Chronic constipation # Protein calorie malnutrition The timing of this note does not necessarily reflect the time of the patient was seen. Greatly appreciate consultation! Subjective Allergies: Coded Allergies: MORPHINE (Verified Allergy, Unknown, 09/17/18) All Systems: reviewed and negative except above Subjective 09/19: no events, no fevers or chills reported, no night sweats, s/p debridement , seen by id 09/20: getting PT today, no events, less pain, recovering from surgery. 09/21: Pt examined at bedside, finished eating breakfast. Breathing is unlabored on room air, no signs of respiratory distress observed. No acute events. 09/23: Pt awake and alert. No signs of distress, family at bedside. 09/24: Pt resting in bed, Alert and oriented, no signs of SOB or pain. 09/25: Pt in bed, no sob. Family at bedside. Skin graft planned for Monday. 09/26: Pt awake and alert, resting in bed. In no apparent distress. 6/06: Pt awake and alert. No resp distress noted. Remains on abx. Pt refusing some meds. Objective Objective Current Medications Medications (Trade) Dose Ordered Sig/Constantin Route PRN Reason Start Time Stop Time Status Last Admin Dose Admin Acetaminophen (Tylenol) 650 mg Q4H PRN ORAL T>100.5 09/19/18 16:15 10/17/18 17:29 Al Hydroxide/Mg Hydroxide (Mylanta) 15 ml Q6H PRN ORAL DYSPEPSIA 09/18/18 14:30 10/18/18 14:29 Ascorbic Acid (Vitamin C) 500 mg DAILY ORAL 09/18/18 09:00 10/18/18 08:59 Carisoprodol (Soma) 350 mg Q8H PRN ORAL muscle spasms 09/17/18 20:06 10/17/18 20:05 09/21/18 23:09 Carisoprodol (Soma) 350 mg THREE TIMES A DAY ORAL 09/22/18 14:00 10/22/18 13:59 09/27/18 08:33 Chlorhexidine Gluconate (Fifi-Hex 2%) 1 applic DAILY@2000 TOPIC 09/21/18 20:00 10/21/18 19:59 09/26/18 20:38 Dextrose (Dextrose 50%) 25 ml Q30M PRN IV Hypoglycemia 09/17/18 17:30 10/17/18 17:29 Dextrose (Dextrose 50%) 50 ml Q30M PRN IV Hypoglycemia 09/17/18 17:30 10/17/18 17:29 Diphenhydramine HCl (Benadryl) 25 mg Q8H PRN ORAL Itching/Pruritis 09/18/18 14:30 10/18/18 14:29 Docusate Sodium (Colace) 100 mg TWICE A DAY ORAL 09/18/18 18:00 10/18/18 17:59 09/24/18 17:39 Duloxetine HCl (Cymbalta) 30 mg DAILY ORAL 09/18/18 09:00 10/18/18 08:59 09/27/18 08:32 Ertapenem 1 gm/ Sodium Chloride 50 ml @ 100 mls/hr Q24H IVPB 09/23/18 16:00 09/28/18 15:59 09/26/18 16:27 Heparin Sodium (Porcine) (Heparin 5000 units/ml) 5,000 units EVERY 12 HOURS SUBQ 09/17/18 21:00 10/17/18 20:59 09/27/18 08:34 Hydromorphone HCl (Dilaudid) 4 mg Q4H PRN ORAL Severe Pain (Pain Scale 7-10) 09/26/18 23:45 10/03/18 23:44 09/27/18 08:43 Lactulose (Cephulac) 20 gm DAILY ORAL 09/18/18 09:00 10/18/18 08:59 Magnesium Hydroxide (Mom) 30 ml BIDPRN PRN ORAL Constipation 09/18/18 14:30 10/18/18 14:29 Multivitamins Therapeutic (Therapeutic Multivitamin) 1 ea DAILY ORAL 09/18/18 09:00 10/18/18 08:59 Naloxegol (Movantik) 25 mg DAILY ORAL 09/18/18 09:00 10/18/18 08:59 09/24/18 09:22 Ondansetron HCl (Zofran) 4 mg Q6H PRN IVP Nausea & Vomiting 09/18/18 14:30 10/18/18 14:29 09/19/18 10:07 Sodium Hypochlorite (Dakin's Quarter Strength) 1 applic DAILY TOPIC 09/18/18 09:00 10/18/18 08:59 09/27/18 08:33 Sodium Chloride 1,000 ml @ 75 mls/hr [id number] IV 09/17/18 21:00 10/17/18 20:59 09/27/18 08:44 Vancomycin HCl (Vanco rx to dose) 1 ea DAILY PRN MISC Per rx protocol 09/17/18 18:00 10/17/18 17:59 Vancomycin HCl 1 gm/Dextrose 275 ml @ 183.708 mls/hr Q12HR@0300,1500 IVPB 09/26/18 15:00 10/01/18 14:59 09/27/18 03:06 Zinc Sulfate (Zinc Sulfate) 220 mg DAILY ORAL 09/18/18 09:00 10/18/18 08:59 Last 24 Hour Vital Signs Date Time Temp Pulse Resp B/P (MAP) Pulse Ox O2 Delivery O2 Flow Rate FiO2 09/27/18 04:10 97.0 87 20 117/75 (89) 09/27/18 00:50 97.9 93 20 110/70 (83) 09/26/18 21:00 Room Air 09/26/18 20:00 98.1 85 20 110/69 (83) 09/26/18 16:00 98.1 91 19 111/75 (87) 99 09/26/18 12:00 97.3 82 21 132/72 (92) 96 09/26/18 09:00 Room Air 09/26/18 08:00 97.9 91 20 107/74 (85) 97 09/26/18 04:17 98.4 92 20 119/72 (88) 98 09/26/18 00:04 97.9 104 18 107/72 (84) 98 09/25/18 21:24 99.6 09/25/18 21:13 Room Air 09/25/18 20:13 99.6 106 20 127/81 (96) 99 09/25/18 16:00 99.0 20 136/88 (104) 98 09/25/18 14:18 98.6 09/25/18 12:00 98.6 104 20 127/78 (94) 98 09/25/18 09:45 Room Air Intake and Output 09/26/18 09/27/18 19:00 07:00 Intake Total 1720.000 ml Output Total 1400 ml 1616 ml Balance 320.000 ml -1616 ml Intake Oral 720 ml IV Total 1000.000 ml Output Urine Total 1400 ml 1616 ml # Bowel Movements 1 Labs Test 09/24/18 19:22 09/26/18 05:00 09/26/18 08:00 Vancomycin Level Trough 10.1 ug/mL (5.0-12.0) 22.9 ug/mL (5.0-12.0) White Blood Count 8.9 K/UL (4.8-10.8) Red Blood Count 4.08 M/UL (4.70-6.10) Hemoglobin 10.8 G/DL (14.2-18.0) Hematocrit 33.8 % (42.0-52.0) Mean Corpuscular Volume 83 FL (80-99) Mean Corpuscular Hemoglobin 26.5 PG (27.0-31.0) Mean Corpuscular Hemoglobin Concent 32.0 G/DL (32.0-36.0) Red Cell Distribution Width 13.3 % (11.6-14.8) Platelet Count 432 K/UL (150-450) Mean Platelet Volume 4.9 FL (6.5-10.1) Neutrophils (%) (Auto) 41.7 % (45.0-75.0) Lymphocytes (%) (Auto) 50.4 % (20.0-45.0) Monocytes (%) (Auto) 2.3 % (1.0-10.0) Eosinophils (%) (Auto) 4.6 % (0.0-3.0) Basophils (%) (Auto) 1.1 % (0.0-2.0) Sodium Level 136 MMOL/L (136-145) Potassium Level 3.7 MMOL/L (3.5-5.1) Chloride Level 101 MMOL/L (98-107) Carbon Dioxide Level 28 MMOL/L (21-32) Anion Gap 7 mmol/L (5-15) Blood Urea Nitrogen 18 mg/dL (7-18) Creatinine 1.3 MG/DL (0.55-1.30) Estimat Glomerular Filtration Rate > 60 mL/min (>60) Glucose Level 105 MG/DL (74-106) Calcium Level 9.3 MG/DL (8.5-10.1) Prealbumin 18 mg/dL (10-36) Height (Feet): 5 Height (Inches): 8.00 Weight (Pounds): 190 Objective General Appearance: no apparent distress, alert HEENT: atraumatic, anicteric Neck: normal alignment, normal inspection Respiratory/Chest: lungs clear, normal breath sounds, no respiratory distress Cardiovascular/Chest: normal rate, regular rhythm Abdomen: non tender, soft, no organomegaly Extremities: non-tender, sacral wound+ Neurologic: alert, oriented x 3, normal mood/affect Gene Higgins MD Sep 27, 2018 09:44
--- NOTE | 2018-09-27 10:28 | NUR ---
RD ASSESSMENT & RECOMMENDATIONS SEE CARE ACTIVITY FOR COMPLETE ASSESSMENT DAILY ESTIMATED NEEDS: Needs based on Wound, paraplegia 73.8kg adj 28-30 kcals/kg 4248-4612 total kcals 1.25-2 g protein/kg 92-148 g total protein 25-30 mL/kg 2310-9622 total fluid mLs NUTRITION DIAGNOSIS: Increased kcal and pro needs r/t wound healing as evidenced by pt w/ 'infected necrotic left ischial decubitus ulcer with nonviable prior flap' per MD, now s/p debridement, pending skin grafting. CURRENT DIET: Regular PO DIET RECOMMENDATIONS: REGULAR/ DOUBLE PROTEINS ADDITIONAL RECOMMENDATIONS: 1) Ensure Enlive 1 bottle BID in b/w meals (350kcal/20g prot per bottle) 2) Wound care: continue ANAM BID 3) Obtain a calibrated bed scale wt w/ now added P200 mattress 4) Wound care : MVI x1, Vit C 500mg BID, ZnSo4 220mg x10 days -> pt refusing all supplements noted
--- NOTE | 2018-09-27 11:41 | Discharge Summary ---
Discharge Summary Hospital Course Date of Admission September 17, 2018 at 16:44 Date of Discharge 09/27/18 Admitting Diagnosis INFECTED DECUB ULCER HPI Clyde Conteh is a 53 year old male who was admitted on September 17, 2018 at 16:44 for Infected Decub Ulcer Consultations General Surgery, Plastic Surgery Hospital Course Patient sent [facility] for evaluation of foul-smelling left ischial ulcer, seen by ID and General Surgery, underwent debridement with bone biopsy confirming acute osteo. Seen by Plastic Surgery who plans to do skin grafting once nutritional status is optimized. Patient will continue on vanco and ertapenem until 10/30. 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 Discharge Diagnoses: #Full thickness pressure injury to L ischium with acute infection #s/p Excisional debridement of left ischial decubitus ulcer and nonviable flap #Acute osteomyelitis #Leukocytosis #Paraplegia #Chronic indwelling Tim catheter #UTI due to chronic tim #Chronic constipation #Protein calorie malnutrition Discharge Medications New Medications: Ertapenem (Invanz) 1 Gm Vial 1 GM IM DAILY for 35 Days, VIAL Vancomycin/Water For Inj (Peg) (Vancomycin 1 Gram/200 ml Bag) 1 Gm/200 Ml Piggyback 1 GM IV BID for 35 Days, BAG Continued Medications: Acetaminophen* (Acetaminophen 325MG Tablet*) 325 Mg Tablet 650 MG ORAL Q6H PRN for Mild Pain/Temp > 100.5, TAB Amino Acids/Protein Hydrolys (Pro-Stat Liquid) 30 Ml Liquid.pkt 30 ML ORAL TWICE A DAY, ML Ascorbic Acid* (Vitamin C*) 500 Mg Tablet 500 MG ORAL DAILY, TAB Ascorbic Acid* (Vitamin C*) 500 Mg Tablet 500 MG ORAL DAILY Carisoprodol* (Carisoprodol*) 350 Mg Tablet 350 MG ORAL Q8H PRN for muscle spasms, TAB Cranberry Fruit (Cranberry) 450 Mg Tablet 450 MG PO DAILY, TAB Cyclobenzaprine Hcl (Cyclobenzaprine Hcl) 5 Mg Tablet 5 MG ORAL BID, TAB Docusate Sodium* (Docusate Sodium*) 100 Mg Capsule 200 MG ORAL TWICE A DAY PRN for Constipation, CAP Duloxetine Hcl* (Cymbalta*) 30 Mg Capsule.dr 30 MG ORAL DAILY, CAP Lactobacillus Acidophilus (Acidophilus) 1 Each Capsule 1 EACH PO BID, CAP Lactulose (Lactulose*) 20 Gm/30 Ml Solution 30 ML ORAL DAILY, ML HOLD FOR LOOSE BOWEL MOVEMENT Magnesium Hydroxide* (Milk Of Magnesia*) 400 Mg/5 Ml Oral.susp 30 ML ORAL DAILY PRN for Constipation, ML IF DOCUSATE INEFFECTIVE Multivitamin With Minerals (Multivitamins With Minerals*) 1 Each Tablet 1 TAB ORAL DAILY, TAB Oxycodone HCl (Oxycodone HCl) 5 Mg Tablet 5 MG ORAL Q4H PRN for Moderate Pain (Pain Scale 4-6), TAB Oxycodone Hcl Er* (Oxycontin*) 10 Mg Tab.er.12h 10 MG ORAL Q8HR PRN for CHRONIC PAIN SYNDROME Tizanidine Hcl* (Zanaflex*) 4 Mg Tablet 8 MG ORAL Q8HR PRN for MUSCLE SPASMS, TAB Zinc Sulfate (Zinc Sulfate*) 220 Mg Capsule 220 MG ORAL DAILY, CAP Discharge Condition Upon Discharge: stable Discharge Disposition Patient was discharged to SNF Discharge Diagnoses: (1) Acute osteomyelitis (2) Decubitus ulcers Serjio Easton MD Sep 27, 2018 11:41
[2018-09-27 12:00] VITALS: BP 111/70
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
--- NOTE | 2018-09-27 14:55 | NUR ---
P.T WEEKLY PROGRESS NOTES: PATIENT PROGRESS SLOW BUT STEADY IN THERAPY. PATIENT CONTINUE TO BE LIMITED BY ABDOMINAL CRAMPING PAIN AND SEVERE FLEXOR SPASTICITY AND RIGIDITY OF B HIPS AND KNEES: PATIENT CURRENTLY REQUIRE SBA FOR TURNING/ROLLING AND MOD/MIN A X 1 FOR SUPINE TO/FROM SITTING. PATIENT ABLE TO SIT WITH BUE SUPPORT HOLDING ONTO BED RAILS. OVERALL FAIR FUNCTIONAL ENDURANCE. WILL CONTINUE WITH POC.
[2018-09-27 16:00] VITALS: BP 130/76
--- NOTE | 2018-09-27 16:00 | NUR ---
NURSE NOTES: received report from ER/ADRIANNA Shaffer. patient admitted ER d/t ABD pain, vomit with blood. GI lab done at ER. will f/u for admission. Addendum: 09/27/18 at 1933 by AMAYA TEMPLE RN wrong patient
--- NOTE | 2018-09-27 16:02 | NUR ---
NURSE NOTES:WOUND CARE FOLLOW-UP NOTES:L ischial pressure injury S/P Surgical debridement.Befy red granulation noted . NO odor or exudate noted .Edges flat,pale pink and adherent . (L)7.5cm x (W)5.5cm x (D)3.5cm,tunneling 8-11 by 5.6cm @11o'clock. Resolving DTPI R trochanteric .Dark discoloration without erythema or fluctuance at base. Stable dry eschar L heel with callused borders (L)2cm x (W)4cm. Dry, callused skin periwound. Stable dry eschar with callused borders R heel (L)3.5cm x (W)3cm. Sacral area without evidence of skin breakdown. Pt pending discharge . Education provided on wound prevention.Pt instructed to avoid putting pressure on L ischial wound. To avoid sitting up for long periods.Encouraged to alternate between sitting and taking bedrests at least every 2hours . Instructed to shift and off-lift at least hourly when sitting up in w/c. Pt educated of high risks for wound to decline and encouraged to comply with education provided.
--- NOTE | 2018-09-27 19:19 | NUR ---
HAND-OFF: Report given to ADRIANNA Fraga .
--- NOTE | 2018-09-27 19:33 | NUR ---
NURSE NOTES: Received patient in bed, awake, alert, oriented, no acute distress noted, VSS, afebrile, call light is within reach, bed is in low position, locked and alarm is on, will continue to monitor for safety and comfort.
[2018-09-27 20:00] VITALS: BP 145/88
[2018-09-27] MEDS: Dyna-Hex 2% Top Sol 2oz TOPIC SCH (20:00)
--- NOTE | 2018-09-27 23:32 | Neurology Progress Note ---
Interim History Interim History ROS Limited/Unobtainable: No Events: This visit was performed on September 26, [address] Geovanni Norman. Objective Physical Exam Last Vital Signs Date Time Temp Pulse Resp B/P (MAP) Pulse Ox O2 Delivery O2 Flow Rate FiO2 09/27/18 21:00 Room Air 09/27/18 20:00 97.6 71 18 145/88 (107) 09/27/18 16:00 99 09/18/18 14:17 3 Laya Gruber N.P. Sep 27, 2018 23:32
[2018-09-28 00:17] VITALS: BP 136/85
[2018-09-28] MEDS: Vancomycin 1gm/D5W 275ml IVPB SCH ×2 (03:09)
[2018-09-28 04:00] VITALS: BP 132/67
[2018-09-28] MEDS: HYDROmorphone 4mg tab ORAL PRN ×2 (06:32→10:45)
--- NOTE | 2018-09-28 06:54 | NUR ---
HAND-OFF: Report given to Nancy RODAS.
--- NOTE | 2018-09-28 07:13 | NUR ---
NURSE NOTES: received report from ADRIANNA Fraga. patient in bed. A&Ox4, verbally responsive. no respiratory distress noted on room air. no c/o pain at this time. PICC line on left upper arm running fluid. no s/sx of infection. F/C draining. yellow. no odor. no hematuria. P200 jose for wound management. bed in the lowest position. call light within reach. is in the bedside. will continue to monitor.
[2018-09-28 08:00] VITALS: BP 117/77
--- NOTE | 2018-09-28 08:09 | Hematology/Onc Progress Note ---
Assessment/Plan Assessment/Plan Assessment and Recs: # Thrombocytosis - likely related to reactive process (and/or underlying infection) underlying ischium infection --> Current plt count is wnl --> plt trend: 551k-->524k-->400k-->432k --> If continues to be elevated, trend as needed --> Smear reviewed and no abnormalities noted. *Under manual differential --> s/p debridement, and biopsy of bone does show osteomyelitis as suspected per id # Hyperproteinemia with decreased albumin -- this is a dissociation that is abnormal, potentially related to inflammation --> spep and upep have been reviewed --> biopsy of bone doesn't show myeloma, shows osteomyelitis # Leukocytosis is likely due to ischium infection/sacral decub --> WBC is currently resolved --> surgery and Id consulted, appreciate recs --> debridement as per surgery --> on abx --> Wound cx++ # Anemia of chronic disease --> hold off further w/u unless hgb less than 10 --> trend as needed # Full thickness pressure injury to L ischium with acute infection --> debridement per sx and shows osteomyelitis --> ID and surg f/u on abx # Paraplegia # Chronic indwelling Tim catheter # UTI due to chronic tim # Chronic constipation # Protein calorie malnutrition The timing of this note does not necessarily reflect the time of the patient was seen. Greatly appreciate consultation! Subjective Allergies: Coded Allergies: MORPHINE (Verified Allergy, Unknown, 09/17/18) All Systems: reviewed and negative except above Subjective 09/19: no events, no fevers or chills reported, no night sweats, s/p debridement , seen by id 09/20: getting PT today, no events, less pain, recovering from surgery. 09/21: Pt examined at bedside, finished eating breakfast. Breathing is unlabored on room air, no signs of respiratory distress observed. No acute events. 09/23: Pt awake and alert. No signs of distress, family at bedside. 09/24: Pt resting in bed, Alert and oriented, no signs of SOB or pain. 09/25: Pt in bed, no sob. Family at bedside. Skin graft planned for Monday. 09/26: Pt awake and alert, resting in bed. In no apparent distress. 6/06: Pt awake and alert. No resp distress noted. Remains on abx. Pt refusing some meds. 09/28:Pt eating breakfast no acute distress noted. Subjective Allergies: Coded Allergies: MORPHINE (Verified Allergy, Unknown, 09/17/18) Objective Objective Current Medications Medications (Trade) Dose Ordered Sig/Constantin Route PRN Reason Start Time Stop Time Status Last Admin Dose Admin Acetaminophen (Tylenol) 650 mg Q4H PRN ORAL T>100.5 09/19/18 16:15 10/17/18 17:29 Al Hydroxide/Mg Hydroxide (Mylanta) 15 ml Q6H PRN ORAL DYSPEPSIA 09/18/18 14:30 10/18/18 14:29 Ascorbic Acid (Vitamin C) 500 mg DAILY ORAL 09/18/18 09:00 10/18/18 08:59 Carisoprodol (Soma) 350 mg Q8H PRN ORAL muscle spasms 09/17/18 20:06 10/17/18 20:05 09/21/18 23:09 Carisoprodol (Soma) 350 mg THREE TIMES A DAY ORAL 09/22/18 14:00 10/22/18 13:59 09/27/18 17:20 Chlorhexidine Gluconate (Fifi-Hex 2%) 1 applic DAILY@2000 TOPIC 09/21/18 20:00 10/21/18 19:59 09/26/18 20:38 Dextrose (Dextrose 50%) 25 ml Q30M PRN IV Hypoglycemia 09/17/18 17:30 10/17/18 17:29 Dextrose (Dextrose 50%) 50 ml Q30M PRN IV Hypoglycemia 09/17/18 17:30 10/17/18 17:29 Diphenhydramine HCl (Benadryl) 25 mg Q8H PRN ORAL Itching/Pruritis 09/18/18 14:30 10/18/18 14:29 Docusate Sodium (Colace) 100 mg TWICE A DAY ORAL 09/18/18 18:00 10/18/18 17:59 09/24/18 17:39 Duloxetine HCl (Cymbalta) 30 mg DAILY ORAL 09/18/18 09:00 10/18/18 08:59 09/27/18 08:32 Ertapenem 1 gm/ Sodium Chloride 50 ml @ 100 mls/hr Q24H IVPB 09/27/18 16:00 10/02/18 15:59 09/27/18 17:20 Heparin Sodium (Porcine) (Heparin 5000 units/ml) 5,000 units EVERY 12 HOURS SUBQ 09/17/18 21:00 10/17/18 20:59 09/27/18 21:12 Hydromorphone HCl (Dilaudid) 4 mg Q4H PRN ORAL Severe Pain (Pain Scale 7-10) 09/26/18 23:45 10/03/18 23:44 09/28/18 06:32 Lactulose (Cephulac) 20 gm DAILY ORAL 09/18/18 09:00 10/18/18 08:59 Magnesium Hydroxide (Mom) 30 ml BIDPRN PRN ORAL Constipation 09/18/18 14:30 10/18/18 14:29 Multivitamins Therapeutic (Therapeutic Multivitamin) 1 ea DAILY ORAL 09/18/18 09:00 10/18/18 08:59 Naloxegol (Movantik) 25 mg DAILY ORAL 09/18/18 09:00 10/18/18 08:59 09/24/18 09:22 Ondansetron HCl (Zofran) 4 mg Q6H PRN IVP Nausea & Vomiting 09/18/18 14:30 10/18/18 14:29 09/19/18 10:07 Sodium Hypochlorite (Dakin's Quarter Strength) 1 applic DAILY TOPIC 09/18/18 09:00 10/18/18 08:59 09/27/18 08:33 Sodium Chloride 1,000 ml @ 75 mls/hr [id number] IV 09/17/18 21:00 10/17/18 20:59 09/28/18 00:32 Vancomycin HCl (Vanco rx to dose) 1 ea DAILY PRN MISC Per rx protocol 09/17/18 18:00 10/17/18 17:59 Vancomycin HCl 1 gm/Dextrose 275 ml @ 183.708 mls/hr Q12HR@0300,1500 IVPB 09/26/18 15:00 10/01/18 14:59 09/28/18 03:09 Zinc Sulfate (Zinc Sulfate) 220 mg DAILY ORAL 09/18/18 09:00 10/18/18 08:59 Last 24 Hour Vital Signs Date Time Temp Pulse Resp B/P (MAP) Pulse Ox O2 Delivery O2 Flow Rate FiO2 09/28/18 04:00 98.4 65 18 132/67 (88) 09/28/18 00:17 97.4 83 18 136/85 (102) 09/27/18 21:00 Room Air 09/27/18 20:00 97.6 71 18 145/88 (107) 09/27/18 16:00 98.1 86 18 130/76 (94) 99 09/27/18 12:00 98.3 83 18 111/70 (84) 09/27/18 09:00 Room Air 09/27/18 08:00 98.2 83 18 108/69 (82) 09/27/18 04:10 97.0 87 20 117/75 (89) 09/27/18 00:50 97.9 93 20 110/70 (83) 09/26/18 21:00 Room Air 09/26/18 20:00 98.1 85 20 110/69 (83) 09/26/18 16:00 98.1 91 19 111/75 (87) 99 09/26/18 12:00 97.3 82 21 132/72 (92) 96 09/26/18 09:00 Room Air Intake and Output 09/27/18 09/28/18 19:00 07:00 Intake Total 1757.416 ml 600 ml Output Total 1900 ml Balance -142.584 ml 600 ml Intake Oral 840 ml IV Total 917.416 ml 600 ml Output Urine Total 1900 ml # Voids 2 Labs Test 09/26/18 05:00 09/26/18 08:00 White Blood Count 8.9 K/UL (4.8-10.8) Red Blood Count 4.08 M/UL (4.70-6.10) Hemoglobin 10.8 G/DL (14.2-18.0) Hematocrit 33.8 % (42.0-52.0) Mean Corpuscular Volume 83 FL (80-99) Mean Corpuscular Hemoglobin 26.5 PG (27.0-31.0) Mean Corpuscular Hemoglobin Concent 32.0 G/DL (32.0-36.0) Red Cell Distribution Width 13.3 % (11.6-14.8) Platelet Count 432 K/UL (150-450) Mean Platelet Volume 4.9 FL (6.5-10.1) Neutrophils (%) (Auto) 41.7 % (45.0-75.0) Lymphocytes (%) (Auto) 50.4 % (20.0-45.0) Monocytes (%) (Auto) 2.3 % (1.0-10.0) Eosinophils (%) (Auto) 4.6 % (0.0-3.0) Basophils (%) (Auto) 1.1 % (0.0-2.0) Sodium Level 136 MMOL/L (136-145) Potassium Level 3.7 MMOL/L (3.5-5.1) Chloride Level 101 MMOL/L (98-107) Carbon Dioxide Level 28 MMOL/L (21-32) Anion Gap 7 mmol/L (5-15) Blood Urea Nitrogen 18 mg/dL (7-18) Creatinine 1.3 MG/DL (0.55-1.30) Estimat Glomerular Filtration Rate > 60 mL/min (>60) Glucose Level 105 MG/DL (74-106) Calcium Level 9.3 MG/DL (8.5-10.1) Prealbumin 18 mg/dL (10-36) Vancomycin Level Trough 22.9 ug/mL (5.0-12.0) Height (Feet): 5 Height (Inches): 8.00 Weight (Pounds): 190 Objective General Appearance: no apparent distress, alert HEENT: atraumatic, anicteric Neck: normal alignment, normal inspection Respiratory/Chest: lungs clear, normal breath sounds, no respiratory distress Cardiovascular/Chest: normal rate, regular rhythm Abdomen: non tender, soft, no organomegaly Extremities: non-tender, sacral wound+ Neurologic: alert, oriented x 3, normal mood/affect Emma Valdivia NP Sep 28, 2018 08:09
[2018-09-28] MEDS: Dakin's 0.125% Soln (Quarter Strength) 16oz TOPIC SCH (09:00)
[2018-09-28] MEDS: Lactulose 20gm/30ml UDC ORAL SCH (09:00)
[2018-09-28] MEDS: Docusate 100mg cap ORAL SCH (09:00)
[2018-09-28] MEDS: Zinc Sulfate 220mg cap ORAL SCH (09:00)
[2018-09-28] MEDS: Multivitamin w/Minerals tab ORAL SCH (09:00)
[2018-09-28] MEDS: Naloxegol Oxalate 25mg tab ORAL SCH (09:00)
[2018-09-28] MEDS: Ascorbic Acid 500mg tab ORAL SCH (09:00)
[2018-09-28] MEDS: DULoxetine 30mg cap ORAL SCH (09:42)
[2018-09-28] MEDS: Heparin 5000 units/ml inj SUBQ SCH (09:43)
--- NOTE | 2018-09-28 10:30 | NUR ---
BOILER REPAIRMAN NOTES SPOKE WITH NINO FROM [facility],PT ACCEPTED BACK TO ROOM [address]. [facility] ATTENDANT TIME 230.[facility] TO TRANSPORT PT.
--- NOTE | 2018-09-28 11:01 | General Progress Note ---
Assessment/Plan Assessment/Plan: [facility] foul-smelling left ischial ulcer, seen by ID and General Surgery, underwent debridement with bone biopsy confirming acute osteo. Seen by Plastic Surgery who plans to do skin grafting once nutritional status is optimized. Patient will continue on vanco and ertapenem until 10/30. 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 Patient cleared for discharge back to SNF once bed ready Discharge Diagnoses: #Full thickness pressure injury to L ischium with acute infection #s/p Excisional debridement of left ischial decubitus ulcer and nonviable flap #Acute osteomyelitis #Leukocytosis #Paraplegia #Chronic indwelling Tim catheter #UTI due to chronic tim #Chronic constipation #Protein calorie malnutrition Subjective Date patient seen: Sep 28, 2018 Time patient seen: 09:55 ROS Limited/Unobtainable: Yes Cardiovascular: Denies: chest pain Respiratory: Denies: cough Gastrointestinal/Abdominal: Denies: abdominal pain Allergies: Coded Allergies: MORPHINE (Verified Allergy, Unknown, 09/17/18) Subjective Medicine follow up for infected left ischial ulcer, acute osteo underwent Excisional debridement of left ischial decubitus ulcer and nonviable flap 09/18 No new complaints today Awaiting bed at [facility] Objective Last 24 Hour Vital Signs Date Time Temp Pulse Resp B/P (MAP) Pulse Ox O2 Delivery O2 Flow Rate FiO2 09/28/18 04:00 98.4 65 18 132/67 (88) 09/28/18 00:17 97.4 83 18 136/85 (102) 09/27/18 21:00 Room Air 09/27/18 20:00 97.6 71 18 145/88 (107) 09/27/18 16:00 98.1 86 18 130/76 (94) 99 09/27/18 12:00 98.3 83 18 111/70 (84) Intake and Output 09/27/18 09/28/18 19:00 07:00 Intake Total 1757.416 ml 600 ml Output Total 1900 ml Balance -142.584 ml 600 ml Intake Oral 840 ml IV Total 917.416 ml 600 ml Output Urine Total 1900 ml # Voids 2 Height (Feet): 5 Height (Inches): 8.00 Weight (Pounds): 190 General Appearance: no apparent distress, alert Neck: supple Cardiovascular: normal rate, regular rhythm Respiratory/Chest: lungs clear, normal breath sounds Abdomen: non tender, soft Serjio Easton MD Sep 28, 2018 11:01
[2018-09-28 12:00] VITALS: BP 125/82
--- NOTE | 2018-09-28 13:03 | NUR ---
NURSE NOTES: notified dc plan to nely june sunt. given patient report to valentín hitchcock. sopke to ADRIANNA sprague. [phone]. estimate crab picker time by ambulance @[id number]
--- NOTE | 2018-09-28 14:35 | NUR ---
P.T Note: Pt declined to participate in P.T. Pt stated he prefer to rest while waiting to be DC'd back to his prior living arrangement.
--- NOTE | 2018-09-28 15:13 | NUR ---
NURSE NOTES: patient discharged [facility] with fair condition. via ambulance with leifalberto. no respiratory distress on room air. no c/o pain at this time. PICC line on left upper arm 2lumens intact. flushed with NS. changed dressing with sterile technique. F/C intact draining. Colostomy no s/sx of infection. regular soft BM noted. ID band removed. all needs attended. provided dc packet to the ambulance personnel. checked and counted belongings with patient. is on the bedside.
== END 2018-09-28 15:10 | DRG 463 ==
LOC: EDUNIT# 15:28 → EDBD 15:28 → EDBEDREQ 15:49 → EMR 16:18 → 4E 16:44 → EDBEDREQ 17:47 → 4E 09-18 00:57
DX: M86.152 Other acute osteomyelitis, left femur (principal); L89.224 Pressure ulcer of left hip, stage 4; T83.511A Infection and inflammatory reaction due to indwelling urethral catheter, initial encounter; N39.0 Urinary tract infection, site not specified; G82.20 Paraplegia, unspecified; E46 Unspecified protein-calorie malnutrition; F33.8 Other recurrent depressive disorders; G93.40 Encephalopathy, unspecified; L08.9 Local infection of the skin and subcutaneous tissue, unspecified; D47.3 Essential (hemorrhagic) thrombocythemia; D72.829 Elevated white blood cell count, unspecified; E88.09 Other disorders of plasma-protein metabolism, not elsewhere classified; K59.00 Constipation, unspecified; Z68.28 Body mass index [BMI] 28.0-28.9, adult; F19.10 Other psychoactive substance abuse, uncomplicated
CPT/HCPCS: 36415; 36569; 74018; 76937; 80048; 80053; 80202; 81003; 83605; 84134; 84165; 85025; 85610; 85730; 86850; 86900; 86901; 87040; 87070; 87075; 87081; 87086; 87181; 87205; 94003; 94150; 96365; 96375; 99285; J2250; J2405; J8499

== ENCOUNTER 2019-02-01 00:04 | Emergency (ER) | payer MEDICAID, MEDICARE ==
[~2019-02-01] VITALS: Ht 180.3 cm; Wt 87.5 kg
[2019-02-01 00:04] VITALS: BP 122/77
[~2019-02-01 00:04] MED LIST changes: +ASPIR 8181 MG ORAL; +CYCLOBENZAPRINE10 MG ORAL; +CYMBALTA30 MG ORAL; +FERROUS SULFAT325 MG ORAL; +HEPARIN SO5000 UNIT2 SUBQ; +MOVANTIK25 MG PO; +NORCO 5-325 TA1 EACH ORAL; +PRO-STAT LIQUID30 ML ORAL; +PROSTATE PQ TA1 EACH PO
--- NOTE | 2019-02-01 00:04 | NUR ---
ED Nurse Note: PATIENT BROUGHT IN BY [facility] FROM [facility] DUE TO BACK PAIN X YESTERDAY. PER EMS, NO FALL, TRAUMA, OR INJURY. PATIENT IS PARAPLEGIC. HAS PRESSURE ULCER ON LEFT BUTTOCK. ALERT AND ORIENTEDX4, VERBALLY RESPONSIVE. NO SOB. BREATHING EVEN AND UNLABORED. AFEBRILE. VSS.
--- NOTE | 2019-02-01 00:55 | NUR ---
ED Nurse Note: BLOOD COLLECTED AND SENT TO LAB.
[2019-02-01] MEDS ORDERED: HYDROmorphone 1mg/ml Carpuject IM ONE (01:00)
--- NOTE | 2019-02-01 01:13 | Emergency Room Report ---
History of Present Illness General Chief Complaint: Back Pain-No Injury Source: Patient, Medical Record Present Illness HPI Patient presents with complaints of diffuse abdominal cramp lower back pain reports that is been ongoing for the past few days Denies any headache denies any chest pain denies any vomiting or diarrhea patient is paraplegic and has Kelley catheter indwelling denies any recent trauma Denies any diarrhea Allergies: Coded Allergies: MORPHINE (Verified Allergy, Unknown, 09/17/18) Patient History Past Medical History: see triage record Reviewed Nursing Documentation: PMH: Agreed; PSxH: Agreed Nursing Documentation-PMH Past Medical History: No History, Except For Hx Cancer: No Hx Neurologic Surgery: Yes - spine surgery Review of Systems All Other Systems: negative except mentioned in HPI Physical Exam Vital Signs Date Time Temp Pulse Resp B/P (MAP) Pulse Ox O2 Delivery O2 Flow Rate FiO2 01/31/19 23:53 98.2 90 18 122/77 (92) 99 Room Air Sp02 EP Interpretation: reviewed, normal General Appearance: well appearing, no apparent distress Head: normocephalic, atraumatic Eyes: bilateral eye PERRL, bilateral eye EOMI ENT: normal pharynx Neck: full range of motion, supple Respiratory: lungs clear Cardiovascular #1: regular rate, rhythm Gastrointestinal: non tender, soft Musculoskeletal: other - Paraplegia Neurologic: alert, oriented x3, responsive Skin: other - decubitus ulcer appears clean, Lymphatic: no adenopathy Medical Decision Making Diagnostic Impression: Primary Impression: Back pain Additional Impression: Decubitus ulcers ER Course Patient has baseline blood work initiated for further evaluation given consideration and differential such as infectious pathology, gastric intraintestinal patient's blood work is at baseline levels Patient's abdomen remains soft patient has chronic decubitus ulcer which is Obtaining and getting outpatient prison follow-up and at this time is stable for close outpatient follow-up Labs Test 02/01/19 01:06 White Blood Count 10.8 K/UL (4.8-10.8) Red Blood Count 4.43 M/UL (4.70-6.10) Hemoglobin 11.4 G/DL (14.2-18.0) Hematocrit 35.7 % (42.0-52.0) Mean Corpuscular Volume 81 FL (80-99) Mean Corpuscular Hemoglobin 25.7 PG (27.0-31.0) Mean Corpuscular Hemoglobin Concent 31.9 G/DL (32.0-36.0) Red Cell Distribution Width 13.5 % (11.6-14.8) Platelet Count 468 K/UL (150-450) Mean Platelet Volume 4.6 FL (6.5-10.1) Neutrophils (%) (Auto) 53.8 % (45.0-75.0) Lymphocytes (%) (Auto) 32.7 % (20.0-45.0) Monocytes (%) (Auto) 5.2 % (1.0-10.0) Eosinophils (%) (Auto) 7.2 % (0.0-3.0) Basophils (%) (Auto) 1.1 % (0.0-2.0) Sodium Level 137 MMOL/L (136-145) Potassium Level 3.6 MMOL/L (3.5-5.1) Chloride Level 106 MMOL/L (98-107) Carbon Dioxide Level 25 MMOL/L (21-32) Anion Gap 6 mmol/L (5-15) Blood Urea Nitrogen 9 mg/dL (7-18) Creatinine 0.9 MG/DL (0.55-1.30) Estimat Glomerular Filtration Rate > 60 mL/min (>60) Glucose Level 130 MG/DL (74-106) Calcium Level 8.8 MG/DL (8.5-10.1) Total Bilirubin 0.2 MG/DL (0.2-1.0) Aspartate Amino Transf (AST/SGOT) 25 U/L (15-37) Alanine Aminotransferase (ALT/SGPT) 14 U/L (12-78) Alkaline Phosphatase 147 U/L (46-116) Total Protein 8.2 G/DL (6.4-8.2) Albumin 2.1 G/DL (3.4-5.0) Globulin 6.1 g/dL Albumin/Globulin Ratio 0.3 (1.0-2.7) Last Vital Signs Date Time Temp Pulse Resp B/P (MAP) Pulse Ox O2 Delivery O2 Flow Rate FiO2 02/01/19 00:04 98.2 77 18 122/77 99 Room Air Status: improved Disposition: ER SNF Condition: Improved Additional Instructions: Patient is provided with the discharge instructions notified to follow up with primary doctor in the next 2-3 days otherwise return to the er with any worsening symptoms. Please note that this report is being documented using DRAGON technology. This can lead to erroneous entry secondary to incorrect interpretation by the dictating instrument. Merry Flannery DO Feb 01, 2019 01:13
[2019-02-01 01:23] LABS: BASOPHILS % (AUTO) 1.1 % (0.0-2.0); EOSINOPHILS % (AUTO) 7.2 % (0.0-3.0); HEMATOCRIT 35.7 % (42.0-52.0); HEMOGLOBIN 11.4 G/DL (14.2-18.0); LYMPHOCYTES % (AUTO) 32.7 % (20.0-45.0); MEAN CORPUSCULAR VOLUME 81 FL (80-99); MONOCYTES % (AUTO) 5.2 % (1.0-10.0); NEUTROPHILS % (AUTO) 53.8 % (45.0-75.0); PLATELET COUNT 468 K/UL (150-450); RED BLOOD COUNT 4.43 M/UL (4.70-6.10); RED CELL DISTRIBUTION WIDTH 13.5 % (11.6-14.8); WHITE BLOOD COUNT 10.8 K/UL (4.8-10.8)
[2019-02-01 01:37] LABS: ANION GAP 6 mmol/L (5-15); BLOOD UREA NITROGEN 9 mg/dL (7-18); CALCIUM 8.8 MG/DL (8.5-10.1); CARBON DIOXIDE 25 MMOL/L (21-32); CHLORIDE 106 MMOL/L (98-107); CREATININE 0.9 MG/DL (0.55-1.30); POTASSIUM 3.6 MMOL/L (3.5-5.1); SODIUM 137 MMOL/L (136-145)
[2019-02-01 01:43] LABS: ALANINE AMINOTRANSFERASE 14 U/L (12-78); ALBUMIN 2.1 G/DL (3.4-5.0); ALBUMIN/GLOBULIN RATIO 0.3 (1.0-2.7); ALKALINE PHOSPHATASE 147 U/L (46-116); ASPARTATE AMINO TRANSFERASE 25 U/L (15-37); BILIRUBIN,TOTAL 0.2 MG/DL (0.2-1.0)
[2019-02-01 02:56] VITALS: BP 128/79
--- NOTE | 2019-02-01 03:45 | NUR ---
Spoke with Margot at [facility]- aware of patient going back.
--- NOTE | 2019-02-01 03:55 | NUR ---
[facility] is here now, report given, IV SL removed, patient aware of going back and agreed. All belongings with patient.
[2019-02-01 03:58] VITALS: BP 128/79
== END 2019-02-01 03:55 ==
LOC: EDBD 00:04 → EMR 00:42
DX: M54.5 Low back pain (principal); G82.20 Paraplegia, unspecified; L89.329 Pressure ulcer of left buttock, unspecified stage
CPT/HCPCS: 36415; 80053; 85025; 96372; 99284; J1170